=== PATIENT | male | born 1970 | race Caucasian/White ===

== ENCOUNTER 2020-06-17 00:49 | Inpatient (IN) | payer OTHER, SELFPAY ==
[2020-06-17] MEDS ORDERED: Nitroglycerin 2% Ointment 1 INCH/1 GM Packet ONE (01:12)
[2020-06-17 01:36] LABS: #Basophils 0.1 thou/uL (0.0-0.2); #Eosinphils 0.2 thou/uL (0.0-0.7); #Lymphocytes 2.1 thou/uL (1.20-3.40); #Neutrophils 10.7 thou/uL (1.40-6.50); %Basophils 0.8 % (0.0-1.0); %Eosinophils 1.5 % (0.0-10.0); %Monocytes 6.9 % (0.0-10.0); %Neutrophils 75.9 % (42.0-75.0); Hemoglobin 14.8 g/dL (14.0-18.0); Mean Corpuscular HGB CONC 31.3 g/dL (32.0-36.0); Mean Corpuscular Hemoglobin 31.3 pg (27.0-31.0); Mean Platelet Volume 7.5 fL (7.4-10.4); Platelet Count 293 thou/uL (130-400); RBC Distribution Width 13.6 % (11.5-14.5); Red Blood Cell (RBC) Count 4.74 mill/uL (4.70-6.10); White Blood Cell (WBC) Count 14.1 thou/uL (4.8-10.8)
[2020-06-17 01:56] LABS: ALT (SGPT) 61 U/L (8-55); AST (SGOT) 37 U/L (5-34); Albumin 3.5 g/dL (3.5-5.0); Alkaline Phosphatase 110 U/L (40-110); Anion Gap 15 mmol/L (10-20); BUN (Urea Nitrogen) 29 mg/dL (8.9-20.6); Calc. Creatinine Clearance 0 mL/min (70-130); Calcium 8.3 mg/dL (7.8-10.44); Carbon Dioxide 24 mmol/L (22-29); Chloride 107 mmol/L (98-107); Globulin 2.7 g/dL (2.4-3.5); Glucose 157 mg/dL (70-105); Potassium 4.6 mmol/L (3.5-5.1); Protein, Total 6.2 g/dL (6.0-8.3); Sodium 141 mmol/L (136-145)
[2020-06-17] MEDS ORDERED: Aspirin 325 MG TAB ONE (02:22)
[2020-06-17 02:30] LABS: CKMB 2.1 ng/mL (0-6.6)
[2020-06-17 02:55] LABS: SARS-CoV-2 NAA Rapid Test Not Detected (NotDetected)
[2020-06-17] MEDS ORDERED: Furosemide 40 MG/4 ML VIAL ONE (03:11)
[2020-06-17] MEDS ORDERED: Labetalol HCl 100 MG/20 ML VIAL SLOW IVP PRN (03:55)
[2020-06-17] MEDS ORDERED: hydrALAZINE 20 MG/ML VIAL SLOW IVP PRN (03:55)
[2020-06-17] MEDS ORDERED: Bisacodyl 5 MG TAB PO PRN (03:55)
--- NOTE | 2020-06-17 03:55 | PDOC.HHP ---
Hospitalist HPI - History of Present Illness History of Present Illness: ADMISSION DATE: 06/17/2020 TIME OF ASSESSMENT: 08 29 PRIMARY CARE PHYSICIAN: Junior Lester CHIEF COMPLAINT: Difficulty breathing and leg swelling x3 weeks HPI: Patient is a 49-year-old male past medical history significant for congestive heart failure, hypertension, and arthritis. He states he was diagnosed with congestive heart failure a year ago but has never had an echo completed or seen a cook helper dessert. Patient states that 3 weeks ago his legs began to swell intermittently and he had difficulty lying flat at night when sleeping and would also become short of breath with exertion. At times he would also experience a panic-like sensation due to feeling like he could not breathe. Three weeks ago he states he weighed 243 pounds and he is currently at 290 when he last weighed himself today. Patient also states that he has had some increased swelling in his stomach and has a harder time having a bowel movement. Patient denies chest pain, contact with sick persons, fever, urinary symptoms. He does say he takes a "fluid pill" sometimes but it does not seem to help him. ED COURSE: Vital Signs: Blood pressure 97/69, pulse 63, respiratory rate 24, temp 98.7, 95% on 2 L oxygen Today in the ER they completed a chest x-ray, EKG, lab work. He was given aspirin 325 mg, Lasix 80 mg IV and nitro 1 inch topical. The nitro was removed once patient started to become hypotensive. PAST MEDICAL HISTORY: CHF, hypertension, psoriasis arthritis PAST SURGICAL HISTORY: No surgical history SOCIAL HISTORY: Patient lives at home. He has no tobacco smoking history. He denies current alcohol use. He does not frequently use marijuana. FAMILY HISTORY: Hypertension ALLERGIES: CodeineGI discomfort CURRENT MEDICATIONS: "Fluid pill" Hospitalist ROS - Review of Systems Constitutional: reports: other (weight gain) Respiratory: reports: shortness of breath, SOB with excertion Cardiovascular: reports: orthopnea, paroxysmal noc. dyspnea, edema Gastrointestinal: reports: constipation All other systems reviewed; all pertinent +/- noted in HPI/Subj - Exam General Appearance: NAD, awake alert Eye: PERRL ENT: normocephalic atraumatic Neck: supple Heart: RRR, no murmur, no gallops, no rubs, diminshed peripheral pulses Respiratory: CTAB, no wheezes, no rales, no ronchi, normal chest expansion Gastrointestinal: non-tender, normal bowel sounds, no guarding, distended Extremities - other findings: 3+ edema BLE, chronic venous stasis changes Neurological: no focal deficits Musculoskeletal: no muscle wasting Psychiatric: normal affect, normal behavior, A&O x 3 Hospitalist Results - Labs Result Diagrams: 06/17/20 01:26 06/17/20 01:26 Lab results: WBC 14.1 thou/uL (4.8-10.8) H 06/17/20 01:26 Hgb 14.8 g/dL (14.0-18.0) 06/17/20 01:26 Hct 47.4 % (42.0-52.0) 06/17/20 01: MCV 100.0 fL (78.0-98.0) H 06/17/20 01:26 Plt Count 293 thou/uL (130-400) 06/17/20 01:26 Neutrophils % 75.9 % (42.0-75.0) H 06/17/20 01:26 Sodium 141 mmol/L (136-145) 06/17/20 01:26 Potassium 4.6 mmol/L (3.5-5.1) 06/17/20 01:26 Chloride 107 mmol/L (98-107) 06/17/20 01:26 Carbon Dioxide 24 mmol/L (22-29) 06/17/20 01:26 BUN 29 mg/dL (8.9-20.6) H 06/17/20 01:26 Creatinine 1.76 mg/dL (0.7-1.3) H 06/17/20 01:26 Glucose 157 mg/dL (70-105) H 06/17/20 01:26 Calcium 8.3 mg/dL (7.8-10.44) 06/17/20 01:26 Total Bilirubin 1.0 mg/dL (0.2-1.2) 06/17/20 01:26 AST 37 U/L (5-34) H 06/17/20 01:26 ALT 61 U/L (8-55) H 06/17/20 01:26 Alkaline Phosphatase 110 U/L (40-110) 06/17/20 01:26 CK-MB (CK-2) 2.1 ng/mL (0-6.6) 06/17/20 01:26 Troponin I 0.035 ng/mL (< 0.028) H 06/17/20 01:26 B-Natriuretic Peptide 1391.6 pg/mL (0-100) H 06/17/20 01:26 Serum Total Protein 6.2 g/dL (6.0-8.3) 06/17/20 01:26 Albumin 3.5 g/dL (3.5-5.0) 06/17/20 01:26 - EKG Interpretation EKG: Normal sinus rhythm with first-degree AV block, LVH 75 bpm - Radiology Interpretation Chest x-ray Status: image reviewed by me, report reviewed by me Hospitalist H&P A/P - Plan Plan: Acute CHF exacerbation BNP 1391.6 orthopnea, proximal nocturnal dyspnea, shortness of breath with exertion, 3+ edema to bilateral lower extremities Echo in a.m.no previous echo Cardiology, cardiac rehab, heart failure clinic referrals TSH and magnesium with BMP and CBC in a.m. Strict I&O Weigh patient dailybase weight 3 weeks ago was 243 and patient states he currently weighs 290 Elevated troponins Monitor on telemetry Denies any chest pain Continue to trend troponins Possibly slightly elevated due to demand from heart failure MAXINE Current GFR 42, previous from 2018 was 67 Current creatinine 1.76, previous was 1.17 in 2018 Continue to monitor, may show improvement after patient begins to diurese Hypertension Monitor every 4 hours Restart home medications once reconciledpatient unable to name any of his medications at this time VTE prophylaxis in place with Lovenox CODE STATUS: Full Surrogate decision maker is his mother
[2020-06-17 05:47] VITALS: BMI 39.5
[2020-06-17 06:22] LABS: Troponin I 0.051 ng/mL (< 0.028)
[2020-06-17] MEDS: Furosemide 40 MG/4 ML VIAL SLOW IVP SCH ×2 (07:14→14:23)
[2020-06-17] MEDS ORDERED: HumaLOG 300 UNITS/3 ML VIAL SC PRN (08:22)
[2020-06-17] MEDS ORDERED: Dextrose 50% Abboject 50 ML SYRINGE SLOW IVP PRN (08:22)
[2020-06-17] MEDS ORDERED: Dextrose 5% in Water 1,000 ML IV PRN (08:22)
--- NOTE | 2020-06-17 08:51 | RAD ---
EXAM: Chest one view: HISTORY: Dyspnea abdominal pain COMPARISON: 11/18/2017 FINDINGS: Heart size: Moderate cardiomegaly. Lungs: Clear of acute process. No evidence for confluent lobar pneumonia, significant pleural effusion, acute edema, or pneumothorax , or other significant acute process. IMPRESSION: Moderate cardiomegaly.
[2020-06-17] MEDS: Aspirin 325 mg Enteric Coated Tablet PO SCH (09:34)
[2020-06-17] MEDS: Enoxaparin Sodium 40 MG/0.4 ML SYRINGE SC SCH (09:34)
--- NOTE | 2020-06-17 14:13 | PDOC.HOSPP ---
- Subjective Encounter Date: 06/17/20 Encounter Time: 08:20 Subjective: no sob or chest pain has h/o progressive swelling of lower extrimities now creeping upto to lower half of abd no prior h/o heart failure or cad, has not had any cardiac w/u mother at bedside - Objective Vital Signs & Weight: Vital Signs (12 hours) Temp Pulse Pulse Pulse Resp BP BP 06/17/20 11:14 58 L 12 06/17/20 09:45 56 L 59 L 115/85 136/95 H 06/17/20 08:08 98 F 56 L 16 06/17/20 06:34 06/17/20 05:20 97.9 F 64 18 BP Pulse Ox 06/17/20 11:14 124/87 98 06/17/20 09:45 06/17/20 08:08 116/83 06/17/20 06:34 99 06/17/20 05:20 129/87 99 Weight Weight 275 lb 11.2 oz Result Diagrams: 06/17/20 01:26 06/17/20 01:26 Additional Labs: Accuchecks 06/17/20 11:13 POC Glucose 112 H Hospitalist ROS - Medication Medications: Active Medications Generic Name Dose Route Start Last Admin Trade Name Freq PRN Reason Stop Dose Admin Aspirin 325 mg 06/17/20 09:00 06/17/20 09:34 Aspirin 325 Mg Enteric Coated Tablet PO 325 mg DAILY BRIA Administration Enoxaparin Sodium 40 mg 06/17/20 09:00 06/17/20 09:34 Enoxaparin Sodium 40 Mg/0.4 Ml Syringe SC 40 mg 0900 BRIA Administration Furosemide 40 mg 06/17/20 06:00 06/17/20 07:14 Furosemide 40 Mg/4 Ml Vial SLOW IVP Not Given 0600,1400 BRIA Sodium Chloride 10 ml 06/17/20 09:00 06/17/20 09:34 Flush - Normal Saline 10 Ml Syringe IVF 10 ml Q12HR BRIA Administration - Exam General Appearance: awake alert Eye: PERRL, anicteric sclera ENT: no oropharyngeal lesions, moist mucosa Neck: supple, no JVD Heart: RRR, no murmur Respiratory: no wheezes, no ronchi, rales Gastrointestinal: soft, non-tender, normal bowel sounds Gastrointestinal - other findings: abd wall edema+ Extremities: no cyanosis, 2+ LE edema Neurological: cranial nerve grossly intact, no focal deficits Psychiatric: normal affect, A&O x 3 Hosp A/P (1) CHF exacerbation Code(s): I50.9 - HEART FAILURE, UNSPECIFIED Status: Suspected Qualifiers: Heart failure type: unspecified Qualified Code(s): I50.9 - Heart failure, unspecified (2) Cardiomyopathy Code(s): I42.9 - CARDIOMYOPATHY, UNSPECIFIED Status: Suspected Qualifiers: Cardiomyopathy type: unspecified Qualified Code(s): I42.9 - Cardiomyopathy, unspecified (3) Psoriasis Code(s): L40.9 - PSORIASIS, UNSPECIFIED Status: Chronic (4) HTN (hypertension) Code(s): I10 - ESSENTIAL (PRIMARY) HYPERTENSION Status: Chronic Qualifiers: Hypertension type: essential hypertension Qualified Code(s): I10 - Essential (primary) hypertension (5) MAXINE (acute kidney injury) Code(s): N17.9 - ACUTE KIDNEY FAILURE, UNSPECIFIED Status: Acute (6) DM type 2 (diabetes mellitus, type 2) Status: Acute Qualifiers: Diabetes mellitus detention insulin use: without adjunct faculty for medical terminology use (7) Obesity (BMI 30-39.9) Code(s): E66.9 - OBESITY, UNSPECIFIED Status: Chronic - Plan gentle diuresis, watch for renal function cardiology consultation, echo pending has enormous weight gain of around 47lbs in 3-4 weeks (from 243 to 290lbs) continue aspirin marcella hose to lower extremities he has h/o using cocaine 15yrs back for 5 yrs duration, thc off and on, no other drugs hemostable has no insurance/non compliance, might need stress test once he has diuresed well
[2020-06-17 17:26] LABS: Amphetamine Not Detected (NotDetected); Barbiturates Screen Not Detected (NotDetected); Benzodiazepine Screen Not Detected (NotDetected); Cocaine Metabolite Screen Not Detected (NotDetected); Medtox Control Line Valid? VALID (VALID); Medtox Reader # READER 4; Methadone Not Detected (NotDetected); Methamphetamine Not Detected (NotDetected); Opiate Screen Not Detected (NotDetected); Oxycodone Screen Not Detected (NotDetected); Phencyclidine (PCP) Not Detected (NotDetected); THC/Cannabinoid Screen Detected (NotDetected); Tricyclic Screen Not Detected (NotDetected)
[2020-06-17 19:36] LABS: Acetaminophen Less than 6.0 mcg/mL (10.0-30.0); Alcohol Less than 10 mg/dL (Less than 10); Salicylate Less than 8.0 mg/dL (15.0-30.0)
[2020-06-17 22:37] LABS: HIV (1/2) Antibody/Antigen Non-Reactive (NonReactive); HIV 1/2 INDEX 0.09 S/CO (<1.00)
[2020-06-18] MEDS ORDERED: traZODone HCl 50 MG TAB PO SCH (00:15)
[2020-06-18 05:01] LABS: Anion Gap 17 mmol/L (10-20); BUN (Urea Nitrogen) 31 mg/dL (8.9-20.6); Calc. Creatinine Clearance 101 mL/min (70-130); Calcium 8.2 mg/dL (7.8-10.44); Carbon Dioxide 21 mmol/L (22-29); Chloride 106 mmol/L (98-107); Glucose 103 mg/dL (70-105); Magnesium 2.1 mg/dL (1.6-2.6); Potassium 4.2 mmol/L (3.5-5.1); Sodium 140 mmol/L (136-145)
[2020-06-18 05:11] LABS: #Basophils 0.1 thou/uL (0.0-0.2); #Eosinphils 0.2 thou/uL (0.0-0.7); #Neutrophils 5.9 thou/uL (1.40-6.50); %Basophils 0.6 % (0.0-1.0); %Eosinophils 1.8 % (0.0-10.0); %Lymphocytes 29.4 % (21.0-51.0); %Monocytes 9.5 % (0.0-10.0); %Neutrophils 58.6 % (42.0-75.0); Hemoglobin 14.6 g/dL (14.0-18.0); Mean Corpuscular HGB CONC 32.4 g/dL (32.0-36.0); Mean Corpuscular Hemoglobin 32.2 pg (27.0-31.0); Mean Corpuscular Volume 99.3 fL (78.0-98.0); Mean Platelet Volume 7.6 fL (7.4-10.4); Platelet Count 248 thou/uL (130-400); Platelet Morphology Comment Appears Adequate; RBC Distribution Width 13.7 % (11.5-14.5); RBC Morphology Normal; Red Blood Cell (RBC) Count 4.54 mill/uL (4.70-6.10)
[2020-06-18 05:15] LABS: HBCM Index 0.09 S/CO (0-0.79); HBSAg Index 0.19 S/CO (0-0.99); Hep A IgM AB Non-Reactive (NonReactive); Hep B Surf Ag Non-Reactive S/CO (NonReactive); Hep C IgG Ab Non-Reactive (NonReactive); Hep C Index 0.07 S/CO (0-0.79); Hepatitis B Core IgM Abs Non-Reactive (NonReactive)
[2020-06-18] MEDS: Furosemide 40 MG/4 ML VIAL SLOW IVP SCH ×2 (05:52→15:16)
--- NOTE | 2020-06-18 07:21 | CON ---
DATE OF CONSULTATION: 06/17/2020 INDICATION FOR CONSULTATION: A 49-year-old patient with new onset congestive heart failure. HISTORY OF PRESENT ILLNESS: This very unfortunate 49-year-old gentleman who has a history apparently diagnosed approximately a year ago stating that he was having some congestive heart failure. 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 He has a history of hypertension and tobacco abuse as well as arthritis. Recently, he gained over 30 to 40 pounds of weight and said he became increasingly short of breath and had lower extremity edema. He has had problems in the past for at least a year where he had some lower extremity edema on the left side, and this would resolve over time, but at this time, it did not resolve. He takes diuretics, but apparently, they have not been working, and he presented to the emergency room. He denied any significant chest pain. He said he does have some fullness with some tightness when he gets volume overloaded, but otherwise says he had been doing relatively well. PAST MEDICAL HISTORY: Significant for congestive heart failure, hypertension, psoriasis. He has diabetes. He has problems with sleeping. He has depression. PAST SURGICAL HISTORY: He has had no previous surgeries. SOCIAL HISTORY: He lives with family. He has smoked a half a pack a day for up to 30 years. He has no significant alcohol use. He occasionally uses marijuana. FAMILY HISTORY: Positive for hypertension, but no significant congestive heart failure or early deaths. ALLERGIES: HE IS ALLERGIC TO CODEINE WHICH CAUSES GI UPSET. MEDICATIONS: He takes medicines for his blood pressure, for diabetes, and he takes metformin on a p.r.n. basis, he has medicines to help sleep, he has medicines for depression, and he also takes potassium and most likely he takes furosemide, he is uncertain of the dose. REVIEW OF SYSTEMS: A 12-point review of systems is unremarkable except what is noted in the history of present illness. He denies any GI or complaints or musculoskeletal complaints except for the edema and no neurological complaints. PHYSICAL EXAMINATION: GENERAL: Reveals a morbidly obese gentleman who is awake and alert. He is very pleasant. HEENT: Unremarkable. PULMONARY: His chest actually does not show any significant rales, rhonchi, or wheezing. It is clear overall. CARDIOVASCULAR: He has a regular rate and rhythm. There are no gross murmurs noted. ABDOMEN: Shows morbid obesity without any significant abnormality. EXTREMITIES: Show 2+ lower extremity edema all the way up to the groin. NEUROLOGIC: He appears to be intact. LABORATORY DATA: Shows a WBC of 14.1, hemoglobin 14.8, platelet count was 293,000. His BNP was 1391. Troponin I was 0.03, increased up to 0.05. Sodium was 141, potassium 4.6, BUN was 29, creatinine 1.76, and blood sugar was 157. He did have an echocardiogram today which showed an ejection fraction of 10% to 15% with significantly dilated right ventricle and also left atrium was dilated, and I believe he had left ventricular dilatation also. His EKG shows a sinus rhythm with a first-degree AV heart block and a left bundle-branch block. IMPRESSION: 1. Congestive heart failure with significant cardiomyopathy of uncertain etiology. He denied any significant illicit drug use in the past such as crack cocaine or any other cocaine type substances that may have caused this. It may be due to diabetes and long-standing hypertension. We will need to diurese the patient significantly, and then once he is diuresed, I would suggest he undergo a cardiac catheterization to rule out evidence of severe underlying coronary artery disease as the possible etiology of the cardiomyopathy. 2. Mild diabetes. He most likely should be placed on some type of medication and so may be better at this time. Metformin may not be the best choice with his congestive heart failure. 3. He has a history of hypertension. The blood pressure is under good control at this time. 4. History of depression. I do not know exactly what medicines he was taking, but this may need to be addressed, and we can start him back on his medications. We will continue to follow the patient with you throughout his hospital course. He will certainly need diuresis and then a cardiac catheterization when he is stable to undergo the procedure. 5. Left bundle-branch block. We are uncertain of the duration of this, which also most likely is associated with his dilatation and possible underlying coronary disease. Job ID: [id number]
[2020-06-18] MEDS: Aspirin 325 mg Enteric Coated Tablet PO SCH (08:55)
[2020-06-18] MEDS: Enoxaparin Sodium 40 MG/0.4 ML SYRINGE SC SCH (08:56)
[2020-06-18] MEDS ORDERED: hydrALAZINE 25 MG TAB PO SCH (15:00)
--- NOTE | 2020-06-18 15:44 | PDOC.HOSPP ---
- Subjective Encounter Date: 06/18/20 Encounter Time: 11:00 Subjective: Patient up in chair denies any complaints. - Objective Vital Signs & Weight: Vital Signs (12 hours) Temp Pulse Pulse Pulse Resp BP BP 06/18/20 15:11 98.5 F 71 18 06/18/20 10:56 98.5 F 74 17 06/18/20 10:30 77 73 167/120 H 148/102 H 06/18/20 08:40 97.4 F L 71 14 06/18/20 04:00 97.6 F 70 15 BP BP Pulse Ox 06/18/20 15:11 174/108 H 100 06/18/20 10:56 162/109 H 99 06/18/20 10:30 06/18/20 08:40 171/113 H 95 06/18/20 04:00 134/83 96 Weight Weight 275 lb 9.6 oz I&O: 06/17/20 06/18/20 06/19/20 06:59 06:59 06:59 Intake Total 730 Output Total 1400 Balance -670 Result Diagrams: 06/18/20 03:18 06/18/20 03:18 Additional Labs: Accuchecks 06/18/20 06/17/20 06/17/20 05:32 20:36 16:08 POC Glucose 116 H 177 H 133 H Hospitalist ROS - Review of Systems Cardiovascular: denies: chest pain, palpitations, orthopnea, paroxysmal noc. dyspnea, edema, light headedness, other Gastrointestinal: denies: nausea, vomiting, abdominal pain, diarrhea, constipation, melena, hematochezia, other Genitourinary: denies: dysuria, frequency, incontinence, hematuria, retention, other - Medication Medications: Active Medications Generic Name Dose Route Start Last Admin Trade Name Freq PRN Reason Stop Dose Admin Aspirin 325 mg 06/17/20 09:00 06/18/20 08:55 Aspirin 325 Mg Enteric Coated Tablet PO 325 mg DAILY BRIA Administration Enoxaparin Sodium 40 mg 06/17/20 09:00 06/18/20 08:56 Enoxaparin Sodium 40 Mg/0.4 Ml Syringe SC 40 mg 0900 BRIA Administration Furosemide 40 mg 06/17/20 06:00 06/18/20 15:16 Furosemide 40 Mg/4 Ml Vial SLOW IVP 40 mg 0600,1400 BRIA Administration Hydralazine HCl 50 mg 06/18/20 15:00 06/18/20 15:16 Hydralazine 25 Mg Tab PO 50 mg TID BRIA Administration Sodium Chloride 10 ml 06/17/20 09:00 06/18/20 08:56 Flush - Normal Saline 10 Ml Syringe IVF 10 ml Q12HR BRIA Administration - Exam Neck: negative: supple, symmetric, no JVD, no thyromegaly, no lymphadenopathy, no carotid bruit, JVD Heart: negative: RRR, no murmur, no gallops, no rubs, normal peripheral pulses, irregular, diminshed peripheral pulses, murmur present, II/IV, III/IV Respiratory: negative: CTAB, no wheezes, no rales, no ronchi, normal chest expansion, no tachypnea, normal percussion, rales, rhonchi, tachypneic, wheezes Gastrointestinal: negative: soft, non-tender, non-distended, normal bowel sounds, no palpable masses, no hepatomegaly, no splenomegaly, no bruit, no guarding, no rigidity, tender to palpation, distended, diminished bowl sounds, voluntary guarding Hosp A/P - Plan (1) CHF exacerbation Code(s): I50.9 - HEART FAILURE, UNSPECIFIED Status: Suspected Qualifiers: Heart failure type: unspecified Qualified Code(s): I50.9 - Heart failure, unspecified (2) Cardiomyopathy Code(s): I42.9 - CARDIOMYOPATHY, UNSPECIFIED Status: Suspected Qualifiers: Cardiomyopathy type: unspecified Qualified Code(s): I42.9 - Cardiomyopathy, unspecified (3) Psoriasis Code(s): L40.9 - PSORIASIS, UNSPECIFIED Status: Chronic (4) HTN (hypertension) Code(s): I10 - ESSENTIAL (PRIMARY) HYPERTENSION Status: Chronic Qualifiers: Hypertension type: essential hypertension Qualified Code(s): I10 - Essential (primary) hypertension (5) MAXINE (acute kidney injury) Code(s): N17.9 - ACUTE KIDNEY FAILURE, UNSPECIFIED Status: Acute (6) DM type 2 (diabetes mellitus, type 2) Status: Acute Qualifiers: Diabetes mellitus terminal superintendent insulin use: without [facility] use (7) Obesity (BMI 30-39.9) Code(s): E66.9 - OBESITY, UNSPECIFIED Status: Chronic - Plan gentle diuresis, watch for renal function cardiology consultation, echo pending has enormous weight gain of around 47lbs in 3-4 weeks (from 243 to 290lbs) continue aspirin marcella hose to lower extremities he has h/o using cocaine 15yrs back for 5 yrs duration, thc off and on, no other drugs hemostable has no insurance/non compliance, might need stress test once he has diuresed well 1/2 patient will undergo cardiac catheterization per manager science notes. will increase his blood pressure medication.
[2020-06-18] MEDS: hydrALAZINE 25 MG TAB PO SCH (20:44)
[2020-06-18] MEDS: traZODone HCl 50 MG TAB PO SCH (20:44)
[2020-06-19 04:09] LABS: #Basophils 0.1 thou/uL (0.0-0.2); #Eosinphils 0.2 thou/uL (0.0-0.7); #Lymphocytes 2.3 thou/uL (1.20-3.40); #Monocytes 0.7 thou/uL (0.11-0.59); #Neutrophils 5.8 thou/uL (1.40-6.50); %Basophils 1.1 % (0.0-1.0); %Eosinophils 1.7 % (0.0-10.0); %Lymphocytes 25.2 % (21.0-51.0); %Monocytes 8.1 % (0.0-10.0); Hemoglobin 14.4 g/dL (14.0-18.0); Mean Corpuscular Hemoglobin 31.5 pg (27.0-31.0); Mean Corpuscular Volume 98.2 fL (78.0-98.0); Mean Platelet Volume 8.8 fL (7.4-10.4); Platelet Count 283 thou/uL (130-400); RBC Distribution Width 13.7 % (11.5-14.5); Red Blood Cell (RBC) Count 4.58 mill/uL (4.70-6.10); White Blood Cell (WBC) Count 9.1 thou/uL (4.8-10.8)
[2020-06-19 04:33] LABS: Anion Gap 16 mmol/L (10-20); BUN (Urea Nitrogen) 28 mg/dL (8.9-20.6); Calc. Creatinine Clearance 108 mL/min (70-130); Calcium 8.4 mg/dL (7.8-10.44); Carbon Dioxide 24 mmol/L (22-29); Chloride 104 mmol/L (98-107); Glucose 123 mg/dL (70-105); Potassium 4.2 mmol/L (3.5-5.1); Sodium 140 mmol/L (136-145)
[2020-06-19] MEDS: Furosemide 40 MG/4 ML VIAL SLOW IVP SCH ×2 (05:50→14:20)
[2020-06-19] MEDS: hydrALAZINE 25 MG TAB PO SCH ×3 (08:47→21:59)
[2020-06-19] MEDS: Enoxaparin Sodium 40 MG/0.4 ML SYRINGE SC SCH (08:48)
[2020-06-19] MEDS: Aspirin 325 mg Enteric Coated Tablet PO SCH (08:48)
[2020-06-19] MEDS ORDERED: cloNIDine 0.1 MG TAB PO SCH (09:45)
--- NOTE | 2020-06-19 16:00 | PDOC.HOSPP ---
- Subjective Encounter Date: 06/19/20 Encounter Time: 10:00 Subjective: pt up in bed sleeping - Objective Vital Signs & Weight: Vital Signs (12 hours) Temp Pulse Pulse Resp BP BP BP 06/19/20 14:20 70 06/19/20 11:05 98 F 70 16 138/85 06/19/20 09:53 64 137/90 126/79 06/19/20 08:47 72 06/19/20 07:30 06/19/20 07:21 97.8 F 72 16 06/19/20 04:27 97.5 F L 64 18 BP Pulse Ox 06/19/20 14:20 06/19/20 11:05 98 06/19/20 09:53 06/19/20 08:47 06/19/20 07:30 98 06/19/20 07:21 164/100 H 98 06/19/20 04:27 158/97 H 95 Weight Weight 267 lb I&O: 06/18/20 06/19/20 06/20/20 06:59 06:59 06:59 Intake Total 730 1810 Output Total 1400 3925 Balance -670 -2115 Result Diagrams: 06/19/20 03:10 06/19/20 03:10 Additional Labs: Accuchecks 06/19/20 06/19/20 06/18/20 10:42 06:14 20:38 POC Glucose 121 H 117 H 110 H 06/18/20 17:00 POC Glucose 119 H Hospitalist ROS - Review of Systems Cardiovascular: denies: chest pain, palpitations, orthopnea, paroxysmal noc. dyspnea, edema, light headedness, other Gastrointestinal: denies: nausea, vomiting, abdominal pain, diarrhea, constip ation, melena, hematochezia, other Genitourinary: denies: dysuria, frequency, incontinence, hematuria, retention, other - Medication Medications: Active Medications Generic Name Dose Route Start Last Admin Trade Name Pachecoq PRN Reason Stop Dose Admin Aspirin 325 mg 06/17/20 09:00 06/19/20 08:48 Aspirin 325 Mg Enteric Coated Tablet PO 325 mg DAILY BRIA Administration Enoxaparin Sodium 40 mg 06/17/20 09:00 06/19/20 08:48 Enoxaparin Sodium 40 Mg/0.4 Ml Syringe SC 40 mg 09 BRIA Administration Furosemide 40 mg 06/17/20 06:00 06/19/20 14:20 Furosemide 40 Mg/4 Ml Vial SLOW IVP 40 mg 0600,1400 BRIA Administration Hydralazine HCl 75 mg 06/18/20 21:00 06/19/20 14:20 Hydralazine 25 Mg Tab PO 75 mg TID BRIA Administration Metoprolol Succinate 100 mg 06/19/20 09:00 06/19/20 08:48 Metoprolol Succinate Xl 100 Mg Tab PO 100 mg DAILY BRIA Administration Sodium Chloride 10 ml 06/17/20 09:00 06/19/20 08:56 Flush - Normal Saline 10 Ml Syringe IVF 10 ml Q12HR BRIA Administration Trazodone HCl 100 mg 06/18/20 21:00 06/18/20 20:44 Trazodone Hcl 50 Mg Tab PO 100 mg HS BRIA Administration - Exam Neck: negative: supple, symmetric, no JVD, no thyromegaly, no lymphadenopathy, no carotid bruit, JVD Heart: negative: RRR, no murmur, no gallops, no rubs, normal peripheral pulses, irregular, diminshed peripheral pulses, murmur present, II/IV, III/IV Respiratory: negative: CTAB, no wheezes, no rales, no ronchi, normal chest expansion, no tachypnea, normal percussion, rales, rhonchi, tachypneic, wheezes Gastrointestinal: negative: soft, non-tender, non-distended, normal bowel sounds, no palpable masses, no hepatomegaly, no splenomegaly, no bruit, no guarding, no rigidity, tender to palpation, distended, diminished bowl sounds, voluntary guarding Extremities: 1+ LE edema Extremities - other findings: some scabs to left lower ext with mild discharge Hosp A/P - Plan (1) CHF exacerbation Code(s): I50.9 - HEART FAILURE, UNSPECIFIED Status: Suspected Qualifiers: Heart failure type: unspecified Qualified Code(s): I50.9 - Heart failure, unspecified (2) Cardiomyopathy Code(s): I42.9 - CARDIOMYOPATHY, UNSPECIFIED Status: Suspected Qualifiers: Cardiomyopathy type: unspecified Qualified Code(s): I42.9 - Cardiomyopathy, unspecified (3) Psoriasis Code(s): L40.9 - PSORIASIS, UNSPECIFIED Status: Chronic (4) HTN (hypertension) Code(s): I10 - ESSENTIAL (PRIMARY) HYPERTENSION Status: Chronic Qualifiers: Hypertension type: essential hypertension Qualified Code(s): I10 - Essential (primary) hypertension (5) MAXINE (acute kidney injury) Code(s): N17.9 - ACUTE KIDNEY FAILURE, UNSPECIFIED Status: Acute (6) DM type 2 (diabetes mellitus, type 2) Status: Acute Qualifiers: Diabetes mellitus terminal press operator insulin use: without longterm use (7) Obesity (BMI 30-39.9) Code(s): E66.9 - OBESITY, UNSPECIFIED Status: Chronic - Plan gentle diuresis, watch for renal function cardiology consultation, echo pending has enormous weight gain of around 47lbs in 3-4 weeks (from 243 to 290lbs) continue aspirin marcella hose to lower extremities he has h/o using cocaine 15yrs back for 5 yrs duration, thc off and on, no other drugs hemostable has no insurance/non compliance, might need stress test once he has diuresed well 1/2 patient will undergo cardiac catheterization per defense attorney notes. will increase his blood pressure medication. 1/3 pt has some scabs to his left lower ext but has no elevated wbc or fever. will monitor for now. bp meds adjusted will monitor. possible cath in am. pt is diuresing well will continue lasix for now.
[2020-06-19] MEDS: traZODone HCl 50 MG TAB PO SCH (21:59)
[2020-06-20 04:40] LABS: #Basophils 0.1 thou/uL (0.0-0.2); #Eosinphils 0.2 thou/uL (0.0-0.7); Mean Corpuscular Volume 97.8 fL (78.0-98.0)
[2020-06-20 04:51] LABS: Anion Gap 14 mmol/L (10-20); BUN (Urea Nitrogen) 33 mg/dL (8.9-20.6); Calc. Creatinine Clearance 92 mL/min (70-130); Calcium 8.3 mg/dL (7.8-10.44); Carbon Dioxide 26 mmol/L (22-29); Chloride 105 mmol/L (98-107); Glucose 135 mg/dL (70-105); Potassium 3.9 mmol/L (3.5-5.1); Sodium 141 mmol/L (136-145)
[2020-06-20 05:03] LABS: #Lymphocytes 2.2 thou/uL (1.20-3.40); #Monocytes 0.8 thou/uL (0.11-0.59); #Neutrophils 4.6 thou/uL (1.40-6.50); %Basophils 1.7 % (0.0-1.0); %Eosinophils 2.3 % (0.0-10.0); %Monocytes 10.2 % (0.0-10.0); %Neutrophils 57.9 % (42.0-75.0); Hemoglobin 13.7 g/dL (14.0-18.0); Mean Corpuscular HGB CONC 30.1 g/dL (32.0-36.0); Mean Corpuscular Hemoglobin 29.4 pg (27.0-31.0); Mean Platelet Volume 7.6 fL (7.4-10.4); Platelet Count 282 thou/uL (130-400); RBC Distribution Width 13.5 % (11.5-14.5); Red Blood Cell (RBC) Count 4.66 mill/uL (4.70-6.10); White Blood Cell (WBC) Count 7.9 thou/uL (4.8-10.8)
[2020-06-20] MEDS: Furosemide 40 MG/4 ML VIAL SLOW IVP SCH (05:36)
[2020-06-20] MEDS: Enoxaparin Sodium 40 MG/0.4 ML SYRINGE SC SCH (09:44)
[2020-06-20] MEDS: hydrALAZINE 25 MG TAB PO SCH ×3 (09:44→21:09)
[2020-06-20] MEDS: Aspirin 325 mg Enteric Coated Tablet PO SCH (10:43)
--- NOTE | 2020-06-20 13:17 | PDOC.HOSPP ---
- Subjective Encounter Date: 06/20/20 Encounter Time: 11:30 Subjective: pt up in chair no complains - Objective Vital Signs & Weight: Vital Signs (12 hours) Temp Pulse Pulse Pulse Resp BP BP 06/20/20 11:09 98 F 60 16 06/20/20 10:16 64 67 169/97 H 139/93 H 06/20/20 09:44 62 06/20/20 07:48 06/20/20 07:42 98.1 F 62 16 06/20/20 04:40 98.3 F 66 18 BP BP Pulse Ox 06/20/20 11:09 132/80 99 06/20/20 10:16 06/20/20 09:44 06/20/20 07:48 98 06/20/20 07:42 147/81 H 98 06/20/20 04:40 153/98 H 99 Weight Weight 266 lb I&O: 06/19/20 06/20/20 06/21/20 06:59 06:59 06:59 Intake Total 1810 1100 Output Total 3925 2400 Balance -2115 -1300 Result Diagrams: 06/20/20 04:22 06/20/20 04:22 Additional Labs: Accuchecks 06/20/20 06/20/20 06/19/20 10:13 05:06 21:55 POC Glucose 151 H 126 H 147 H Hospitalist ROS - Review of Systems Respiratory: denies: cough, dry, shortness of breath, hemoptysis, SOB with excertion, pleuritic pain, sputum, wheezing, other Cardiovascular: denies: chest pain, palpitations, orthopnea, paroxysmal noc. dyspnea, edema, light headedness, other Gastrointestinal: denies: nausea, vomiting, abdominal pain, diarrhea, constipation, melena, hematochezia, other Genitourinary: denies: dysuria, frequency, incontinence, hematuria, retention, other - Medication Medications: Active Medications Generic Name Dose Route Start Last Admin Trade Name Freq PRN Reason Stop Dose Admin Enoxaparin Sodium 40 mg 06/17/20 09:00 06/20/20 09:44 Enoxaparin Sodium 40 Mg/0.4 Ml Syringe SC 40 mg 0900 BRIA Administration Furosemide 40 mg 06/17/20 06:00 06/20/20 05:36 Furosemide 40 Mg/4 Ml Vial SLOW IVP 40 mg 0600,1400 BRIA Administration Hydralazine HCl 75 mg 06/18/20 21:00 06/20/20 09:44 Hydralazine 25 Mg Tab PO 75 mg TID BRIA Administration Metoprolol Succinate 100 mg 06/19/20 09:00 06/20/20 09:44 Metoprolol Succinate Xl 100 Mg Tab PO 100 mg DAILY BRIA Administration Sodium Chloride 10 ml 06/17/20 09:00 06/20/20 09:44 Flush - Normal Saline 10 Ml Syringe IVF 10 ml Q12HR BRIA Administration Trazodone HCl 100 mg 06/18/20 21:00 06/19/20 21:59 Trazodone Hcl 50 Mg Tab PO 100 mg HS BRIA Administration - Exam ENT: negative: normocephalic atraumatic, no oropharyngeal lesions, moist mucosa, dry oral mucosa Neck: negative: supple, symmetric, no JVD, no thyromegaly, no lymphadenopathy, no carotid bruit, JVD Heart: negative: RRR, no murmur, no gallops, no rubs, normal peripheral pulses, irregular, diminshed peripheral pulses, murmur present, II/IV, III/IV Hosp A/P - Plan (1) CHF exacerbation Code(s): I50.9 - HEART FAILURE, UNSPECIFIED Status: Suspected Qualifiers: Heart failure type: unspecified Qualified Code(s): I50.9 - Heart failure, unspecified (2) Cardiomyopathy Code(s): I42.9 - CARDIOMYOPATHY, UNSPECIFIED Status: Suspected Qualifiers: Cardiomyopathy type: unspecified Qualified Code(s): I42.9 - Cardiomyopathy, unspecified (3) Psoriasis Code(s): L40.9 - PSORIASIS, UNSPECIFIED Status: Chronic (4) HTN (hypertension) Code(s): I10 - ESSENTIAL (PRIMARY) HYPERTENSION Status: Chronic Qualifiers: Hypertension type: essential hypertension Qualified Code(s): I10 - Essential (primary) hypertension (5) MAXINE (acute kidney injury) Code(s): N17.9 - ACUTE KIDNEY FAILURE, UNSPECIFIED Status: Acute (6) DM type 2 (diabetes mellitus, type 2) Status: Acute Qualifiers: Diabetes mellitus keno terminal operator insulin use: without keno terminal operator use (7) Obesity (BMI 30-39.9) Code(s): E66.9 - OBESITY, UNSPECIFIED Status: Chronic - Plan gentle diuresis, watch for renal function cardiology consultation, echo pending has enormous weight gain of around 47lbs in 3-4 weeks (from 243 to 290lbs) continue aspirin marcella hose to lower extremities he has h/o using cocaine 15yrs back for 5 yrs duration, thc off and on, no other drugs hemostable has no insurance/non compliance, might need stress test once he has diuresed well 06/18 patient will undergo cardiac catheterization per import/export agent notes. will increase his blood pressure medication. 06/19 pt has some scabs to his left lower ext but has no elevated wbc or fever. will monitor for now. bp meds adjusted will monitor. possible cath in am. pt is diuresing well will continue lasix for now. 06/20 will stop lasix since his creatinine has worsen a bit. pt going for cardiac cath in am. pt will need life vest on discharge.
[2020-06-20] MEDS ORDERED: Heparin 5,000 UNITS/ML VIAL SC SCH (15:00)
[2020-06-20] MEDS: Milrinone Lactate/D5W 20 MG in Premix Bag 1 BAG IV SCH (16:58)
--- NOTE | 2020-06-20 17:23 | CON ---
DATE OF CONSULTATION: 06/20/2020 HISTORY OF PRESENT ILLNESS: I am seeing Mr. Vega at our [facility] Telemetry Floor for electrophysiology consultation. His problems are, 1. Acute on chronic systolic congestive heart failure. a. A 2D echo from 06/17/2020 demonstrates LVEF of 10% to 15%, [id number] left atrial enlargement, mild TR. 2. Left bundle-branch block. 3. History of syncopal spells. 4. Renal insufficiency with creatinine of 1.5. 5. Type 2 diabetes. 6. Hypertension. 7. Elevated BMI. 8. History of smoking. ALLERGIES: CODEINE. MEDICATIONS: At home included, 1. Trazodone. 2. Metformin. 3. Hydralazine 50 mg 3 times a day. 4. Metoprolol succinate. 5. Lisinopril 40 mg daily. SUBJECTIVE: Mr. Vega is here with acute heart failure exacerbation. He states he has had issues with breathing and fluid overload spells for about a year ago, although he never ended up having an echocardiogram or seen a program scheduler. He was treated empirically with adequate heart failure regimen by Dr. Lester with ANANT inhibitors, beta blockers, and diuretics. More recently, he ended up gaining weight of about 40 pounds with progressive dyspnea, orthopnea, and peripheral swelling. It eventually brought him to the hospital. Also, he notes episodic syncopal spells, which happens while he is walking around, gets short of breath and then sometimes passes out. The exact duration is unclear, but had happened at least a couple of times this month. He has some rapid heartbeats at times. He has no fever, chills, or cough at this point. No burning on urination. No stroke-like symptoms. No neurological deficits. Rest of 12-point review of systems is otherwise unremarkable. PAST MEDICAL HISTORY: As above. Denies prior history of heart disease or heart attacks apart from above. He does have history of hypertension and psoriatic arthritis. 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 He denies current drug abuse or EtOH abuse. He has had a half a pack a day smoking for up to 30 years. FAMILY HISTORY: Significant for hypertension. No heart failure or early noted in the family history. OBJECTIVE: VITAL SIGNS: Blood pressure is 132/80, heart rate 60, respiratory rate 16 currently. On presentation, blood pressure was 129/87 and heart rate was 64. GENERAL: The physical exam reveals an alert and oriented man, in no apparent distress. NECK: Supple. Jugular veins are still slightly distended. Hepatojugular reflex is positive. No carotid bruits are heard. CHEST: Coarse. No crackles. Heart sounds are regular to rate and rhythm. No murmur or gallop. ABDOMEN: Benign. Bowel sounds are positive. EXTREMITIES: Lower extremities, 1+ bilateral edema. NEUROLOGIC: The patient is nonfocal. MUSCULOSKELETAL: Without joint swelling or deformity. SKIN: Without rash. DATABASE: The initial EKG from June 17, 2020, reveals sinus rhythm, left bundle-branch block, first-degree AV block, and QRS is 180 milliseconds. LABORATORY DATA: Shows white cell count 7.9, hemoglobin is 13.7, and platelet count is 282. Sodium 141, potassium 3.9, BUN is 33, creatinine 1.69. AST 37 on the . Troponin I's are 0.035, 0.05, and 0.04 on the 17 of June. BNP 1391 initially. The creatinine was 1.76, currently is at 1.69. The initial chest x-ray was consistent with moderate cardiomegaly. ASSESSMENT: Mr. Vega is a 49-year-old man with history of heart failure like symptoms over a year, treated with beta-blockers and jpjkwysobfd-haclzewomd-yjsomu inhibitors, hence his pre-existing history of diabetes and hypertension, but now has been hospitalized with acute fluid overload and heart failure exacerbation. Also, he has had his initial echocardiogram this admission, which does demonstrate severely reduced left ventricular ejection fraction in the 10% to 15% range. Additionally, he is noted to have a significant left bundle-branch block with widened QRS of 180 milliseconds. Concerning if his syncopal history is recurrent. Currently, he has no significant ventricular tachycardia on telemetry so far. His fluid overload is improving with diuresis and his renal function seems to be stabilizing. PLAN: His heart failure is likely pre-existing for at least a year and has been treated with adequate medical regimen. On the other hand, the echocardiogram has not been performed up until this admission. Nevertheless, based on his symptom history, likely the cardiomyopathy has been persistent. At this point, I agree with the plans for heart catheterization to rule out significant reversible coronary artery disease. Should that not be the case and he does not need any revascularization, it likely would be reasonable to consider for a Bi-V ICD implantation. The effect of heart failure symptoms over a year and the adequate medical regimen he was already taking and additionally the high risk for recurrent ventricular arrhythmias with his syncopal spells would make early implantation of ICD as reasonable option. We have discussed these with him. Further discussion will be held after the left heart catheterization is complete. Risks and benefits of the procedure were discussed including chance of infection, bleeding, pneumothorax, tamponade, lead dislodgement, device malfunctions, and recalls. He understands and is considering this device. I would like to follow up with this gentleman while in the hospital along with you. Thank you again for allowing me to participate in the care of this patient. Job ID: [id number]
[2020-06-20] MEDS: traZODone HCl 50 MG TAB PO SCH (21:08)
[2020-06-21] MEDS: Milrinone Lactate/D5W 20 MG in Premix Bag 1 BAG IV SCH (01:19)
[2020-06-21 04:02] LABS: #Basophils 0.1 thou/uL (0.0-0.2); #Eosinphils 0.1 thou/uL (0.0-0.7); #Lymphocytes 2.3 thou/uL (1.20-3.40); #Monocytes 0.9 thou/uL (0.11-0.59); %Basophils 1.1 % (0.0-1.0); %Eosinophils 1.7 % (0.0-10.0); %Monocytes 10.8 % (0.0-10.0); %Neutrophils 59.4 % (42.0-75.0); Hemoglobin 13.3 g/dL (14.0-18.0); Mean Corpuscular HGB CONC 31.6 g/dL (32.0-36.0); Mean Corpuscular Hemoglobin 30.6 pg (27.0-31.0); Mean Corpuscular Volume 97.1 fL (78.0-98.0); Mean Platelet Volume 7.5 fL (7.4-10.4); Platelet Count 275 thou/uL (130-400); RBC Distribution Width 13.6 % (11.5-14.5); Red Blood Cell (RBC) Count 4.34 mill/uL (4.70-6.10); White Blood Cell (WBC) Count 8.5 thou/uL (4.8-10.8)
[2020-06-21 04:17] LABS: Hemoglobin A1c 8.4 % (4.0-6.0)
[2020-06-21 04:21] LABS: Anion Gap 14 mmol/L (10-20); BUN (Urea Nitrogen) 33 mg/dL (8.9-20.6); Calc. Creatinine Clearance 105 mL/min (70-130); Calcium 8.4 mg/dL (7.8-10.44); Carbon Dioxide 26 mmol/L (22-29); Cardiac Risk 2.7 (Less than 4.5); Chloride 105 mmol/L (98-107); Cholesterol 91 mg/dl (< 200 Desired); Glucose 122 mg/dL (70-105); HDL Cholesterol 34 mg/dL (>60 Neg Risk); LDL Cholesterol, Calculated 48 mg/dL; Potassium 3.6 mmol/L (3.5-5.1); Sodium 141 mmol/L (136-145); Triglycerides 47 mg/dL (Less than 150)
--- NOTE | 2020-06-21 05:51 | CON ---
DATE OF CONSULTATION: 06/20/2020 REASON FOR CONSULTATION: Management of acute on chronic heart failure. HISTORY OF PRESENT ILLNESS: Mr. Adrian Vega, 49-year-old gentleman with previous diagnosis of heart failure, presents with acute exacerbation. His heart trouble started back in 2018. 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 He noticed that he has increased edema. He saw his primary care at that time. His primary care thought it was diabetes. However, diabetes treatments may not have worked. He switched his primary care to Dr. Lester at [facility]. She diagnosed him with heart failure. He was treated with Toprol-XL, lisinopril, and also Lasix. As of one year ago, he can walk as much as he want. However, about 6 months ago, his walking distance has decreased down to just about 50 yards. Within the last 2-3 week, he could barely walk 20 feet. For last two months, he noticed increasing edema, shortness of breath and weakness. At nighttime, he has to sleep nearly sitting up. He no longer can sleep in bed. He has to sleep in recliner. In last month, he had to wake up during the night to sit up to breathe which is paroxysmal nocturnal dyspnea. This would happen about at least 2-3 times a night. This has been ongoing nightly for at least a month now. This has been making him very exhausted. Within the last several weeks, he has also increased edema. Increasing amount of diuretic does not seem to work. Eventually, combination of inability to sleep, increasing edema, shortness of breath and inability to exert himself caused him to seek care. He also has syncope episodes. This started about 2-3 months ago. He said these episodes will start very suddenly. He will first feel short of breath. Afterwards, he will feel chest pressure. Sometime quickly after that he will lose consciousness. This has occurred about 6 times within the last three months. These syncope episodes can occur any time , it has occurred while he is sitting. He tried to fight off this severe shortness of breath by controlled breathing. However, severe shortness of breath, chest pressure, and then followed by syncope will overwhelm him. He said that he is feeling better with hospitalization. He noticed the fluid is coming off. He also noticed that the fluid is not coming off that fast. He does not understand heart failure. As I was examining him and talking to him, he was eating lunch of Hebrew food with extra soy sauce. PAST MEDICAL HISTORY: 1. History of congestive heart failure, but there is no echocardiogram documented. 2. History of hypertension. 3. History of type 2 diabetes. However, the patient denied he ever really had diabetes, so this will need to be checked. SOCIAL HISTORY: 1. He has a 28 year smoking history. He was still smoking at time of admission. 2. He stopped drinking alcohol at 2009. 3. He denies cocaine, however, he admits to marijuana use. 4. 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 He is also . FAMILY HISTORY: His father of melanoma at age 77. His mother is still alive and well at age 77. She has hypertension and irregular heart beat, most likely atrial fibrillation. He has two brothers, who do not have cardiac problems. REVIEW OF SYSTEMS: GENERAL: Please see HPI for progressive fatigue, however, he does not have a fever, chills, or productive cough. HEENT: There is no change in vision, hearing, or swallowing. PULMONARY: Please see HPI. CARDIAC: Please see HPI. GI: There is no nausea, vomiting, or diarrhea. : He can urinate well on his own. MUSCULOSKELETAL: There is no complaint of muscular pains and joint pains, however, he has chronic back pain. INTEGUMENT: There is no new skin breakdown. NEUROLOGIC: There are no new focal deficits or weaknesses. ALLERGIES: CODEINE CAUSES NAUSEA. CURRENT MEDICATION: 1. Aspirin 81 mg daily. 2. Hydralazine 75 mg three times a day. 3. Sliding scale lispro insulin. 4. Toprol-XL 100 mg daily. 5. Trazodone 100 mg at bedtime. PHYSICAL EXAMINATION: Telemetry was reviewed. He is in sinus rhythm but with wide QRS. He does have occasional PVC and did have one run of 3-beat wide-complex tachycardia. He does have one run of 3-beat wide-complex tachycardia within last 12 hours. VITAL SIGNS: His current vitals are temperature 94 degrees, pulse 60, blood pressure 132/80, he is saturating at 99% on room air. GENERAL: He is alert and conversational, sitting up fairly comfortably in a chair. HEENT: Show EOMI. Oropharynx is benign with moist mucosa. NECK: His JVP is very elevated at about 15 cm. PULMONARY: He has good air movement bilaterally. There is clear to auscultation bilaterally. CARDIAC: Regular rate and rhythm with occasional irregularity. There is 2/6 holosystolic murmur at the left upper sternal border that likely to correspond to tricuspid regurgitation. There is also 1/6 holosystolic murmur near the apex. This would correspond to mitral regurgitation. ABDOMEN: Mildly distended, soft, nontender. BACK: He has presacral edema. He also has a hip edema. EXTREMITIES: Lower extremity; he has tense pitting edema from the bilateral feet all the way to the sides of the legs up to his hips. LABORATORY VALUES: From today are; white cell count 7.9, hemoglobin 13.7, and platelets at 282. His chemistry shows sodium 141, potassium 3.9, chloride 105, bicarb is 26, BUN 33, creatinine 1.69. His admission EKG was reviewed, it showed heart rate 72 with left bundle branch block like pattern. His QRS much wider than 140. His echocardiogram from June 17, 2020 was also reviewed. 06/17/2020 ECHOCARDIOGRAPHY IMPRESSION: 1. His left ventricle inner diameter is dilated at 5.8 cm. 2. His left ventricular ejection fraction is at 15%. 3. He has pseudo-normalization E and A waves, thus he has at least moderate (Grade 2) diastolic dysfunction. 4. His right ventricle is moderately dilated. 5. His right ventricle has moderately reduced function. Thus, he has severe left ventricular dysfunction and at least moderate amount of right ventricular dysfunction. ASSESSMENT: A 49-year-old gentleman has acute on chronic heart failure with reduced ejection fraction. He is likely to reside in AHA stage C and [place] Heart Association class 3B heart failure with reduced ejection fraction with combined systolic and diastolic dysfunctions. He is currently volume overloaded. He also has low cardiac output. Thus immediately we need to augment his cardiac function and also provide greater volume relief. It is concerning he has had 6 episodes of syncope. This could be due to left ventricular tachycardia or ventricular fibrillation or could be severe coronary artery disease. Undiagnosed severe coronary artery disease can do this. Thus he will need both electrophysiology consult and also coronary angiogram. With EF at 15% and heart failure being treated for over a year and syncope and wide QRS pattern with left bundle branch block, then cardiac resynchronization therapy with biventricular pacing and defibrillator will benefit him. Please see the following for my recommendations. RECOMMENDATIONS: 1. Start milrinone at 0.125 mcg/kg/minute. Increase to 0.25 mcg/kg/minute, if systolic blood pressure maintains above 100 mmHg. Afterwards, we can increase to 0.375 mcg/kg/minute. The rationale behind the milrinone is to increase cardiac output so he can diurese. In the future, we will be titrating this off. 2. If possible, decrease the trazodone to 50 mg daily that will give him more blood pressure to work with. 3. Continue with Toprol-XL 100 mg daily. 4. Once his milrinone is on board, we can restart IV Lasix for diuresis. 5. Please consult Electrophysiology for cardiac resynchronization therapy. At the minimal, he will need a LifeVest before his discharge. 6. The patient may have severe coronary artery disease. Once he is more stable with better kidney function and less fluid, he should undergo coronary angiogram to look for severe coronary artery disease. 7. This is most important of all; please help the patient with obtaining health insurance. This could be Medicaid or Medicare with disability. 8. Please check HBA1c for diabetes and lipid panel A long discussion took place with the patient and his mother. Five-year mortality is 50% and one-year mortality is 30% after admission to the hospital were discussed. The long-term healthcare needs were also discussed. Low-sodium, no more than 2000 mg per day was also discussed. Importantly, obtaining health insurance was also discussed. The patient and his mom seemed to express good understanding. It has been a pleasure taking care of Mr. Vega. If any questions, please give me a call. This visit took 75 minutes. Job ID: [id number] MTDD
[2020-06-21] MEDS: hydrALAZINE 25 MG TAB PO SCH ×3 (08:22→20:59)
[2020-06-21] MEDS: Heparin 5,000 UNITS/ML VIAL SC SCH ×3 (08:22→20:59)
[2020-06-21] MEDS: Aspirin 81 mg Enteric Coated Tablet PO SCH (08:22)
--- NOTE | 2020-06-21 08:22 | PDOC.EP ---
- Subjective Date: 06/21/20 Time: 08:21 - Review of Systems Constitutional: denies: chills, fever, malaise, sweats, weakness, other Respiratory: reports: SOB with excertion. denies: cough, dry, hemoptysis, pleuritic pain, shortness of breath, sputum, wheezing, other Cardiology: denies: chest pain, edema, heart racing, light headedness, paroxysmal noc. dyspnea, orthopnea, palpitations, passing out, pleuritic pain, pressure, swelling, other Gastrointestinal: denies: abdominal pain, constipation, diarrhea, hematochezia, melena, nausea, vomitting, other Musculoskeletal: denies: unstable gait, falls, neck pain, shoulder pain, arm pain, hand pain, leg pain, foot pain, other Neurological: denies: headache, vision changes, other - Objective Allergies/Adverse Reactions: Allergies Allergy/AdvReac Type Severity Reaction Status Date / Time codeine Allergy Mild Nausea Verified 06/17/20 06:24 Current Medications Acetaminophen (Acetaminophen 500 Mg Tab) 1,000 mg PO Q6H PRN PRN Reason: Mild Pain (1-3) Aspirin (Aspirin 81 Mg Enteric Coated Tablet) 81 mg PO DAILY BRIA Bisacodyl (Bisacodyl 5 Mg Tab) 10 mg PO DAILYPRN PRN PRN Reason: Constipation Dextrose/Water (Dextrose 50% Abboject 50 Ml Syringe) 25 gm SLOW IVP PRN PRN PRN Reason: Hypoglycemia Furosemide (Furosemide 40 Mg/4 Ml Vial) 40 mg SLOW IVP 0600,1400 [facility] Last Admin: 06/20/20 05:36 Dose: 40 mg Documented by: Glucagon (Glucagon 1 Mg/Ml Vial) 1 mg IM PRN PRN PRN Reason: Hypoglycemia Heparin Sodium (Porcine) (Heparin 5,000 Units/Ml Vial) 5,000 units SC TID [facility] Hydralazine HCl (Hydralazine 20 Mg/Ml Vial) 10 mg SLOW IVP Q4H PRN PRN Reason: SBP > 180 and HR < 70 Hydralazine HCl (Hydralazine 25 Mg Tab) 75 mg PO TID [facility] Last Admin: 06/20/20 21:09 Dose: 75 mg Documented by: Dextrose/Water (D5w) 1,000 mls @ 0 mls/hr IV .Q0M PRN PRN Reason: Hypoglycemia Milrinone Lactate/Dextrose 20 (mg/ Device) 100 mls @ 13.574 mls/hr IV INF BRIA; Protocol Last Admin: 06/21/20 01:19 Dose: 100 mls Documented by: Insulin Human Lispro (Humalog 300 Units/3 Ml Vial) 0 units SC .MODERATE SLIDING SC PRN PRN Reason: Moderate Correctional Scale Labetalol HCl (Labetalol Hcl 100 Mg/20 Ml Vial) 20 mg SLOW IVP Q4H PRN PRN Reason: SBP > 180 and HR >/= 70 Metoprolol Succinate (Metoprolol Succinate Xl 100 Mg Tab) 100 mg PO DAILY [facility] Last Admin: 06/20/20 09:44 Dose: 100 mg Documented by: Sodium Chloride (Flush - Normal Saline 10 Ml Syringe) 10 ml IVF Q12HR [facility] Last Admin: 06/20/20 21:10 Dose: Not Given Documented by: Sodium Chloride (Flush - Normal Saline 10 Ml Syringe) 10 ml IVF PRN PRN PRN Reason: Saline Flush Trazodone HCl (Trazodone Hcl 50 Mg Tab) 100 mg PO HS [facility] Last Admin: 06/20/20 21:08 Dose: 100 mg Documented by: Vital Signs & Weight: Vital Signs Temp Pulse Resp BP BP Pulse Ox 06/21/20 04:00 97.8 F 75 18 126/60 93 L 06/20/20 21:09 70 142/76 H Weight 268 lb 11.2 oz I/O: I/O 06/20/20 06/21/20 06/22/20 06:59 06:59 06:59 Intake Total 1100 1186 Output Total 2400 2450 Balance -1300 -1264 - Physical Exam General: alert & oriented x3, appears well HEENT: PERRL. negative: jaundice Neck: no JVD/HJR Cardiology: regular rate and rhythm, no murmur Lungs: clear to auscultation, normal breath sounds, no wheezes, no rales Neurology: grossly intact Abdomen: unremarkable, soft, non-tender Extremities: warm, + edema B Musculoskeletal: no pain - Labs Result Diagrams: 06/21/20 03:05 06/21/20 03:04 Labs: no biomarkers today - EKG Interpretation EKG Method: Telemetry EKG shows: Sinus rhythm - Assessment/Plan Assessment/Plan: 1. Acute on chronic systolic congestive heart failure. a. A 2D echo from 06/17/2020 demonstrates LVEF of 10% to 15%, [id number] b. Symptoms are improving with diuresis and milrinone. left atrial enlargement, mild TR. 2. Left bundle-branch block. 3. History of syncopal spells. 4. Renal insufficiency with creatinine of 1.5. 5. Type 2 diabetes. 6. Hypertension. 7. Elevated BMI. 8. History of smoking. PLAN: His heart failure is likely pre-existing for at least a year and has been treated with adequate medical regimen. Awaiting results of left heart catheterization to rule out significant reversible coronary artery disease. If he does not need any revascularization, consider for a Bi-V ICD implantation. Stable overnight.
[2020-06-21] MEDS ORDERED: Furosemide 100 MG/10 ML VIAL SLOW IVP SCH (09:30)
[2020-06-21] MEDS ORDERED: Potassium Chloride 20 MEQ TAB PO SCH (09:30)
--- NOTE | 2020-06-21 10:05 | PRG ---
DATE OF SERVICE: 06/21/2020 SUBJECTIVE: Mr. Vega had a good day. Milrinone was started last night. He said he felt a little bit better with that. He had a little bit more energy level and breathing a little easier. However, he did not sleep well because he was interrupted during the nighttime with multiple blood pressure measurements. He was seen by Dr. Smith. It is believed that he is a good candidate for biventricular pacing due to long-standing heart failure and the QRS interval about 200 milliseconds. We are currently waiting for coronary angiogram. REVIEW OF SYSTEMS: GENERAL: There is no fever, chills, or productive cough. HEENT: There is no change in vision, hearing, or swallowing. PULMONARY: Please see HPI. CARDIAC: There is no palpitation, chest pain, or syncope. GASTROINTESTINAL: There is no nausea, vomiting, or diarrhea. GENITOURINARY: He is urinating on his own. MUSCULOSKELETAL: There is no muscle or joint pain, but he has chronic back pain. INTEGUMENT: He does have some skin breakdowns that is chronic. He has pressure along his legs. NEUROLOGIC: There are no focal deficits or weaknesses. CURRENT MEDICATIONS: Include, 1. Aspirin 81 mg daily. 2. Lasix is currently on hold. 3. Glipizide 2.5 mg daily. 4. Hydralazine 75 mg 3 times a day. 5. Toprol-XL 100 mg daily. 6. Milrinone has been titrated up to 0.375 mcg/kg/minute. 7. Trazodone at 100 mg at bedtime. OBJECTIVE: TELEMETRY: Reviewed. He is in sinus rhythm with a bundle-branch block pattern. There is occasional PVC. Besides that, there are no concerning arrhythmias. VITAL SIGNS: Heart rate between 66 to 74. He has systolic blood pressure between 126 to 155 and diastolic blood pressure between 60 and 82. His input and output were 1186 in and 2450 out. This is net negative 1.2 L. GENERAL: He is alert and conversational, sitting comfortably in bed. HEENT: Show EOMI. Oropharynx is benign with moist mucosa. NECK: The JVP is elevated at about 14 to 15 cm. PULMONARY: Good air movement on top side of the lungs; however, he has a new appearance of right basilar crackles, so it is becoming more pulmonary edema. CARDIAC: Regular rate and rhythm. New 2/6 holosystolic murmur at the left upper sternal border corresponding to tricuspid regurgitation. There is also 2/6 holosystolic murmur at the apex corresponding to mitral regurgitation. ABDOMEN: Soft, nontender. Positive bowel sounds. EXTREMITIES: He has a slight presacral edema. Lower extremities, he has tense pitting edema from feet to legs to thighs to hips. LABORATORY DATA: His chemistry value has improved a bit today. Sodium 141, potassium 3.6, chloride 105, bicarb at 26, BUN 33, and creatinine has decreased down to 1.49. His hemoglobin A1c is 8.4. His BNP from yesterday was 1174. Cholesterol profile showed that he has low HDL of 34, but his LDL is only 48. ASSESSMENT: A 49-year-old gentleman has acute on chronic heart failure with reduced ejection fraction. He resides at [place] [employer] stage C, [place] heart Association class 3B heart failure with reduced ejection fraction with combined systolic and diastolic dysfunctions. He remains volume overloaded. Milrinone has improved and cardiac output to improve his renal function. It also gave him a net negative urine output despite no diuretics. However, he needs much more aggressive diuresis. He is also a bit hypertensive. He has enough blood pressure to initiate Entresto;however, due to upcoming angiogram, we will start it later. We are waiting on coronary angiogram. If the coronary angiogram does not show revascularizable coronary artery disease, then proceeding to [facility] will help him. Please see the following for my recommendations. RECOMMENDATIONS: 1. Change the furosemide to 60 mg IV b.i.d., first dose now. 2. Add isosorbide dinitrate 10 mg bid; after coronary angiogram, we will start Entresto 3. Start K-Dur at 20 mEq daily. 4. Please follow magnesium daily. We do not want him to have an arrhythmia. 5. We will switch him from Toprol-XL to carvedilol. This would give him better blood pressure control as a slightly better efficacy for heart failure. We will stop Toprol-XL tomorrow morning and changing to carvedilol 12.5 mg p.o. q.12 hours. It has been a pleasure taking care of Mr. Vega. If you have any questions, please give me a call. The duration of this total visit was 40 minutes. Job ID: [id number] MTDD
[2020-06-21] MEDS ORDERED: Isosorbide Dinitrate 5 MG TAB PO SCH (10:15)
--- NOTE | 2020-06-21 16:45 | PDOC.HOSPP ---
- Subjective Encounter Date: 06/21/20 Encounter Time: 11:45 Subjective: Patient up in bed no complaints. - Objective Vital Signs & Weight: Vital Signs (12 hours) Temp Pulse Pulse Pulse Resp BP BP 06/21/20 16:30 98.0 F 76 18 06/21/20 12:23 97.9 F 61 18 06/21/20 11:35 66 64 126/72 108/57 L 06/21/20 08:18 98.2 F 66 18 BP Pulse Ox 06/21/20 16:30 132/80 98 06/21/20 12:23 121/70 98 06/21/20 11:35 06/21/20 08:18 155/82 H 99 Weight Weight 268 lb 11.2 oz I&O: 06/20/20 06/21/20 06/22/20 06:59 06:59 06:59 Intake Total 1100 1186 Output Total 2400 2450 2600 Balance -1300 -1264 -2600 Result Diagrams: 06/21/20 03:05 06/21/20 03:04 Additional Labs: Accuchecks 06/21/20 06/21/20 06/20/20 10:27 06:14 20:51 POC Glucose 150 H 117 H 119 H 06/20/20 17:01 POC Glucose 157 H Hospitalist ROS - Review of Systems Cardiovascular: denies: chest pain, palpitations, orthopnea, paroxysmal noc. dyspnea, edema, light headedness, other Gastrointestinal: denies: nausea, vomiting, abdominal pain, diarrhea, constipation, melena, hematochezia, other Genitourinary: denies: dysuria, frequency, incontinence, hematuria, retention, other - Medication Medications: Active Medications Generic Name Dose Route Start Last Admin Trade Name Freq PRN Reason Stop Dose Admin Aspirin 81 mg 06/21/20 09:00 06/21/20 08:22 Aspirin 81 Mg Enteric Coated Tablet PO 81 mg DAILY BRIA Administration Heparin Sodium (Porcine) 5,000 units 06/21/20 09:00 06/21/20 16:02 Heparin 5,000 Units/Ml Vial SC 5,000 units TID BRIA Administration Hydralazine HCl 75 mg 06/18/20 21:00 06/21/20 16:02 Hydralazine 25 Mg Tab PO 75 mg TID BRIA Administration Milrinone Lactate/Dextrose 20 100 mls @ 13.574 mls/hr 06/20/20 14:30 06/21/20 01:19 mg/ Device IV 100 mls INF BRIA Administration Protocol 0.375 MCG/KG/MIN Sodium Chloride 10 ml 06/17/20 09:00 06/21/20 08:23 Flush - Normal Saline 10 Ml Syringe IVF 10 ml Q12HR BRIA Administration Trazodone HCl 100 mg 06/18/20 21:00 06/20/20 21:08 Trazodone Hcl 50 Mg Tab PO 100 mg HS BRIA Administration - Exam Neck: negative: supple, symmetric, no JVD, no thyromegaly, no lymphadenopathy, no carotid bruit, JVD Heart: negative: RRR, no murmur, no gallops, no rubs, normal peripheral pulses, irregular, diminshed peripheral pulses, murmur present, II/IV, III/IV Respiratory: negative: CTAB, no wheezes, no rales, no ronchi, normal chest expansion, no tachypnea, normal percussion, rales, rhonchi, tachypneic, wheezes Gastrointestinal: negative: soft, non-tender, non-distended, normal bowel sounds, no palpable masses, no hepatomegaly, no splenomegaly, no bruit, no guarding, no rigidity, tender to palpation, distended, diminished bowl sounds, voluntary guarding Extremities: 2+ LE edema Hosp A/P - Plan (1) CHF exacerbation Code(s): I50.9 - HEART FAILURE, UNSPECIFIED Status: Suspected Qualifiers: Heart failure type: unspecified Qualified Code(s): I50.9 - Heart failure, unspecified (2) Cardiomyopathy Code(s): I42.9 - CARDIOMYOPATHY, UNSPECIFIED Status: Suspected Qualifiers: Cardiomyopathy type: unspecified Qualified Code(s): I42.9 - Cardiomyopathy, unspecified (3) Psoriasis Code(s): L40.9 - PSORIASIS, UNSPECIFIED Status: Chronic (4) HTN (hypertension) Code(s): I10 - ESSENTIAL (PRIMARY) HYPERTENSION Status: Chronic Qualifiers: Hypertension type: essential hypertension Qualified Code(s): I10 - Essential (primary) hypertension (5) MAXINE (acute kidney injury) Code(s): N17.9 - ACUTE KIDNEY FAILURE, UNSPECIFIED Status: Acute (6) DM type 2 (diabetes mellitus, type 2) Status: Acute Qualifiers: Diabetes mellitus jail insulin use: without rodent exterminator use (7) Obesity (BMI 30-39.9) Code(s): E66.9 - OBESITY, UNSPECIFIED Status: Chronic - Plan gentle diuresis, watch for renal function cardiology consultation, echo pending has enormous weight gain of around 47lbs in 3-4 weeks (from 243 to 290lbs) continue aspirin marcella hose to lower extremities he has h/o using cocaine 15yrs back for 5 yrs duration, thc off and on, no other drugs hemostable has no insurance/non compliance, might need stress test once he has diuresed well 06/18 patient will undergo cardiac catheterization per outpatient admitting clerk notes. will increase his blood pressure medication. 06/19 pt has some scabs to his left lower ext but has no elevated wbc or fever. will monitor for now. bp meds adjusted will monitor. possible cath in am. pt is diuresing well will continue lasix for now. 06/20 will stop lasix since his creatinine has worsen a bit. pt going for cardiac cath in am. pt will need life vest on discharge. 06/21 patient's creatinine continues to improve. Possible cath in a.m. Will get ICD. We will continue milrinone for now
[2020-06-21] MEDS ORDERED: Communication Order-Pharmacy FS SCH (18:00)
--- NOTE | 2020-06-21 18:33 | PDOC.CPN ---
- Subjective Date: 06/21/20 Time: 13:00 - Objective Allergies/Adverse Reactions: Allergies Allergy/AdvReac Type Severity Reaction Status Date / Time codeine Allergy Mild Nausea Verified 06/17/20 06:24 Visit Medications: Current Medications Acetaminophen (Acetaminophen 500 Mg Tab) 1,000 mg PO Q6H PRN PRN Reason: Mild Pain (1-3) Aspirin (Aspirin 81 Mg Enteric Coated Tablet) 81 mg PO DAILY [facility] Last Admin: 06/21/20 08:22 Dose: 81 mg Documented by: Bisacodyl (Bisacodyl 5 Mg Tab) 10 mg PO DAILYPRN PRN PRN Reason: Constipation Carvedilol (Carvedilol 25 Mg Tab) 12.5 mg PO Q12HR [facility] Dextrose/Water (Dextrose 50% Abboject 50 Ml Syringe) 25 gm SLOW IVP PRN PRN PRN Reason: Hypoglycemia Furosemide (Furosemide 100 Mg/10 Ml Vial) 60 mg SLOW IVP BID [facility] Glipizide (Glipizide Xl 2.5 Mg Tablet) 2.5 [facility] Glucagon (Glucagon 1 Mg/Ml Vial) 1 mg IM PRN PRN PRN Reason: Hypoglycemia Heparin Sodium (Porcine) (Heparin 5,000 Units/Ml Vial) 5,000 units SC TID [facility] Last Admin: 06/21/20 16:02 Dose: 5,000 units Documented by: Hydralazine HCl (Hydralazine 20 Mg/Ml Vial) 10 mg SLOW IVP Q4H PRN PRN Reason: SBP > 180 and HR < 70 Hydralazine HCl (Hydralazine 25 Mg Tab) 75 mg PO TID [facility] Last Admin: 06/21/20 16:02 Dose: 75 mg Documented by: Dextrose/Water (D5w) 1,000 mls @ 0 mls/hr IV .Q0M PRN PRN Reason: Hypoglycemia Milrinone Lactate/Dextrose 20 (mg/ Device) 100 mls @ 13.574 mls/hr IV INF [facility]; Protocol Last Admin: 06/21/20 01:19 Dose: 100 mls Documented by: Sodium Chloride (Normal Saline 0.9%) 1,000 mls @ 100 mls/hr IV .Q10H [facility] Insulin Human Lispro (Humalog 300 Units/3 Ml Vial) 0 units SC .MODERATE SLIDING SC PRN PRN Reason: Moderate Correctional Scale Isosorbide Dinitrate (Isosorbide Dinitrate 5 Mg Tab) 10 mg PO Q12HR [facility] Labetalol HCl (Labetalol Hcl 100 Mg/20 Ml Vial) 20 mg SLOW IVP Q4H PRN PRN Reason: SBP > 180 and HR >/= 70 Miscellaneous Information (Communication Order-Pharmacy ) 0 each FS ONE BRIA Potassium Chloride (Potassium Chloride 20 Meq Tab) 20 meq PO DAILY BRIA Sodium Chloride (Flush - Normal Saline 10 Ml Syringe) 10 ml IVF Q12HR [facility] Last Admin: 06/21/20 08:23 Dose: 10 ml Documented by: Sodium Chloride (Flush - Normal Saline 10 Ml Syringe) 10 ml IVF PRN PRN PRN Reason: Saline Flush Trazodone HCl (Trazodone Hcl 50 Mg Tab) 100 mg PO HS BRI[facility] Last Admin: 06/20/20 21:08 Dose: 100 mg Documented by: Vital Signs & Weight: Vital Signs Temp Pulse Pulse Pulse Resp BP BP 06/21/20 16:30 98.0 F 76 18 06/21/20 12:23 97.9 F 61 18 06/21/20 11:35 66 64 126/72 108/57 L 06/21/20 08:18 98.2 F 66 18 BP Pulse Ox 06/21/20 16:30 132/80 98 06/21/20 12:23 121/70 98 06/21/20 11:35 06/21/20 08:18 155/82 H 99 Weight 268 lb 11.2 oz - Labs Result Diagrams: 06/21/20 03:05 06/21/20 03:04 Troponin/CKMB CK-MB (CK-2) 2.1 ng/mL (0-6.6) 06/17/20 01:26 Troponin I 0.040 ng/mL (< 0.028) H 06/17/20 08:07 - Assessment/Plan Assessment/Plan: 1. Acute on chronic systolic CHF. Patient being diuresed by Dr. Fry. Will continue to follow PRN. Once more euvolemic, plan for angio.
[2020-06-21] MEDS: Furosemide 100 MG/10 ML VIAL SLOW IVP SCH (20:57)
[2020-06-21] MEDS: Sodium Chloride 0.9% 1,000 ML IV SCH (20:57)
[2020-06-21] MEDS: traZODone HCl 50 MG TAB PO SCH (20:59)
[2020-06-21] MEDS: Isosorbide Dinitrate 5 MG TAB PO SCH (21:07)
[2020-06-22] MEDS: Milrinone Lactate/D5W 20 MG in Premix Bag 1 BAG IV SCH ×2 (03:06→17:07)
[2020-06-22 04:52] LABS: #Basophils 0.1 thou/uL (0.0-0.2); #Eosinphils 0.1 thou/uL (0.0-0.7); #Lymphocytes 2.1 thou/uL (1.20-3.40); #Monocytes 1.1 thou/uL (0.11-0.59); #Neutrophils 5.7 thou/uL (1.40-6.50); %Basophils 1.2 % (0.0-1.0); %Eosinophils 1.4 % (0.0-10.0); %Lymphocytes 23.4 % (21.0-51.0); %Monocytes 11.8 % (0.0-10.0); %Neutrophils 62.3 % (42.0-75.0); Hemoglobin 13.4 g/dL (14.0-18.0); Mean Corpuscular HGB CONC 30.9 g/dL (32.0-36.0); Mean Corpuscular Volume 96.9 fL (78.0-98.0); Mean Platelet Volume 7.2 fL (7.4-10.4); Platelet Count 280 thou/uL (130-400); RBC Distribution Width 13.5 % (11.5-14.5); Red Blood Cell (RBC) Count 4.46 mill/uL (4.70-6.10); White Blood Cell (WBC) Count 9.1 thou/uL (4.8-10.8)
[2020-06-22 05:15] LABS: Anion Gap 13 mmol/L (10-20); BUN (Urea Nitrogen) 22 mg/dL (8.9-20.6); Calc. Creatinine Clearance 127 mL/min (70-130); Calcium 8.1 mg/dL (7.8-10.44); Carbon Dioxide 27 mmol/L (22-29); Chloride 105 mmol/L (98-107); Glucose 99 mg/dL (70-105); Magnesium 1.8 mg/dL (1.6-2.6); Potassium 3.3 mmol/L (3.5-5.1); Sodium 142 mmol/L (136-145)
[2020-06-22] MEDS: hydrALAZINE 25 MG TAB PO SCH (06:34)
[2020-06-22] MEDS: Sodium Chloride 0.9% 1,000 ML IV SCH ×4 (06:34→17:06)
[2020-06-22] MEDS: Carvedilol 25 MG TAB PO SCH ×2 (06:35→21:14)
[2020-06-22] MEDS: Isosorbide Dinitrate 5 MG TAB PO SCH ×2 (06:35→21:12)
[2020-06-22] MEDS: Aspirin 81 mg Enteric Coated Tablet PO SCH (06:35)
[2020-06-22] MEDS ORDERED: Fentanyl 100 MCG/2 ML VIAL ONE (07:20)
[2020-06-22] MEDS ORDERED: Heparin 10,000 UNITS/ 10 ML VIAL ONE (07:20)
[2020-06-22] MEDS ORDERED: Nitroglycerin 100MG/250ML BOT 250 ML ONE (07:20)
[2020-06-22] MEDS ORDERED: Midazolam HCl 2 mg/2 ml Vial ONE (07:20)
[2020-06-22] MEDS ORDERED: Verapamil 5 MG/2 ML VIAL ONE (07:24)
[2020-06-22] MEDS ORDERED: Gentamicin 80 MG/2 ML VIAL ONE (07:26)
[2020-06-22] MEDS ORDERED: CEFAZOLIN 1 GM VIAL ONE (07:26)
[2020-06-22] MEDS ORDERED: Sodium Chloride 0.9% 200 ML IV PRN (08:23)
[2020-06-22] MEDS ORDERED: Acetaminophen/Codeine 30-300mg Tablet PO PRN (08:23)
[2020-06-22] MEDS ORDERED: Nitroglycerin 0.4 MG TAB (25 Tab Bottle) SL PRN (08:23)
[2020-06-22] MEDS: Heparin 5,000 UNITS/ML VIAL SC SCH ×3 (08:34→21:12)
[2020-06-22] MEDS: Furosemide 100 MG/10 ML VIAL SLOW IVP SCH (08:34)
[2020-06-22] MEDS ORDERED: Potassium Chloride 20 MEQ TAB PO SCH ×2 (09:00→09:30)
[2020-06-22] MEDS ORDERED: POTASSIUM CHLORIDE IVPB SCH (09:30)
[2020-06-22] MEDS ORDERED: SODIUM CHLORIDE 0.45% IVPB SCH (09:30)
--- NOTE | 2020-06-22 10:15 | PDOC.EP ---
- Subjective Date: 06/22/20 Time: 10:13 Interval History: S/P LHC demonstrating LAD stenosis. - Review of Systems Constitutional: denies: chills, fever, malaise, sweats, weakness, other Respiratory: denies: cough, dry, hemoptysis, pleuritic pain, shortness of breath, SOB with excertion, sputum, wheezing, other Cardiology: denies: chest pain, edema, heart racing, light headedness, paroxysmal noc. dyspnea, orthopnea, palpitations, passing out, pleuritic pain, pressure, swelling, other Gastrointestinal: denies: abdominal pain, constipation, diarrhea, hematochezia, melena, nausea, vomitting, other Musculoskeletal: denies: unstable gait, falls, neck pain, shoulder pain, arm pain, hand pain, leg pain, foot pain, other Neurological: denies: headache, vision changes, other - Objective Allergies/Adverse Reactions: Allergies Allergy/AdvReac Type Severity Reaction Status Date / Time codeine Allergy Mild Nausea Verified 06/17/20 06:24 Current Medications Acetaminophen (Acetaminophen 500 Mg Tab) 1,000 mg PO Q6H PRN PRN Reason: Mild Pain (1-3) Acetaminophen/Codeine Phosphate (Acetaminophen/Codeine 30-300mg Tablet) 1 tab PO Q4H PRN PRN Reason: Mild Pain (1-3) Aspirin (Aspirin 81 Mg Enteric Coated Tablet) 81 mg PO DAILY [facility] Last Admin: 06/22/20 06:35 Dose: 81 mg Documented by: Atorvastatin Calcium (Atorvastatin Calcium 40 Mg Tab) 80 mg PO [facility] Bisacodyl (Bisacodyl 5 Mg Tab) 10 mg PO DAILYPRN PRN PRN Reason: Constipation Carvedilol (Carvedilol 25 Mg Tab) 12.5 mg PO Q12HR [facility] Last Admin: 06/22/20 06:35 Dose: 12.5 mg Documented by: Dextrose/Water (Dextrose 50% Abboject 50 Ml Syringe) 25 gm SLOW IVP PRN PRN PRN Reason: Hypoglycemia Glucagon (Glucagon 1 Mg/Ml Vial) 1 mg IM PRN PRN PRN Reason: Hypoglycemia Heparin Sodium (Porcine) (Heparin 5,000 Units/Ml Vial) 5,000 units SC TID [facility] Last Admin: 06/22/20 08:34 Dose: 5,000 units Documented by: Hydralazine HCl (Hydralazine 20 Mg/Ml Vial) 10 mg SLOW IVP Q4H PRN PRN Reason: SBP > 180 and HR < 70 Hydralazine HCl (Hydralazine 25 Mg Tab) 50 mg PO HS BRIA Dextrose/Water (D5w) 1,000 mls @ 0 mls/hr IV .Q0M PRN PRN Reason: Hypoglycemia Milrinone Lactate/Dextrose 20 (mg/ Device) 100 mls @ 13.574 mls/hr IV INF BRIA; Protocol Last Admin: 06/22/20 03:06 Dose: 100 mls Documented by: Sodium Chloride (Normal Saline 0.9%) 1,000 mls @ 100 mls/hr IV .Q10H [facility] Last Admin: 06/22/20 06:34 Dose: 1,000 mls Documented by: Sodium Chloride (Normal Saline 0.9%) 200 mls @ 0 mls/hr IV ONE PRN PRN Reason: SBP < 90 Stop: 06/22/20 21:00 Sodium Chloride (Normal Saline 0.9%) 1,000 mls @ 125 mls/hr IV .Q8H [facility] Potassium Chloride 20 meq/ (Sodium Chloride) 260 mls @ 52 mls/hr IVPB NOW [facility] Stop: 06/22/20 14:29 Last Admin: 06/22/20 10:10 Dose: 260 mls Documented by: Isosorbide Dinitrate (Isosorbide Dinitrate 5 Mg Tab) 10 mg PO Q12HR [facility] Last Admin: 06/22/20 06:35 Dose: 10 mg Documented by: Labetalol HCl (Labetalol Hcl 100 Mg/20 Ml Vial) 20 mg SLOW IVP Q4H PRN PRN Reason: SBP > 180 and HR >/= 70 Miscellaneous Information (Communication Order-Pharmacy ) 0 each FS ONE [facility] Stop: 06/22/20 12:00 Nitroglycerin (Nitroglycerin 0.4 Mg Tab (25 Tab Bottle)) 0.4 mg SL Q5MIN PRN PRN Reason: Chest Pain Potassium Chloride (Potassium Chloride 20 Meq Tab) 40 meq PO BID [facility] Potassium Chloride (Potassium Chloride 20 Meq Tab) 40 meq PO NOW [facility] Stop: 06/22/20 12:00 Last Admin: 06/22/20 10:09 Dose: 40 meq Documented by: Sodium Chloride (Flush - Normal Saline 10 Ml Syringe) 10 ml IVF Q12HR [facility] Last Admin: 06/22/20 06:36 Dose: 10 ml Documented by: Sodium Chloride (Flush - Normal Saline 10 Ml Syringe) 10 ml IVF PRN PRN PRN Reason: Saline Flush Trazodone HCl (Trazodone Hcl 50 Mg Tab) 100 mg PO HS [facility] Last Admin: 06/21/20 20:59 Dose: 100 mg Documented by: Vital Signs & Weight: Vital Signs Temp Pulse Resp BP BP Pulse Ox 06/22/20 08:28 98.0 F 76 16 131/69 95 06/22/20 06:34 75 06/22/20 04:02 98.3 F 75 22 H 123/58 L 95 Weight 252 lb 3.2 oz I/O: I/O 06/21/20 06/22/20 06/23/20 06:59 06:59 06:59 Intake Total 1186 2000 Output Total 2450 4700 Balance -1264 -0680 - Physical Exam General: alert & oriented x3, appears well, no apparent distress HEENT: normocephaly Neck: no JVD/HJR Cardiology: no murmur Lungs: normal breath sounds Neurology: grossly intact Abdomen: unremarkable, soft, non-tender Extremities: warm Skin: groin sites stable Musculoskeletal: no pain - Chadsvasc Risk factors Congestive heart failure: 1 Hypertension: 1 Vascular disease: 1 Risk Score: 3 - Labs Result Diagrams: 06/22/20 04:12 06/22/20 04:12 - EKG Interpretation EKG Method: Telemetry EKG shows: Sinus rhythm, other (NS-VT) - Assessment/Plan Assessment/Plan: 1. Acute on chronic systolic congestive heart failure. a. A 2D echo from 06/17/2020 demonstrates LVEF of 10% to 15%, [id number] b. Symptoms are improving with diuresis and milrinone. left atrial enlargement, mild TR. 2. Left bundle-branch block. 3. History of syncopal spells. 4. Renal insufficiency with creatinine of 1.5. 5. Type 2 diabetes. 6. Hypertension. 7. Elevated BMI. 8. History of smoking. PLAN: His heart failure is likely pre-existing for at least a year and has been treated with adequate medical regimen. S/P left heart catheterization demonstrating significant 80% LAD coronary artery disease. He does need any revascularization. Will consider for a Bi-V ICD implantation if LVEF <=35% 90 day post revascularisation. Will monitor for Ventricular arrhythmia while in hospital. Standard GDMT for CHF. Consider Life vest on discharge. .
--- NOTE | 2020-06-22 11:57 | CON ---
DATE OF CONSULTATION: HISTORY OF PRESENT ILLNESS: This is an unfortunate 49-year-old gentleman with multiple cardiovascular risk factors and a history of congestive heart failure, although the level of dysfunction has not been previously documented. The patient presented with a 40-pound weight gain over the past 2 weeks and has undergone diuresis of about 30 pounds. His cardiac echo showed an ejection fraction of 10% to 15%. He has been placed on Milrinone, isosorbide, Coreg, and hydralazine to assist with his cardiac situation. He was taking metoprolol and lisinopril at home and was supposed to be taking metformin, although he states that his sugars are always okay, so he has not been taking his metformin. He was also on hydralazine. PAST SURGICAL HISTORY: Includes some sort of craniotomy for a cyst. SOCIAL HISTORY: The patient smokes half pack of cigarettes a day and typically smokes more than that in the past. 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 REVIEW OF SYSTEMS: The patient admits to chronic swelling in his legs at least for the past 2 years. He relates abdominal and more severe leg swelling in the past 2 weeks. He has shortness of breath at rest prior to admission and had inability to lie in the bed due to his breathing difficulties. PHYSICAL EXAMINATION: VITAL SIGNS: He currently is 5 feet 10 inches, 252 pounds, was about 280 to 290 on admission. LUNGS: He has clear lungs anteriorly. HEART: He has distant heart sounds and I do not appreciate any murmurs. ABDOMEN: Obese, nontender. EXTREMITIES: He has nonpitting edema in both lower legs. I am unable to palpate pedal pulses, perhaps related to the swelling or possibly that they are not present. LABORATORY DATA: Cardiac catheterization done today showed a high-grade LAD lesion at a septal takeoff as well as 60% stenosis in a proximal ramus branch, 60% in a distal circumflex, and a 50% to 60% in the mid right coronary artery. ASSESSMENT AND PLAN: At this time, the patient has severe left ventricular dysfunction and although he does have triple-vessel disease, his worse lesion is confined to his LAD. I do not think that coronary artery bypass grafting at this time would be in his best interest due to his poor EF and perhaps stenting of his LAD would be the most reasonable option in the short term. Whether the patient's ejection fraction can improve with intensive medical therapy is conjecture at this point, but he will have to do a better job and be more compliant with taking care of his medical problems in the future. Coronary artery bypass grafting in the future may be a consideration depending on left ventricular systolic function improvement. Job ID: [id number]
--- NOTE | 2020-06-22 12:28 | PRG ---
DATE OF SERVICE: 06/22/2020 SUBJECTIVE: Mr. Vega had an excellent day. He felt stronger and breathes easier with milrinone at 0.375 mcg/kg/minute. He was able to walk with physical therapy/cardiac rehabilitation. He noticed that he has increased strength and endurance. He walked considerably further than what he can do at home. He also responded very well to resumption of diuretics. He said that he urinated quite a bit throughout the day and he felt very good with it. He underwent coronary angiogram earlier this morning. He returned without any complications. It was done through the right wrist. REVIEW OF SYSTEMS: GENERAL: There is no fever, chills, productive cough. Please see HPI. HEENT: There is no change in vision, hearing, or swallowing. PULMONARY: He is breathing easy. CARDIAC: There is no report of chest pain, palpitations, or syncope. GI: There is no nausea, vomiting, diarrhea. : He is able to urinate well. MUSCULOSKELETAL: He has a chronic low back pain. INTEGUMENT: There is no new skin breakdown. NEUROLOGIC: There are no focal deficits or weaknesses. CURRENT MEDICATIONS: 1. Aspirin 81 mg daily. 2. Carvedilol 12.5 mg q.12 hours. 3. Hydralazine 75 mg q.8 hours. 4. Isosorbide dinitrate 10 mg q.12 hours. 5. Milrinone currently at 0.375 mcg/kg/minute. 6. Potassium chloride 20 mEq daily. 7. Trazodone 100 mg daily. OBJECTIVE: VITAL SIGNS: From this morning are heart rate about 75, systolic blood pressure between 120-130 and diastolic pressure between 58 and 69. GENERAL: He is alert and conversational, lying comfortably in bed after returning from coronary angiogram. HEENT: EOMI with benign oropharynx with some moist mucosa. NECK: JVP is not well evaluated today because he is lying flat. He was 14 cm yesterday, I suspect it would be lower today. PULMONARY: There is good air movement bilaterally. Clear to auscultation bilaterally. CARDIAC: Regular rate and rhythm with normal S1/S2. There is 2/6 holosystolic murmur at the left upper sternal border corresponding tricuspid regurgitation. There is also 2/6 holosystolic murmur at the apex corresponding to mitral regurgitation. There are no gallops and no rubs. ABDOMEN: Soft, nontender. Positive bowel sounds. EXTREMITIES: He has device on the right wrist. It is clamping down at the right radial artery. There are no signs of bleeding. It looks well. Lower extremity has pitting edema from feet to above his knees. His pitting edema has decreased significantly. LABORATORY DATA: His laboratory values today are sodium 142, potassium 3.3, chloride 105, bicarb 27, BUN has decreased down to 22 and creatinine down to 1.24. His 24-hour Is and Os are 2000 in and 4700 out, so he had large net negative output. His coronary angiogram from this morning was reviewed. He has greater than 90% critical stenosis in the left anterior descending right near the bifurcation with D1. He has significant stenosis in left circumflex artery. He also has significant stenosis in the mid right coronary artery. Thus he has a triple-vessel disease. ASSESSMENT: 49-year-old gentleman currently resides [place] [employer] Association stage C, [place] Heart Association class 3B heart failure with reduced ejection fraction. He has combined systolic and diastolic dysfunction. With new coronary angiogram showing severe triple-vessel disease, this is now an ischemic cardiomyopathy. With him being diabetic and low ejection fraction, the best course of action will be coronary artery bypass. In the meantime, we will need to keep his kidneys intact and optimize his volume and cardiac output status. We will also need to intensify his other treatment regimen. RECOMMENDATIONS: Please see the following for my recommendations. 1. Stop IV Lasix after the morning dose. We will need to allow his kidneys to recover from the dye load. 2. Agree with consulting Cardiothoracic Surgery. Having a coronary artery bypass is the best option for him. This can rescue his heart and return his heart back to normal function, so this is the best course of action. 3. Decrease hydralazine to 50 mg p.o. q.8 hours because he is dropping his blood pressure already with carvedilol. 4. His potassium is low. Please give him 40 mEq of potassium by mouth twice a day with slow down tomorrow. 5. Please give IV of 20 mEq potassium and 0.5 normal saline 250 mL. Please do this over 5 hours. This will help to replete potassium and give him some gentle hydration post catheterization. 6. Please continue Milrinone at 0.375 mcg/kg/minute. With oncoming surgery, this may need to be changed to dobutamine given the drop in his blood pressure. Please also provide magnesium oxide 400 mg b.i.d. and one dose of magnesium sulfate 2 g IV. He does have history of syncope, so he probably had some ventricular tachycardia in the past, so keeping his potassium above 4 and magnesium above 2 will be important. It has been a pleasure taking care of Mr. Adrian Vega. If you have any questions, please give me a call. The total visitation time is about 45 minutes. This included performing history and physical, explaining his situation to him and his mother. Job ID: [id number] MTDD
[2020-06-22] MEDS ORDERED: Magnesium Oxide 400 MG TAB PO SCH (13:00)
[2020-06-22] MEDS ORDERED: Sodium Chloride 0.9% 1,000 ML IV SCH (17:30)
[2020-06-22] MEDS ORDERED: Communication Order-Pharmacy FS SCH (17:30)
[2020-06-22] MEDS: Acetylcysteine 10% 100 MG/ML 30 ml Vial PO SCH (17:37)
--- NOTE | 2020-06-22 17:50 | PDOC.HOSPP ---
- Subjective Encounter Date: 06/22/20 Encounter Time: 10:20 Subjective: Patient up in bed no complaints. - Objective Vital Signs & Weight: Vital Signs (12 hours) Temp Pulse Resp BP BP Pulse Ox 06/22/20 15:35 98.0 F 76 18 101/51 L 96 06/22/20 11:20 98.0 F 71 16 136/71 95 06/22/20 08:28 98.0 F 76 16 131/69 95 06/22/20 06:34 75 Weight Weight 252 lb 3.2 oz I&O: 06/21/20 06/22/20 06/23/20 06:59 06:59 06:59 Intake Total 1186 2000 Output Total 5396 9457 Balance -4264 -1333 Result Diagrams: 06/22/20 04:12 06/22/20 04:12 Additional Labs: Accuchecks 06/22/20 06/22/20 06/22/20 16:38 10:46 05:40 POC Glucose 102 H 141 H 80 06/21/20 20:22 POC Glucose 150 H Hospitalist ROS - Review of Systems Cardiovascular: denies: chest pain, palpitations, orthopnea, paroxysmal noc. dyspnea, edema, light headedness, other Gastrointestinal: denies: nausea, vomiting, abdominal pain, diarrhea, constipation, melena, hematochezia, other Genitourinary: denies: dysuria, frequency, incontinence, hematuria, retention, other - Medication Medications: Active Medications Generic Name Dose Route Start Last Admin Trade Name Freq PRN Reason Stop Dose Admin Acetylcysteine 600 mg 06/22/20 17:00 06/22/20 17:37 Acetylcysteine 10% 100 Mg/Ml 30 Ml Vial PO 06/24/20 19:00 600 mg 0500,1700 BRIA Administration Aspirin 81 mg 06/21/20 09:00 06/22/20 06:35 Aspirin 81 Mg Enteric Coated Tablet PO 81 mg DAILY BRIA Administration Carvedilol 12.5 mg 06/22/20 09:00 06/22/20 06:35 Carvedilol 25 Mg Tab PO 12.5 mg Q12HR BRIA Administration Heparin Sodium (Porcine) 5,000 units 06/21/20 09:00 06/22/20 16:06 Heparin 5,000 Units/Ml Vial SC 5,000 units TID BRIA Administration Milrinone Lactate/Dextrose 20 100 mls @ 13.574 mls/hr 06/20/20 14:30 06/22/20 17:07 mg/ Device IV 100 mls INF BRIA Administration Protocol 0.375 MCG/KG/MIN Isosorbide Dinitrate 10 mg 06/21/20 21:00 06/22/20 06:35 Isosorbide Dinitrate 5 Mg Tab PO 10 mg Q12HR BRIA Administration Sodium Chloride 10 ml 06/17/20 09:00 06/22/20 06:36 Flush - Normal Saline 10 Ml Syringe IVF 10 ml Q12HR BRIA Administration Trazodone HCl 100 mg 06/18/20 21:00 06/21/20 20:59 Trazodone Hcl 50 Mg Tab PO 100 mg HS BRIA Administration - Exam Heart: negative: RRR, no murmur, no gallops, no rubs, normal peripheral pulses, irregular, diminshed peripheral pulses, murmur present, II/IV, III/IV Respiratory: negative: CTAB, no wheezes, no rales, no ronchi, normal chest expansion, no tachypnea, normal percussion, rales, rhonchi, tachypneic, wheezes Gastrointestinal: negative: soft, non-tender, non-distended, normal bowel soun ds, no palpable masses, no hepatomegaly, no splenomegaly, no bruit, no guarding, no rigidity, tender to palpation, distended, diminished bowl sounds, voluntary guarding Hosp A/P - Plan (1) CHF exacerbation Code(s): I50.9 - HEART FAILURE, UNSPECIFIED Status: Suspected Qualifiers: Heart failure type: unspecified Qualified Code(s): I50.9 - Heart failure, unspecified (2) Cardiomyopathy Code(s): I42.9 - CARDIOMYOPATHY, UNSPECIFIED Status: Suspected Qualifiers: Cardiomyopathy type: unspecified Qualified Code(s): I42.9 - Cardiomyopathy, unspecified (3) Psoriasis Code(s): L40.9 - PSORIASIS, UNSPECIFIED Status: Chronic (4) HTN (hypertension) Code(s): I10 - ESSENTIAL (PRIMARY) HYPERTENSION Status: Chronic Qualifiers: Hypertension type: essential hypertension Qualified Code(s): I10 - Essential (primary) hypertension (5) MAXINE (acute kidney injury) Code(s): N17.9 - ACUTE KIDNEY FAILURE, UNSPECIFIED Status: Acute (6) DM type 2 (diabetes mellitus, type 2) Status: Acute Qualifiers: Diabetes mellitus exterminator termite insulin use: without exterminator termite use (7) Obesity (BMI 30-39.9) Code(s): E66.9 - OBESITY, UNSPECIFIED Status: Chronic - Plan gentle diuresis, watch for renal function cardiology consultation, echo pending has enormous weight gain of around 47lbs in 3-4 weeks (from 243 to 290lbs) continue aspirin marcella hose to lower extremities he has h/o using cocaine 15yrs back for 5 yrs duration, thc off and on, no other drugs hemostable has no insurance/non compliance, might need stress test once he has diuresed well 06/18 patient will undergo cardiac catheterization 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 will increase his blood pressure medication. 06/19 pt has some scabs to his left lower ext but has no elevated wbc or fever. will monitor for now. bp meds adjusted will monitor. possible cath in am. pt is diuresing well will continue lasix for now. 06/20 will stop lasix since his creatinine has worsen a bit. pt going for cardiac cath in am. pt will need life vest on discharge. 06/21 patient's creatinine continues to improve. Possible cath in a.m. Will get ICD. We will continue milrinone for now 06/22 patient status post cardiac cath will require bypass however CV surgery declined bypass and recommended medical management with stent placement. Patient continues to be on the milrinone drip and diuretics. We will continue to monitor labs in a.m.
[2020-06-22] MEDS ORDERED: hydrALAZINE 25 MG TAB PO SCH (21:00)
[2020-06-22] MEDS: Magnesium Oxide 400 MG TAB PO SCH (21:12)
[2020-06-22] MEDS: Atorvastatin Calcium 40 MG TAB PO SCH (21:13)
[2020-06-22] MEDS: traZODone HCl 50 MG TAB PO SCH (21:13)
[2020-06-22] MEDS: Potassium Chloride 20 MEQ TAB PO SCH (21:14)
[2020-06-23] MEDS: Milrinone Lactate/D5W 20 MG in Premix Bag 1 BAG IV SCH ×3 (03:04→16:27)
[2020-06-23 04:33] LABS: #Basophils 0.1 thou/uL (0.0-0.2); #Eosinphils 0.2 thou/uL (0.0-0.7); #Lymphocytes 2.1 thou/uL (1.20-3.40); #Monocytes 0.9 thou/uL (0.11-0.59); #Neutrophils 4.2 thou/uL (1.40-6.50); %Basophils 1.5 % (0.0-1.0); %Eosinophils 3.1 % (0.0-10.0); %Lymphocytes 27.5 % (21.0-51.0); %Monocytes 12.3 % (0.0-10.0); %Neutrophils 55.6 % (42.0-75.0); Hemoglobin 13.5 g/dL (14.0-18.0); Mean Corpuscular HGB CONC 31.8 g/dL (32.0-36.0); Mean Corpuscular Hemoglobin 30.6 pg (27.0-31.0); Mean Corpuscular Volume 96.4 fL (78.0-98.0); Mean Platelet Volume 7.3 fL (7.4-10.4); Platelet Count 260 thou/uL (130-400); RBC Distribution Width 13.5 % (11.5-14.5); White Blood Cell (WBC) Count 7.5 thou/uL (4.8-10.8)
[2020-06-23 04:53] LABS: ALT (SGPT) 42 U/L (8-55); AST (SGOT) 32 U/L (5-34); Albumin 3.2 g/dL (3.5-5.0); Alkaline Phosphatase 96 U/L (40-110); Anion Gap 13 mmol/L (10-20); BUN (Urea Nitrogen) 18 mg/dL (8.9-20.6); Bilirubin, Total 1.2 mg/dL (0.2-1.2); Calc. Creatinine Clearance 110 mL/min (70-130); Calcium 8.2 mg/dL (7.8-10.44); Carbon Dioxide 25 mmol/L (22-29); Chloride 106 mmol/L (98-107); Globulin 2.6 g/dL (2.4-3.5); Glucose 118 mg/dL (70-105); Potassium 4.3 mmol/L (3.5-5.1); Protein, Total 5.8 g/dL (6.0-8.3); Sodium 140 mmol/L (136-145)
[2020-06-23] MEDS: Acetylcysteine 10% 100 MG/ML 30 ml Vial PO SCH ×2 (05:20→17:48)
[2020-06-23] MEDS: Isosorbide Dinitrate 5 MG TAB PO SCH ×2 (05:21→20:24)
[2020-06-23] MEDS: Magnesium Oxide 400 MG TAB PO SCH ×2 (05:21→20:24)
[2020-06-23] MEDS: Aspirin 81 mg Enteric Coated Tablet PO SCH (05:22)
[2020-06-23] MEDS: Carvedilol 25 MG TAB PO SCH (05:22)
[2020-06-23] MEDS: Potassium Chloride 20 MEQ TAB PO SCH (05:22)
[2020-06-23] MEDS: Sodium Chloride 0.9% 1,000 ML IV SCH ×2 (05:25→15:26)
[2020-06-23] MEDS ORDERED: Heparin 10,000 UNITS/ 10 ML VIAL ONE (07:10)
[2020-06-23] MEDS ORDERED: Nitroglycerin 100MG/250ML BOT 250 ML ONE (07:10)
[2020-06-23] MEDS ORDERED: Verapamil 5 MG/2 ML VIAL ONE (07:10)
[2020-06-23] MEDS ORDERED: Clopidogrel Bisulfate 300 MG TAB ONE (07:50)
[2020-06-23] MEDS ORDERED: Sodium Chloride 0.9% 1,000 ML IV SCH (08:00)
[2020-06-23] MEDS: Heparin 5,000 UNITS/ML VIAL SC SCH ×3 (08:22→20:25)
[2020-06-23] MEDS ORDERED: hydrALAZINE 25 MG TAB PO SCH (09:30)
[2020-06-23] MEDS ORDERED: Carvedilol 6.25 MG TAB PO SCH (09:30)
--- NOTE | 2020-06-23 09:52 | PDOC.EP ---
- Subjective Date: 06/23/20 Time: 09:49 - Review of Systems Constitutional: denies: chills, fever, malaise, sweats, weakness, other Respiratory: denies: cough, dry, hemoptysis, pleuritic pain, shortness of breath, SOB with excertion, sputum, wheezing, other Cardiology: denies: chest pain, edema, heart racing, light headedness, parox ysmal noc. dyspnea, orthopnea, palpitations, passing out, pleuritic pain, pressure, swelling, other Gastrointestinal: denies: abdominal pain, constipation, diarrhea, hematochezia, melena, nausea, vomitting, other Musculoskeletal: denies: unstable gait, falls, neck pain, shoulder pain, arm pain, hand pain, leg pain, foot pain, other Neurological: denies: headache, vision changes, other - Objective Allergies/Adverse Reactions: Allergies Allergy/AdvReac Type Severity Reaction Status Date / Time codeine Allergy Mild Nausea Verified 06/17/20 06:24 Current Medications Acetaminophen (Acetaminophen 500 Mg Tab) 1,000 mg PO Q6H PRN PRN Reason: Mild Pain (1-3) Acetaminophen/Codeine Phosphate (Acetaminophen/Codeine 30-300mg Tablet) 1 tab PO Q4H PRN PRN Reason: Mild Pain (1-3) Acetylcysteine (Acetylcysteine 10% 100 Mg/Ml 30 Ml Vial) 600 mg PO 0500,1700 [facility] Stop: 06/24/20 19:00 Last Admin: 06/23/20 05:20 Dose: 600 mg Documented by: Aspirin (Aspirin 81 Mg Enteric Coated Tablet) 81 mg PO DAILY [facility] Last Admin: 06/23/20 05:22 Dose: 81 mg Documented by: Atorvastatin Calcium (Atorvastatin Calcium 40 Mg Tab) 80 mg PO [facility] Last Admin: 06/22/20 21:13 Dose: 80 mg Documented by: Bisacodyl (Bisacodyl 5 Mg Tab) 10 mg PO DAILYPRN PRN PRN Reason: Constipation Carvedilol (Carvedilol 6.25 Mg Tab) 18.75 mg PO Q12HR [facility] Carvedilol (Carvedilol 6.25 Mg Tab) 6.25 mg PO NOW [facility] Stop: 06/23/20 12:00 Last Admin: 06/23/20 09:37 Dose: 6.25 mg Documented by: Clopidogrel Bisulfate (Clopidogrel Bisulfate 75 Mg Tab) 75 mg PO DAILY [facility] Dextrose/Water (Dextrose 50% Abboject 50 Ml Syringe) 25 gm SLOW IVP PRN PRN PRN Reason: Hypoglycemia Glucagon (Glucagon 1 Mg/Ml Vial) 1 mg IM PRN PRN PRN Reason: Hypoglycemia Heparin Sodium (Porcine) (Heparin 5,000 Units/Ml Vial) 5,000 units SC TID [facility] Last Admin: 06/23/20 08:22 Dose: Not Given Documented by: Hydralazine HCl (Hydralazine 20 Mg/Ml Vial) 10 mg SLOW IVP Q4H PRN PRN Reason: SBP > 180 and HR < 70 Hydralazine HCl (Hydralazine 25 Mg Tab) 25 mg PO Q8HR [facility] Hydralazine HCl (Hydralazine 25 Mg Tab) 25 mg PO NOW [facility] Stop: 06/23/20 12:00 Last Admin: 06/23/20 09:37 Dose: 25 mg Documented by: Dextrose/Water (D5w) 1,000 mls @ 0 mls/hr IV .Q0M PRN PRN Reason: Hypoglycemia Milrinone Lactate/Dextrose 20 (mg/ Device) 100 mls @ 13.574 mls/hr IV INF [facility]; Protocol Last Admin: 06/23/20 03:04 Dose: 100 mls Documented by: Sodium Chloride (Normal Saline 0.9%) 1,000 mls @ 100 mls/hr IV .Q10H [facility] Last Admin: 06/23/20 05:25 Dose: 1,000 mls Documented by: Sodium Chloride (Normal Saline 0.9%) 1,000 mls @ 100 mls/hr IV .Q10H [facility] Stop: 06/23/20 14:01 Last Admin: 06/23/20 08:22 Dose: Not Given Documented by: Isosorbide Dinitrate (Isosorbide Dinitrate 5 Mg Tab) 10 mg PO Q12HR [facility] Last Admin: 06/23/20 05:21 Dose: 10 mg Documented by: Labetalol HCl (Labetalol Hcl 100 Mg/20 Ml Vial) 20 mg SLOW IVP Q4H PRN PRN Reason: SBP > 180 and HR >/= 70 Magnesium Oxide (Magnesium Oxide 400 Mg Tab) 400 mg PO BID [facility] Last Admin: 06/23/20 05:21 Dose: 400 mg Documented by: Nitroglycerin (Nitroglycerin 0.4 Mg Tab (25 Tab Bottle)) 0.4 mg SL Q5MIN PRN PRN Reason: Chest Pain Sodium Chloride (Flush - Normal Saline 10 Ml Syringe) 10 ml IVF Q12HR [facility] Last Admin: 06/23/20 05:24 Dose: 10 ml Documented by: Sodium Chloride (Flush - Normal Saline 10 Ml Syringe) 10 ml IVF PRN PRN PRN Reason: Saline Flush Trazodone HCl (Trazodone Hcl 50 Mg Tab) 100 mg PO HS [facility] Last Admin: 06/22/20 21:13 Dose: 100 mg Documented by: Vital Signs & Weight: Vital Signs Temp Pulse Resp BP Pulse Ox 06/23/20 08:06 98.2 F 92 16 151/94 H 97 06/23/20 03:43 98.4 F 88 14 155/75 H 98 06/23/20 00:00 98.3 F 78 122/58 L Weight 253 lb 12.8 oz I/O: I/O 06/22/20 06/23/20 06/24/20 06:59 06:59 06:59 Intake Total 19990 Output Total 4700 1660 Balance -2700 70 - Physical Exam General: alert & oriented x3, appears well HEENT: PERRL. negative: jaundice Neck: no JVD/HJR Cardiology: regular rate and rhythm, no murmur. negative: gallop Lungs: clear to auscultation, no wheezes, no rales Neurology: grossly intact Abdomen: unremarkable, soft, non-tender Extremities: warm Skin: groin sites stable Musculoskeletal: no pain - Labs Result Diagrams: 06/23/20 03:50 06/23/20 03:50 - EKG Interpretation EKG Method: Telemetry EKG shows: Sinus rhythm - Assessment/Plan Assessment/Plan: 1. Acute on chronic systolic congestive heart failure. a. A 2D echo from 06/17/2020 demonstrates LVEF of 10% to 15%, [id number] b. Symptoms are improving with diuresis and milrinone. left atrial enlargement, mild TR. 2. Left bundle-branch block. 3. History of syncopal spells. 4. Renal insufficiency with creatinine of 1.5. 5. Type 2 diabetes. 6. Hypertension. 7. Elevated BMI. 8. History of smoking. PLAN: His heart failure is likely pre-existing for at least a year and has been treated with adequate medical regimen. S/P left heart catheterization demonstrating significant 80% LAD coronary artery disease. Stented 06/23/19. stable post procedure. Will consider for a Bi-V ICD implantation if LVEF <=35% 90 day post revascularisation. Will monitor for Ventricular arrhythmia while in hospital. Standard GDMT for CHF. Consider Life vest on discharge. .
--- NOTE | 2020-06-23 10:05 | PRG ---
DATE OF SERVICE: 06/23/2020 SUBJECTIVE: Mr. Adrian Vega had a good day. He did not have any symptoms post catheterization yesterday. He tolerated 2 L of IV fluids to clear his kidneys as much as possible of the dye load. Acetylcysteine 600 mg twice a day was also started to protect his kidneys. He did not have any chest pain, palpitations, syncope, or heart failure symptoms. He urinated quite a bit throughout the day, however, amount of urine collected was not shown. He underwent catheterization with PCI today. Dr. Grewal said a drug-eluting stent was placed in the left anterior descending artery. Both the first diagonal and also septal branch remained open. Afterwards, he feels good. He has some right arm discomfort at the site. There are no other complications. REVIEW OF SYSTEMS: GENERAL: There is no fever, chills, or productive cough. HEENT: There is no change in vision, hearing, or swallowing. PULMONARY: He is breathing easy. CARDIAC: Please see HPI. GI: There is no nausea, vomiting, or diarrhea. : He is able to urinate on his own. MUSCULOSKELETAL: There is no new muscular or joint pains, however, he does have chronic lower back pain. INTEGUMENT: There is no new skin breakdown. NEUROLOGIC: There are no focal deficits or weaknesses. CURRENT MEDICATIONS: 1. Acetylcysteine 600 mg p.o. b.i.d. for 2 more doses. 2. Aspirin 81 mg daily. 3. Atorvastatin 80 mg at bedtime. 4. Carvedilol 12.5 mg q.12 hours. 5. Hydralazine, for some reason only 50 mg at nighttime. 6. Isosorbide dinitrate 10 mg q.12 hours. 7. Magnesium oxide 400 mg b.i.d. 8. Milrinone currently at 0.375 mcg/kg/minute. 9. K-Dur 40 mEq daily. 10. Normal saline currently running at 100 mL/hour. 11. Trazodone 100 mg p.o. at bedtime. PHYSICAL EXAMINATION: Telemetry was reviewed. He is in sinus rhythm with a wide QRS. It is in a bundle branch block pattern. There are no concerning arrhythmias. VITAL SIGNS: Systolic pressure ranged between 122 to 151 and diastolic pressure ranged between 58 to 94. GENERAL: He is alert and conversational, able to lie nearly flat. He is comfortable and relaxed and is in no acute distress. HEENT: EOMI. Oropharynx is benign. NECK: His JVP is elevated around 13 cm. PULMONARY: There is good air movement. Clear to auscultation bilaterally. There are no signs of pulmonary edema. CARDIAC: Regular rate and rhythm with normal S1, S2. There is a soft 1/6 holosystolic murmur near the apex. There is also soft 1/6 holosystolic murmur at the left upper sternal border. He has murmurs of tricuspid regurgitation and mitral regurgitation. ABDOMEN: Soft, nontender. Positive bowel sounds. EXTREMITIES: His right radial site has a stopper device on it. It looks intact. There are no signs of bleeding or hematoma. His lower extremity has pitting edema from his feet to right at his knees. LABORATORY DATA: Today's laboratory values are white cell count 7.5, hemoglobin 13.5, platelets 260. His chemistry shows sodium 140, potassium 4.3, chloride 106, bicarb 25, BUN 18, creatinine 1.35, and glucose 118. His creatinine has crept up to 1.35 while BUN has dropped. He says he did encounter some renal dysfunction due to the dye load. It was reported that his dye load is only 50 mL today, so this is minimal. We will continue with IV fluid hydration to clear that as much as possible. ASSESSMENT: 49-year-old gentleman has heart failure with reduced ejection fraction with combined systolic and diastolic dysfunctions. He has a combination of ischemic and nonischemic cardiomyopathy. His LAD critical lesion has now been stented. The way that his myocardium has deteriorated with only single lesion at 90% suggests that he may not have a good chance of long-term full recovery. He is still currently volume overloaded, however, we will hold off on diuretics for today and restart tomorrow. We will transition him from hydralazine and isosorbide dinitrate to Entresto in the near future. We will also need to titrate off milrinone in the near future. Right now, we will aim to protect his kidney function as much as possible. It would probably take 4 days to wean him off milrinone. Please see following for my recommendations. RECOMMENDATIONS: 1. Change hydralazine to 25 mg p.o. q.8 hours, first dose now. Increase carvedilol to 18.75 p.o. q.12 hours. 2. Give one small dose of carvedilol 6.25 mg p.o. one dose now. Discontinue K- Dur for now, we will restart smaller dose tomorrow. 3. Ensure clopidogrel 75 mg p.o. daily is started tomorrow. He already received 300 mg loading dose already. However, Plavix needs to be started tomorrow. 4. Please continue milrinone at 0.375 mcg/kg/minute. 5. Please continue to supplement potassium to make sure his potassium is above 4 and magnesium is above 2. 6. He will need a LifeVest. It is required that he be observed for 40 days to 3 months. If his ejection fraction is still low at that point, then a [employer] device can be justified. 7. Continue to help the patient to apply for insurance. It has been a pleasure taking care of Mr. Adrian Vega. If you have any questions, please give me a call. The total visitation time today is 40 minutes. Job ID: [id number] MTDD
[2020-06-23] MEDS: hydrALAZINE 25 MG TAB PO SCH ×2 (14:18→20:25)
[2020-06-23] MEDS: Atorvastatin Calcium 40 MG TAB PO SCH (20:24)
[2020-06-23] MEDS: Carvedilol 6.25 MG TAB PO SCH (20:24)
[2020-06-23] MEDS: traZODone HCl 50 MG TAB PO SCH (20:24)
[2020-06-23] MEDS: Acetaminophen 500 MG TAB PO PRN (21:33)
[2020-06-24] MEDS: Milrinone Lactate/D5W 20 MG in Premix Bag 1 BAG IV SCH (00:31)
[2020-06-24] MEDS: Sodium Chloride 0.9% 1,000 ML IV SCH (03:02)
[2020-06-24] MEDS: Acetylcysteine 10% 100 MG/ML 30 ml Vial PO SCH ×2 (04:24→15:50)
[2020-06-24] MEDS: hydrALAZINE 25 MG TAB PO SCH ×3 (04:26→20:49)
[2020-06-24 05:19] LABS: #Basophils 0.1 thou/uL (0.0-0.2); #Eosinphils 0.3 thou/uL (0.0-0.7); #Lymphocytes 1.7 thou/uL (1.20-3.40); #Monocytes 0.9 thou/uL (0.11-0.59); #Neutrophils 3.6 thou/uL (1.40-6.50); %Basophils 1.7 % (0.0-1.0); %Eosinophils 3.8 % (0.0-10.0); %Lymphocytes 26.2 % (21.0-51.0); %Monocytes 13.8 % (0.0-10.0); %Neutrophils 54.5 % (42.0-75.0); Hemoglobin 13.3 g/dL (14.0-18.0); Mean Corpuscular Hemoglobin 30.8 pg (27.0-31.0); Mean Corpuscular Volume 96.4 fL (78.0-98.0); Mean Platelet Volume 7.4 fL (7.4-10.4); Platelet Count 243 thou/uL (130-400); RBC Distribution Width 13.4 % (11.5-14.5); Red Blood Cell (RBC) Count 4.32 mill/uL (4.70-6.10); White Blood Cell (WBC) Count 6.6 thou/uL (4.8-10.8)
[2020-06-24 05:47] LABS: ALT (SGPT) 38 U/L (8-55); AST (SGOT) 30 U/L (5-34); Albumin 3.1 g/dL (3.5-5.0); Alkaline Phosphatase 98 U/L (40-110); Anion Gap 12 mmol/L (10-20); BUN (Urea Nitrogen) 19 mg/dL (8.9-20.6); Bilirubin, Total 0.9 mg/dL (0.2-1.2); Calc. Creatinine Clearance 101 mL/min (70-130); Calcium 8.2 mg/dL (7.8-10.44); Carbon Dioxide 24 mmol/L (22-29); Chloride 108 mmol/L (98-107); Globulin 2.6 g/dL (2.4-3.5); Glucose 136 mg/dL (70-105); Magnesium 2.2 mg/dL (1.6-2.6); Potassium 4.5 mmol/L (3.5-5.1); Protein, Total 5.7 g/dL (6.0-8.3); Sodium 139 mmol/L (136-145)
[2020-06-24] MEDS: Carvedilol 6.25 MG TAB PO SCH (08:17)
[2020-06-24] MEDS: Magnesium Oxide 400 MG TAB PO SCH ×2 (08:17→20:46)
[2020-06-24] MEDS: Isosorbide Dinitrate 5 MG TAB PO SCH ×2 (08:17→20:47)
[2020-06-24] MEDS: Aspirin 81 mg Enteric Coated Tablet PO SCH (08:17)
[2020-06-24] MEDS: Heparin 5,000 UNITS/ML VIAL SC SCH ×3 (08:18→20:48)
[2020-06-24] MEDS: Clopidogrel Bisulfate 75 MG TAB PO SCH (08:18)
[2020-06-24] MEDS ORDERED: Furosemide 100 MG/10 ML VIAL SLOW IVP SCH ×2 (10:00→16:00)
--- NOTE | 2020-06-24 10:40 | PRG ---
DATE OF SERVICE: 06/24/2020 SUBJECTIVE: Mr. Vega had a good day. He said he has good energy level. He felt good. He says that is the best he has felt in a long time. He received continued IV fluids for the entire day and night. That caused quite a bit of edema. He can feel his hands and finger swelling up to. Other than that, there has no major issues. REVIEW OF SYSTEMS: GENERAL: There is no fever, chills, or productive cough. HEENT: There is no change in vision, hearing, or swallowing. PULMONARY: There are no severe shortness of breath. CARDIAC: There are no chest pain, palpitations, or syncope. GI: There is no nausea, vomiting, diarrhea. : He is urinating well on his own. MUSCULOSKELETAL: There is no new muscle, joint pains, however, he has chronic back pain. INTEGUMENT: There is no skin breakdown. NEUROLOGIC: There are no focal deficits or weaknesses. CURRENT MEDICATIONS: 1. Aspirin 81 mg daily. 2. Atorvastatin 80 mg at bedtime. 3. Carvedilol currently 18.75 mg q.12 hours. 4. Plavix 75 mg daily. 5. Hydralazine 25 mg q.8 hours. 6. Isosorbide dinitrate 10 mg q.12 hours. 7. Magnesium oxide 400 mg b.i.d. 8. Trazodone 100 mg p.o. at bedtime. His telemetry was reviewed, it shows sinus rhythm with left bundle-branch block pattern. There is occasional PVC. There are no concerning arrhythmia. PHYSICAL EXAMINATION: VITAL SIGNS: Heart rate 75, blood pressure 130/69. GENERAL: He is alert, conversational, sitting comfortably in a chair. HEENT: Show EOMI. Oropharynx is benign with moist mucosa. NECK: His JVP is approximately 13 cm or higher. PULMONARY: Good air movement bilateral, clear to auscultation bilaterally. CARDIAC: Regular rate and rhythm with normal S1/S2, there is 2/6 holosystolic murmur at the left sternal border. There is also 1/6 holosystolic murmur near the apex. ABDOMEN: Mildly distended, but soft, nontender. Positive bowel sounds. EXTREMITIES: He has a tense pitting edema from his feet to his thighs. He also has some pitting edema about his hands and arms. LABORATORY VALUES: Chemistry values are sodium 139, potassium 4.5, chloride 108, bicarb 24, BUN 19, creatinine 1.46. ASSESSMENT: 49-year-old gentleman has mixed ischemic and non-ischemic cardiomyopathy. He resides [place] Heart Association Stage C and [place] Heart Association class IIIb, heart failure with reduced ejection fraction. He has combined systolic and diastolic dysfunctions. Right now, he is very volume overloaded, so we will need to diurese him. We will also need to continue the milrinone to support diuresis. Afterwards, we will attempt to titrate off milrinone and switch to Entresto. The stent was placed in left anterior descending artery. Revascularization of the left anterior descending artery will help. However, the heart is not likely to revert back to normal. Thus, he will need long-term heart failure treatment and will need insurance for future advanced heart failure treatment options. RECOMMENDATIONS: 1. Continue milrinone 0.375 mcg/kg/minute. 2. Increase carvedilol to 25 mg p.o. q.12 hours. 3. Please provide Lasix 60 mg IV b.i.d. today only, to aggressively remove volume. 4. We will likely to titrate down Milrinone tomorrow and then will make the switch from Milrinone to Entresto. It has been a pleasure taking care of Mr. Vega. If any questions, please give me a call. The visitation time is 40 minutes. Job ID: [id number] MTDD
--- NOTE | 2020-06-24 16:32 | PDOC.EP ---
- Subjective Date: 06/24/20 Time: 16:28 Interval History: Feeling better. - Review of Systems Constitutional: denies: chills, fever, malaise, sweats, weakness, other Respiratory: denies: cough, dry, hemoptysis, pleuritic pain, shortness of breath, SOB with excertion, sputum, wheezing, other Cardiology: denies: chest pain, edema, heart racing, light headedness, orthopnea, paroxysmal noc. dyspnea, palpitations, passing out, pleuritic pain, pressure, swelling, other Gastrointestinal: denies: abdominal pain, constipation, diarrhea, hematochezia, melena, nausea, vomitting, other Musculoskeletal: denies: unstable gait, falls, neck pain, shoulder pain, arm pain, hand pain, leg pain, foot pain, other Neurological: denies: headache, vision changes, other - Objective Allergies/Adverse Reactions: Allergies Allergy/AdvReac Type Severity Reaction Status Date / Time codeine Allergy Mild Nausea Verified 06/17/20 06:24 Current Medications Acetaminophen (Acetaminophen 500 Mg Tab) 1,000 mg PO Q6H PRN PRN Reason: Mild Pain (1-3) Last Admin: 06/23/20 21:33 Dose: 1,000 mg Documented by: Acetylcysteine (Acetylcysteine 10% 100 Mg/Ml 30 Ml Vial) 600 mg PO 0500,1700 [facility] Stop: 06/24/20 19:00 Last Admin: 06/24/20 15:50 Dose: 600 mg Documented by: Aspirin (Aspirin 81 Mg Enteric Coated Tablet) 81 mg PO DAILY [facility] Last Admin: 06/24/20 08:17 Dose: 81 mg Documented by: Atorvastatin Calcium (Atorvastatin Calcium 40 Mg Tab) 80 mg PO [facility] Last Admin: 06/23/20 20:24 Dose: 80 mg Documented by: Bisacodyl (Bisacodyl 5 Mg Tab) 10 mg PO DAILYPRN PRN PRN Reason: Constipation Carvedilol (Carvedilol 25 Mg Tab) 25 mg PO Q12HR [facility] Clopidogrel Bisulfate (Clopidogrel Bisulfate 75 Mg Tab) 75 mg PO DAILY [facility] Last Admin: 06/24/20 08:18 Dose: 75 mg Documented by: Dextrose/Water (Dextrose 50% Abboject 50 Ml Syringe) 25 gm SLOW IVP PRN PRN PRN Reason: Hypoglycemia Furosemide (Furosemide 100 Mg/10 Ml Vial) 60 mg SLOW IVP 1600 [facility] Stop: 06/24/20 18:00 Last Admin: 06/24/20 15:50 Dose: 60 mg Documented by: Glucagon (Glucagon 1 Mg/Ml Vial) 1 mg IM PRN PRN PRN Reason: Hypoglycemia Heparin Sodium (Porcine) (Heparin 5,000 Units/Ml Vial) 5,000 units SC TID [facility] Last Admin: 06/24/20 14:46 Dose: 5,000 units Documented by: Hydralazine HCl (Hydralazine 20 Mg/Ml Vial) 10 mg SLOW IVP Q4H PRN PRN Reason: SBP > 180 and HR < 70 Hydralazine HCl (Hydralazine 25 Mg Tab) 25 mg PO Q8HR [facility] Last Admin: 06/24/20 14:46 Dose: 25 mg Documented by: Dextrose/Water (D5w) 1,000 mls @ 0 mls/hr IV .Q0M PRN PRN Reason: Hypoglycemia Milrinone Lactate/Dextrose 20 (mg/ Device) 100 mls @ 13.574 mls/hr IV INF [facility]; Protocol Last Admin: 06/24/20 00:31 Dose: 100 mls Documented by: Isosorbide Dinitrate (Isosorbide Dinitrate 5 Mg Tab) 10 mg PO Q12HR [facility] Last Admin: 06/24/20 08:17 Dose: 10 mg Documented by: Labetalol HCl (Labetalol Hcl 100 Mg/20 Ml Vial) 20 mg SLOW IVP Q4H PRN PRN Reason: SBP > 180 and HR >/= 70 Magnesium Oxide (Magnesium Oxide 400 Mg Tab) 400 mg PO BID [facility] Last Admin: 06/24/20 08:17 Dose: 400 mg Documented by: Nitroglycerin (Nitroglycerin 0.4 Mg Tab (25 Tab Bottle)) 0.4 mg SL Q5MIN PRN PRN Reason: Chest Pain Sodium Chloride (Flush - Normal Saline 10 Ml Syringe) 10 ml IVF Q12HR [facility] Last Admin: 06/24/20 08:18 Dose: 10 ml Documented by: Sodium Chloride (Flush - Normal Saline 10 Ml Syringe) 10 ml IVF PRN PRN PRN Reason: Saline Flush Trazodone HCl (Trazodone Hcl 50 Mg Tab) 100 mg PO HS [facility] Last Admin: 06/23/20 20:24 Dose: 100 mg Documented by: Vital Signs & Weight: Vital Signs Temp Pulse Pulse Pulse Resp BP BP 06/24/20 15:06 98.6 F 79 18 06/24/20 14:46 79 164/86 H 06/24/20 11:00 97.6 F 78 18 06/24/20 10:52 87 80 162/89 H 06/24/20 07:25 97.9 F 91 20 BP BP BP Pulse Ox 06/24/20 15:06 164/86 H 97 06/24/20 14:46 06/24/20 11:00 125/61 98 06/24/20 10:52 125/61 06/24/20 07:25 138/69 98 Weight 252 lb 9.6 oz I/O: I/O 06/23/20 06/24/20 06/25/20 06:59 06:59 06:59 Intake Total 1730 3220 Output Total 1660 1375 Balance 70 1845 - Physical Exam General: alert & oriented x3, appears well HEENT: normocephaly Neck: no JVD/HJR Cardiology: no murmur, regular rate. negative: audible murmur Lungs: normal breath sounds, no wheezes, no rales Neurology: grossly intact Abdomen: unremarkable, soft, non-tender Extremities: warm Musculoskeletal: no pain - Labs Result Diagrams: 06/24/20 04:21 06/24/20 04:21 - EKG Interpretation EKG Method: Telemetry EKG shows: Sinus rhythm, other (LBBB) - Assessment/Plan Assessment/Plan: 1. Acute on chronic systolic congestive heart failure. a. A 2D echo from 06/17/2020 demonstrates LVEF of 10% to 15%, [id number] b. Symptoms are improving with diuresis and milrinone. left atrial enlargement, mild TR. 2. Left bundle-branch block. 3. History of syncopal spells. 4. Renal insufficiency with creatinine of 1.5. 5. Type 2 diabetes. 6. Hypertension. 7. Elevated BMI. 8. History of smoking. PLAN: His heart failure is likely pre-existing for at least a year and has been treated with adequate medical regimen. S/P left heart catheterization demonstrating significant 80% LAD coronary artery disease. Stented 06/23/19. stable post procedure. Will consider for a Bi-V ICD implantation if LVEF <=35% 90 day post revascularization. Will monitor for Ventricular arrhythmia while in hospital. Standard GDMT for CHF. . . 06/24/19. Stable course. No new arrhtythmia. Consider Life vest on discharge. cheng sign off. Plan to see him back after 3 months follow up ECHO in office.
--- NOTE | 2020-06-24 17:29 | PDOC.HOSPP ---
- Subjective Encounter Date: 06/24/20 Encounter Time: 10:00 Subjective: Patient up in chair no complaints. - Objective Vital Signs & Weight: Vital Signs (12 hours) Temp Pulse Pulse Pulse Resp BP BP 06/24/20 15:06 98.6 F 79 18 06/24/20 14:46 79 164/86 H 06/24/20 11:00 97.6 F 78 18 06/24/20 10:52 87 80 162/89 H 06/24/20 07:25 97.9 F 91 20 BP BP BP Pulse Ox 06/24/20 15:06 164/86 H 97 06/24/20 14:46 06/24/20 11:00 125/61 98 06/24/20 10:52 125/61 06/24/20 07:25 138/69 98 Weight Weight 252 lb 9.6 oz I&O: 06/23/20 06/24/20 06/25/20 06:59 06:59 06:59 Intake Total 1730 3220 Output Total 1660 1375 Balance 70 1845 Result Diagrams: 06/24/20 04:21 06/24/20 04:21 Additional Labs: Accuchecks 06/24/20 06/24/20 06/23/20 10:54 06:27 20:52 POC Glucose 145 H 113 H 146 H Hospitalist ROS - Review of Systems Respiratory: denies: cough, dry, shortness of breath, hemoptysis, SOB with excertion, pleuritic pain, sputum, wheezing, other Cardiovascular: denies: chest pain, palpitations, orthopnea, paroxysmal noc. dyspnea, edema, light headedness, other Gastrointestinal: denies: nausea, vomiting, abdominal pain, diarrhea, constipation, melena, hematochezia, other - Medication Medications: Active Medications Generic Name Dose Route Start Last Admin Trade Name Freq PRN Reason Stop Dose Admin Acetaminophen 1,000 mg 06/17/20 03:55 06/23/20 21:33 Acetaminophen 500 Mg Tab PO 1,000 mg Q6H PRN Administration Mild Pain (1-3) Acetylcysteine 600 mg 06/22/20 17:00 06/24/20 15:50 Acetylcysteine 10% 100 Mg/Ml 30 Ml Vial PO 06/24/20 19:00 600 mg 0500,1700 BRIA Administration Aspirin 81 mg 06/21/20 09:00 06/24/20 08:17 Aspirin 81 Mg Enteric Coated Tablet PO 81 mg DAILY BRIA Administration Atorvastatin Calcium 80 mg 06/22/20 21:00 06/23/20 20:24 Atorvastatin Calcium 40 Mg Tab PO 80 mg HS BRIA Administration Clopidogrel Bisulfate 75 mg 06/24/20 09:00 06/24/20 08:18 Clopidogrel Bisulfate 75 Mg Tab PO 75 mg DAILY BRIA Administration Furosemide 60 mg 06/24/20 16:00 06/24/20 15:50 Furosemide 100 Mg/10 Ml Vial SLOW IVP 06/24/20 18:00 60 mg 1600 BRIA Administration Heparin Sodium (Porcine) 5,000 units 06/21/20 09:00 06/24/20 14:46 Heparin 5,000 Units/Ml Vial SC 5,000 units TID BRIA Administration Hydralazine HCl 25 mg 06/23/20 14:00 06/24/20 14:46 Hydralazine 25 Mg Tab PO 25 mg Q8HR BRIA Administration Milrinone Lactate/Dextrose 20 100 mls @ 13.574 mls/hr 06/20/20 14:30 06/24/20 00:31 mg/ Device IV 100 mls INF BRIA Administration Protocol 0.375 MCG/KG/MIN Isosorbide Dinitrate 10 mg 06/21/20 21:00 06/24/20 08:17 Isosorbide Dinitrate 5 Mg Tab PO 10 mg Q12HR BRIA Administration Magnesium Oxide 400 mg 06/22/20 21:00 06/24/20 08:17 Magnesium Oxide 400 Mg Tab PO 400 mg BID BRIA Administration Sodium Chloride 10 ml 06/17/20 09:00 06/24/20 08:18 Flush - Normal Saline 10 Ml Syringe IVF 10 ml Q12HR BRIA Administration Trazodone HCl 100 mg 06/18/20 21:00 06/23/20 20:24 Trazodone Hcl 50 Mg Tab PO 100 mg HS BRIA Administration - Exam Neck: negative: supple, symmetric, no JVD, no thyromegaly, no lymphadenopathy, no carotid bruit, JVD Heart: negative: RRR, no murmur, no gallops, no rubs, normal peripheral pulses, irregular, diminshed peripheral pulses, murmur present, II/IV, III/IV Respiratory: negative: CTAB, no wheezes, no rales, no ronchi, normal chest expansion, no tachypnea, normal percussion, rales, rhonchi, tachypneic, wheezes Gastrointestinal: negative: soft, non-tender, non-distended, normal bowel sounds, no palpable masses, no hepatomegaly, no splenomegaly, no bruit, no guarding, no rigidity, tender to palpation, distended, diminished bowl sounds, voluntary guarding Hosp A/P - Plan (1) CHF exacerbation Code(s): I50.9 - HEART FAILURE, UNSPECIFIED Status: Suspected Qualifiers: Heart failure type: unspecified Qualified Code(s): I50.9 - Heart failure, unspecified (2) Cardiomyopathy Code(s): I42.9 - CARDIOMYOPATHY, UNSPECIFIED Status: Suspected Qualifiers: Cardiomyopathy type: unspecified Qualified Code(s): I42.9 - Cardiomyopathy, unspecified (3) Psoriasis Code(s): L40.9 - PSORIASIS, UNSPECIFIED Status: Chronic (4) HTN (hypertension) Code(s): I10 - ESSENTIAL (PRIMARY) HYPERTENSION Status: Chronic Qualifiers: Hypertension type: essential hypertension Qualified Code(s): I10 - Essential (primary) hypertension (5) MAXINE (acute kidney injury) Code(s): N17.9 - ACUTE KIDNEY FAILURE, UNSPECIFIED Status: Acute (6) DM type 2 (diabetes mellitus, type 2) Status: Acute Qualifiers: Diabetes mellitus senior living insulin use: without lobsterman use (7) Obesity (BMI 30-39.9) Code(s): E66.9 - OBESITY, UNSPECIFIED Status: Chronic - Plan gentle diuresis, watch for renal function cardiology consultation, echo pending has enormous weight gain of around 47lbs in 3-4 weeks (from 243 to 290lbs) continue aspirin marcella hose to lower extremities he has h/o using cocaine 15yrs back for 5 yrs duration, thc off and on, no other drugs hemostable has no insurance/non compliance, might need stress test once he has diuresed well 1 patient will undergo cardiac catheterization per drafter plumbing notes. will increase his blood pressure medication. 06/19 pt has some scabs to his left lower ext but has no elevated wbc or fever. will monitor for now. bp meds adjusted will monitor. possible cath in am. pt is diuresing well will continue lasix for now. 06/20 will stop lasix since his creatinine has worsen a bit. pt going for cardiac cath in am. pt will need life vest on discharge. 06/21 patient's creatinine continues to improve. Possible cath in a.m. Will get ICD. We will continue milrinone for now 06/22 patient status post cardiac cath will require bypass however CV surgery declined bypass and recommended medical management with stent placement. Patient continues to be on the milrinone drip and diuretics. We will continue to monitor labs in a.m. 06/23 that is post LAD stent. Patient will be discharged on LifeVest. We will continue milrinone. Status post IV fluids for his kidneys. We will continue to monitor. 06/24 diuretics held yesterday. Patient continues to be on milrinone. Creatinine worsened today.
[2020-06-24] MEDS: Carvedilol 25 MG TAB PO SCH (20:47)
[2020-06-24] MEDS: Atorvastatin Calcium 40 MG TAB PO SCH (20:47)
[2020-06-24] MEDS: traZODone HCl 50 MG TAB PO SCH (20:47)
[2020-06-25] MEDS: Milrinone Lactate/D5W 20 MG in Premix Bag 1 BAG IV SCH ×3 (00:11→20:53)
[2020-06-25 04:40] LABS: #Basophils 0.1 thou/uL (0.0-0.2); #Eosinphils 0.3 thou/uL (0.0-0.7); #Lymphocytes 1.9 thou/uL (1.20-3.40); #Monocytes 0.8 thou/uL (0.11-0.59); #Neutrophils 5.3 thou/uL (1.40-6.50); %Basophils 0.9 % (0.0-1.0); %Eosinophils 3.2 % (0.0-10.0); %Lymphocytes 22.3 % (21.0-51.0); %Monocytes 9.7 % (0.0-10.0); Hemoglobin 13.9 g/dL (14.0-18.0); Mean Corpuscular HGB CONC 32.2 g/dL (32.0-36.0); Mean Corpuscular Hemoglobin 30.9 pg (27.0-31.0); Mean Platelet Volume 7.2 fL (7.4-10.4); Platelet Count 268 thou/uL (130-400); RBC Distribution Width 13.4 % (11.5-14.5); Red Blood Cell (RBC) Count 4.48 mill/uL (4.70-6.10); White Blood Cell (WBC) Count 8.3 thou/uL (4.8-10.8)
[2020-06-25 04:59] LABS: Anion Gap 14 mmol/L (10-20); BUN (Urea Nitrogen) 16 mg/dL (8.9-20.6); Calc. Creatinine Clearance 112 mL/min (70-130); Calcium 8.7 mg/dL (7.8-10.44); Carbon Dioxide 25 mmol/L (22-29); Chloride 103 mmol/L (98-107); Glucose 114 mg/dL (70-105); Sodium 138 mmol/L (136-145)
[2020-06-25] MEDS: hydrALAZINE 25 MG TAB PO SCH (05:18)
[2020-06-25] MEDS: Acetaminophen 500 MG TAB PO PRN ×2 (05:28→10:31)
[2020-06-25] MEDS: Magnesium Oxide 400 MG TAB PO SCH ×2 (08:07→20:54)
[2020-06-25] MEDS: Aspirin 81 mg Enteric Coated Tablet PO SCH (08:07)
[2020-06-25] MEDS: Clopidogrel Bisulfate 75 MG TAB PO SCH (08:07)
[2020-06-25] MEDS: Isosorbide Dinitrate 5 MG TAB PO SCH (08:07)
[2020-06-25] MEDS: Carvedilol 25 MG TAB PO SCH ×2 (08:07→20:55)
[2020-06-25] MEDS: Heparin 5,000 UNITS/ML VIAL SC SCH ×3 (08:07→20:55)
[2020-06-25] MEDS ORDERED: Bumetanide 1 MG TAB PO SCH (10:30)
--- NOTE | 2020-06-25 10:55 | PRG ---
DATE OF SERVICE: 06/25/2020 SUBJECTIVE: Mr. Adrian Vega had a good day. He felt good. He was able to walk three times quite a bit of distance. He is much better than what he did at home. He had significant amount of diuresis yesterday. He said he was going to the bathroom almost over 10 minutes. He felt a lot of fluid coming off him yesterday and today. REVIEW OF SYSTEMS: GENERAL: There is no fever, chills, or productive cough. HEENT: There is no change in vision, hearing, or swallowing. PULMONARY: He is breathing easier. CARDIAC: There is no chest pain, palpitations, or syncope. GI: There is no nausea, vomiting, or diarrhea. MUSCULOSKELETAL: He has chronic lower back pain. INTEGUMENT: There is no new skin breakdown. NEUROLOGIC: There are no focal deficits or weaknesses. CURRENT MEDICATIONS: 1. Aspirin 81 mg daily. 2. Atorvastatin 80 mg at bedtime. 3. Carvedilol 25 mg q.12 hours. 4. Hydralazine 25 mg q.8 hours. 5. Isosorbide dinitrate 10 mg q.12 hours. 6. Magnesium oxide 400 mg b.i.d. 7. Milrinone currently at 0.375 mcg/kg/minute. 8. Trazodone 100 mg daily. His telemetry was reviewed. He is in sinus rhythm. There are no concerning arrhythmia. However, he does have wide QRS complex and left bundle-branch block pattern. He was hypertensive, but when I was in the room, his heart rate was 75, blood pressure 137/70, so he was not so hypertensive once in room. His In's and Out's are 2200 in and 3150 out. The 3150 out is underestimate. Not all urine output was obtained per correction. His weight is recorded at 243 pounds today. This is the lowest weight since admission. PHYSICAL EXAMINATION: GENERAL: Alert, conversational, relaxed, not short of breath. HEENT: EOMI with a benign oropharynx. NECK: His JVP is about 10 cm with positive hepatojugular reflux, this is much lower JVP than yesterday. PULMONARY: Good air movement bilaterally. Clear to auscultation bilaterally. HEART: Sounds are distant. Normal S1, S2. There is a 1/6 holosystolic murmur near the apex. There are no gallops, no rubs. ABDOMEN: Soft, nontender. Positive bowel sounds. EXTREMITIES: Lower extremity still has pitting edema from feet to just below the knees. However, the pitting edema around his thighs and hips has now gone. This is a significant decrease from yesterday. LABORATORY DATA: This morning chemistry consists of sodium 138, potassium 4, chloride 103, bicarb is 54, BUN is 16, creatinine 1.32. So he does have improving BUN and creatinine with diuresis. By lowering his CVP, actually we increased his renal function. ASSESSMENT: 49-year-old gentleman resides in [place] Heart Association stage C, [place] Heart Association class III heart failure with reduced ejection fraction. He has both systolic and diastolic dysfunctions heart failure. This is a combination of ischemia and nonischemic cardiomyopathy. He did receive revascularization of LAD. However, long-term castellon, I do not expect his heart to return to normal. He is still volume overloaded, but less so. So we can decrease the diuresis. At this point, he is safe enough to start Entresto. It is ideal to start SGLT2 inhibitor. Unfortunately, he cannot afford that as an outpatient. For now, I will be working on decreasing the diuretic, start Entresto and starting weaning off process of milrinone. Please see the following for my recommendations. RECOMMENDATIONS: 1. Discontinue IV Lasix. 2. Replace IV Lasix with Bumex 1 mg p.o. b.i.d., first dose now. 3. Start Entresto 24/26 mg combination b.i.d., first dose now. 4. Discontinue hydralazine. 5. Discontinue isosorbide dinitrate. 6. Decrease milrinone to 0.25 mcg/kg/minute. 7. Place fluid restriction at 1 L per day. It has been a pleasure taking care of Mr. Vega. If any questions, please give me a call. The total visitation time is 40 minutes today. Job ID: [id number] MTDD
[2020-06-25] MEDS: Bumetanide 1 MG TAB PO SCH (15:29)
[2020-06-25] MEDS ORDERED: Cyclobenzaprine 10 MG TAB PO PRN (17:52)
--- NOTE | 2020-06-25 17:52 | PDOC.HOSPP ---
- Subjective Encounter Date: 06/25/20 Encounter Time: 12:30 Subjective: Patient up in bed no complaint - Objective Vital Signs & Weight: Vital Signs (12 hours) Temp Pulse Pulse Pulse Resp BP BP 06/25/20 15:33 98.3 F 71 16 06/25/20 12:52 71 71 145/98 H 125/63 06/25/20 11:30 98.3 F 76 18 06/25/20 07:08 98.1 F 85 18 BP BP Pulse Ox 06/25/20 15:33 133/62 100 06/25/20 12:52 06/25/20 11:30 145/98 H 97 06/25/20 07:08 170/72 H 97 Weight Weight 243 lb 4.8 oz I&O: 06/24/20 06/25/20 06/26/20 06:59 06:59 06:59 Intake Total 3220 2200 Output Total 1375 3150 Balance 1845 -950 Result Diagrams: 06/25/20 04:14 06/25/20 04:14 Additional Labs: Accuchecks 06/25/20 06/25/20 06/25/20 16:59 11:15 04:59 POC Glucose 114 H 111 H 119 H 06/24/20 20:27 POC Glucose 159 H Hospitalist ROS - Review of Systems Cardiovascular: denies: chest pain, palpitations, orthopnea, paroxysmal noc. dyspnea, edema, light headedness, other Gastrointestinal: denies: nausea, vomiting, abdominal pain, diarrhea, constipation, melena, hematochezia, other Genitourinary: denies: dysuria, frequency, incontinence, hematuria, retention, other - Medication Medications: Active Medications Generic Name Dose Route Start Last Admin Trade Name Freq PRN Reason Stop Dose Admin Acetaminophen 1,000 mg 06/17/20 03:55 06/25/20 10:31 Acetaminophen 500 Mg Tab PO 1,000 mg Q6H PRN Administration Mild Pain (1-3) Aspirin 81 mg 06/21/20 09:00 06/25/20 08:07 Aspirin 81 Mg Enteric Coated Tablet PO 81 mg DAILY BRIA Administration Atorvastatin Calcium 80 mg 06/22/20 21:00 06/24/20 20:47 Atorvastatin Calcium 40 Mg Tab PO 80 mg HS BRIA Administration Bumetanide 1 mg 06/25/20 16:30 06/25/20 15:29 Bumetanide 1 Mg Tab PO 1 mg BID-AC BRIA Administration Carvedilol 25 mg 06/24/20 21:00 06/25/20 08:07 Carvedilol 25 Mg Tab PO 25 mg Q12HR BRIA Administration Clopidogrel Bisulfate 75 mg 06/24/20 09:00 06/25/20 08:07 Clopidogrel Bisulfate 75 Mg Tab PO 75 mg DAILY BRIA Administration Heparin Sodium (Porcine) 5,000 units 06/21/20 09:00 06/25/20 15:28 Heparin 5,000 Units/Ml Vial SC 5,000 units TID BRIA Administration Milrinone Lactate/Dextrose 20 100 mls @ 9.049 mls/hr 06/20/20 14:30 06/25/20 08:12 mg/ Device IV 100 mls INF BRIA Administration Protocol 0.25 MCG/KG/MIN Magnesium Oxide 400 mg 06/22/20 21:00 06/25/20 08:07 Magnesium Oxide 400 Mg Tab PO 400 mg BID BRIA Administration Sodium Chloride 10 ml 06/17/20 09:00 06/25/20 08:20 Flush - Normal Saline 10 Ml Syringe IVF Not Given Q12HR BRIA Trazodone HCl 100 mg 06/18/20 21:00 06/24/20 20:47 Trazodone Hcl 50 Mg Tab PO 100 mg HS BRIA Administration - Exam Neck: negative: supple, symmetric, no JVD, no thyromegaly, no lymphadenopathy, no carotid bruit, JVD Heart: negative: RRR, no murmur, no gallops, no rubs, normal peripheral pulses, irregular, diminshed peripheral pulses, murmur present, II/IV, III/IV Respiratory: negative: CTAB, no wheezes, no rales, no ronchi, normal chest expansion, no tachypnea, normal percussion, rales, rhonchi, tachypneic, wheezes Gastrointestinal: negative: soft, non-tender, non-distended, normal bowel sounds, no palpable masses, no hepatomegaly, no splenomegaly, no bruit, no guarding, no rigidity, tender to palpation, distended, diminished bowl sounds, voluntary guarding Hosp A/P - Plan (1) CHF exacerbation Code(s): I50.9 - HEART FAILURE, UNSPECIFIED Status: Suspected Qualifiers: Heart failure type: unspecified Qualified Code(s): I50.9 - Heart failure, unspecified (2) Cardiomyopathy Code(s): I42.9 - CARDIOMYOPATHY, UNSPECIFIED Status: Suspected Qualifiers: Cardiomyopathy type: unspecified Qualified Code(s): I42.9 - Cardiomyopathy, unspecified (3) Psoriasis Code(s): L40.9 - PSORIASIS, UNSPECIFIED Status: Chronic (4) HTN (hypertension) Code(s): I10 - ESSENTIAL (PRIMARY) HYPERTENSION Status: Chronic Qualifiers: Hypertension type: essential hypertension Qualified Code(s): I10 - Essential (primary) hypertension (5) MAXINE (acute kidney injury) Code(s): N17.9 - ACUTE KIDNEY FAILURE, UNSPECIFIED Status: Acute (6) DM type 2 (diabetes mellitus, type 2) Status: Acute Qualifiers: Diabetes mellitus intermediate frame tender insulin use: without residential use (7) Obesity (BMI 30-39.9) Code(s): E66.9 - OBESITY, UNSPECIFIED Status: Chronic - Plan gentle diuresis, watch for renal function cardiology consultation, echo pending has enormous weight gain of around 47lbs in 3-4 weeks (from 243 to 290lbs) continue aspirin marcella hose to lower extremities he has h/o using cocaine 15yrs back for 5 yrs duration, thc off and on, no other drugs hemostable has no insurance/non compliance, might need stress test once he has diuresed well 1 patient will undergo cardiac catheterization per bung dropper notes. will increase his blood pressure medication. 06/19 pt has some scabs to his left lower ext but has no elevated wbc or fever. will monitor for now. bp meds adjusted will monitor. possible cath in am. pt is diuresing well will continue lasix for now. 06/20 will stop lasix since his creatinine has worsen a bit. pt going for cardiac cath in am. pt will need life vest on discharge. 06/21 patient's creatinine continues to improve. Possible cath in a.m. Will get ICD. We will continue milrinone for now 06/22 patient status post cardiac cath will require bypass however CV surgery declined bypass and recommended medical management with stent placement. Pat ient continues to be on the milrinone drip and diuretics. We will continue to monitor labs in a.m. 06/23 that is post LAD stent. Patient will be discharged on LifeVest. We will continue milrinone. Status post IV fluids for his kidneys. We will continue to monitor. 06/24 diuretics held yesterday. Patient continues to be on milrinone. Creatinine worsened today. 06/25 patient started on Bumex today. Renal function improved slowly. Patient was started on Entresto by heart failure.
[2020-06-25] MEDS: Atorvastatin Calcium 40 MG TAB PO SCH (20:54)
[2020-06-25] MEDS: traZODone HCl 50 MG TAB PO SCH (20:55)
[2020-06-26 04:42] LABS: #Basophils 0.1 thou/uL (0.0-0.2); #Eosinphils 0.2 thou/uL (0.0-0.7); #Lymphocytes 2.2 thou/uL (1.20-3.40); #Monocytes 0.7 thou/uL (0.11-0.59); #Neutrophils 3.4 thou/uL (1.40-6.50); %Basophils 1.7 % (0.0-1.0); %Eosinophils 3.4 % (0.0-10.0); %Lymphocytes 33.3 % (21.0-51.0); %Monocytes 10.4 % (0.0-10.0); %Neutrophils 51.2 % (42.0-75.0); Hemoglobin 14.7 g/dL (14.0-18.0); Mean Corpuscular HGB CONC 32.4 g/dL (32.0-36.0); Mean Corpuscular Volume 95.5 fL (78.0-98.0); Mean Platelet Volume 7.3 fL (7.4-10.4); Platelet Count 268 thou/uL (130-400); RBC Distribution Width 13.5 % (11.5-14.5); Red Blood Cell (RBC) Count 4.74 mill/uL (4.70-6.10); White Blood Cell (WBC) Count 6.7 thou/uL (4.8-10.8)
[2020-06-26 05:01] LABS: Anion Gap 15 mmol/L (10-20); BUN (Urea Nitrogen) 16 mg/dL (8.9-20.6); Calc. Creatinine Clearance 110 mL/min (70-130); Calcium 8.6 mg/dL (7.8-10.44); Carbon Dioxide 24 mmol/L (22-29); Chloride 104 mmol/L (98-107); Glucose 102 mg/dL (70-105); Magnesium 2.1 mg/dL (1.6-2.6); Potassium 4.1 mmol/L (3.5-5.1); Sodium 139 mmol/L (136-145)
[2020-06-26] MEDS: Heparin 5,000 UNITS/ML VIAL SC SCH ×3 (08:30→20:26)
[2020-06-26] MEDS: Clopidogrel Bisulfate 75 MG TAB PO SCH (08:30)
[2020-06-26] MEDS: Magnesium Oxide 400 MG TAB PO SCH ×2 (08:30→20:26)
[2020-06-26] MEDS: Aspirin 81 mg Enteric Coated Tablet PO SCH (08:30)
[2020-06-26] MEDS: Bumetanide 1 MG TAB PO SCH ×2 (08:31→15:27)
[2020-06-26] MEDS: Carvedilol 25 MG TAB PO SCH ×2 (08:31→20:25)
[2020-06-26] MEDS ORDERED: Milrinone Lactate/D5W 20 MG in Premix Bag 1 BAG IV SCH (10:15)
[2020-06-26] MEDS ORDERED: Levothyroxine Sodium 25 MCG TAB PO SCH (10:30)
[2020-06-26] MEDS ORDERED: Spironolactone 25 MG TAB PO SCH (10:45)
--- NOTE | 2020-06-26 10:54 | PRG ---
DATE OF SERVICE: 06/26/2020 SERVICE: Advanced Heart Failure Cardiology Service. SUBJECTIVE: Mr. Vega had an excellent day. Even with down titration of milrinone, he was still able to maintain his function. He was able to walk to the atrium 4 times. He did this without feeling weak or short of breath. He said that he has not felt this good for a long time. He is looking forward to being able to go home. He understands that he needs to take his medicine and also do aerobic activity. REVIEW OF SYSTEMS: GENERAL: There is no fever, chills, productive cough. HEENT: There is no change in vision, hearing, or swallowing. PULMONARY: He is breathing easy. CARDIAC: There is no chest pain, palpitations, or syncope. GI: There is no nausea, vomiting, diarrhea. : He was able to urinate well on his own. MUSCULOSKELETAL: There is no new muscle or joint pains. He has chronic low back pain. INTEGUMENT: There is no new skin breakdown. NEUROLOGIC: There are no focal deficits or weaknesses. CURRENT MEDICATIONS: 1. Aspirin 81 mg daily. 2. Bumex 1 mg b.i.d. 3. Carvedilol 25 mg q.12 hours. 4. Plavix 75 mg daily. 5. Magnesium oxide 400 mg b.i.d. 6. Entresto 24/ combination 1 tablet twice a day. 7. Trazodone 100 mg each night. His telemetry is reviewed, it shows sinus rhythm. There is no concerning arrhythmia. PHYSICAL EXAMINATION: VITAL SIGNS: His vitals are variable. Hydralazine and isosorbide dinitrate were switched over to Entresto 24/ last night. His systolic blood pressure ranged between 108 and 134. His diastolic blood pressure ranged between 62 and 82. His 24-hour In's and Out's are 2500 in and 3850 out, so his net negative 1300 mL. GENERAL: Alert, conversational, sitting comfortable on chair. HEENT: Show EOMI. Oropharynx is benign with moist mucosa. NECK: His JVP is about 10 cm. LUNGS: Clear to auscultation bilaterally. HEART: Regular rate and rhythm with normal S1, S2. There is faint 1/6 holosystolic murmur near the apex. There are no gallops, no rubs. His right radial artery has a really strong pulse, so there is no sign of complication. ABDOMEN: Soft, nontender. Positive bowel sounds. EXTREMITIES: Lower extremities, there is pitting edema from the feet to just right below his knee. However, the amount indention is much less now, it is probably about 0.5 cm pitting edema, so it is about 2+, but there was no more thigh edema. LABORATORY VALUES: Sodium 139, potassium 4.1, chloride 104, bicarb 24, BUN 16, creatinine 1.27. BNP is 409. This is excellent decrease from 1300 of a week ago. ASSESSMENT: 49-year-old gentleman resides in [place] Heart Association stage C and [place] Heart Association class III heart failure with reduced ejection fraction. He has both systolic and diastolic dysfunctions. It is combination of nonischemic cardiomyopathy and coronary artery disease. Currently, he is making excellent improvement. There is a good chance that he will be able to titrate out milrinone today and he will go home on combination of carvedilol 25 mg twice a day, Entresto 24/26 twice a day. Entresto will need to be titrated up to 49/51, I will add spironolactone 25 mg today. He will need to be maintained on Bumex 1 mg twice a day. He will also need to have magnesium supplemented. He will also need to have a LifeVest on him. He will need to have a TURN MACHINE OPERATOR-D device. Even though he is revascularized at LAD, due to the global nature of dysfunction, it cannot be attributed to one vessel alone. Thus, he will not likely to have a full recovery. Implantation of TURN MACHINE OPERATOR-D device will be helpful in light that he has a left bundle branch block pattern at the ECG with QRS about 180 milliseconds. For now, we will aim to titrate off milrinone, transition to oral medication with a good chance of being discharged tomorrow. RECOMMENDATIONS: Please see following my recommendations: 1. Decrease milrinone to 0.125 mcg/kg/minute. 2. Stop milrinone at 9 p.m., today. 3. Please add spironolactone 25 mg p.o. daily, first dose today. 4. Ensure that patient has LifeVest. 5. Ensure patient has the [email or web address] Patient Assistance application in hand before discharge tomorrow. It has been a pleasure taking care of Mr. Vega. If any questions, please give me a call. The total visitation time today is 40 minutes. Job ID: [id number] MTDD
--- NOTE | 2020-06-26 15:59 | PDOC.HOSPP ---
- Subjective Encounter Date: 06/26/20 Encounter Time: 10:20 Subjective: pt up in bed no complains - Objective Vital Signs & Weight: Vital Signs (12 hours) Temp Pulse Pulse Pulse Resp BP BP 06/26/20 12:58 73 73 140/84 130/82 06/26/20 11:45 97.7 F 72 18 06/26/20 07:20 97.7 F 73 18 06/26/20 03:59 97.8 F 74 18 BP BP Pulse Ox Pulse Ox 06/26/20 12:58 96 06/26/20 11:45 140/84 95 06/26/20 07:20 134/85 96 06/26/20 03:59 124/62 96 Weight Weight 237 lb 9.6 oz I&O: 06/25/20 06/26/20 06/27/20 06:59 06:59 06:59 Intake Total 2200 2502 100 Output Total 3150 3850 Balance -950 -1348 100 Result Diagrams: 06/26/20 04:03 06/26/20 04:03 Additional Labs: Accuchecks 06/26/20 06/26/20 06/25/20 10:43 05:55 20:05 POC Glucose 106 H 103 H 154 H 06/25/20 16:59 POC Glucose 114 H Hospitalist ROS - Review of Systems Respiratory: denies: cough, dry, shortness of breath, hemoptysis, SOB with excertion, pleuritic pain, sputum, wheezing, other Cardiovascular: denies: chest pain, palpitations, orthopnea, paroxysmal noc. dyspnea, edema, light headedness, other Gastrointestinal: denies: nausea, vomiting, abdominal pain, diarrhea, constipation, melena, hematochezia, other - Medication Medications: Active Medications Generic Name Dose Route Start Last Admin Trade Name Freq PRN Reason Stop Dose Admin Acetaminophen 1,000 mg 06/17/20 03:55 06/25/20 10:31 Acetaminophen 500 Mg Tab PO 1,000 mg Q6H PRN Administration Mild Pain (1-3) Aspirin 81 mg 06/21/20 09:00 06/26/20 08:30 Aspirin 81 Mg Enteric Coated Tablet PO 81 mg DAILY BRIA Administration Atorvastatin Calcium 80 mg 06/22/20 21:00 06/25/20 20:54 Atorvastatin Calcium 40 Mg Tab PO 80 mg HS BRIA Administration Bumetanide 1 mg 06/25/20 16:30 06/26/20 15:27 Bumetanide 1 Mg Tab PO 1 mg BID-AC BRIA Administration Carvedilol 25 mg 06/24/20 21:00 06/26/20 08:31 Carvedilol 25 Mg Tab PO 25 mg Q12HR BRIA Administration Clopidogrel Bisulfate 75 mg 06/24/20 09:00 06/26/20 08:30 Clopidogrel Bisulfate 75 Mg Tab PO 75 mg DAILY BRIA Administration Heparin Sodium (Porcine) 5,000 units 06/21/20 09:00 06/26/20 14:36 Heparin 5,000 Units/Ml Vial SC 5,000 units TID BRIA Administration Milrinone Lactate/Dextrose 20 100 mls @ 4.525 mls/hr 06/26/20 10:15 06/26/20 10:40 mg/ Device IV 06/26/20 21:00 100 mls INF BRIA Administration Protocol 0.125 MCG/KG/MIN Magnesium Oxide 400 mg 06/22/20 21:00 06/26/20 08:30 Magnesium Oxide 400 Mg Tab PO 400 mg BID BRIA Administration Sacubitril/Valsartan 1 tab 06/25/20 21:00 06/26/20 09:52 Sacubitril 24mg/Valsartan 26mg Tab PO 1 tab BID BRIA Administration Sodium Chloride 10 ml 06/17/20 09:00 06/26/20 08:31 Flush - Normal Saline 10 Ml Syringe IVF 10 ml Q12HR BRIA Administration Trazodone HCl 100 mg 06/18/20 21:00 06/25/20 20:55 Trazodone Hcl 50 Mg Tab PO 100 mg HS BRIA Administration - Exam Neck: negative: supple, symmetric, no JVD, no thyromegaly, no lymphadenopathy, no carotid bruit, JVD Heart: negative: RRR, no murmur, no gallops, no rubs, normal peripheral pulses, irregular, diminshed peripheral pulses, murmur present, II/IV, III/IV Respiratory: negative: CTAB, no wheezes, no rales, no ronchi, normal chest expansion, no tachypnea, normal percussion, rales, rhonchi, tachypneic, wheezes Gastrointestinal: negative: soft, non-tender, non-distended, normal bowel sounds, no palpable masses, no hepatomegaly, no splenomegaly, no bruit, no guarding, no rigidity, tender to palpation, distended, diminished bowl sounds, voluntary guarding Hosp A/P - Plan (1) CHF exacerbation Code(s): I50.9 - HEART FAILURE, UNSPECIFIED Status: Suspected Qualifiers: Heart failure type: unspecified Qualified Code(s): I50.9 - Heart failure, unspecified (2) Cardiomyopathy Code(s): I42.9 - CARDIOMYOPATHY, UNSPECIFIED Status: Suspected Qualifiers: Cardiomyopathy type: unspecified Qualified Code(s): I42.9 - Cardiomyopathy, unspecified (3) Psoriasis Code(s): L40.9 - PSORIASIS, UNSPECIFIED Status: Chronic (4) HTN (hypertension) Code(s): I10 - ESSENTIAL (PRIMARY) HYPERTENSION Status: Chronic Qualifiers: Hypertension type: essential hypertension Qualified Code(s): I10 - Essential (primary) hypertension (5) MAXINE (acute kidney injury) Code(s): N17.9 - ACUTE KIDNEY FAILURE, UNSPECIFIED Status: Acute (6) DM type 2 (diabetes mellitus, type 2) Status: Acute Qualifiers: Diabetes mellitus senior care insulin use: without senior care use (7) Obesity (BMI 30-39.9) Code(s): E66.9 - OBESITY, UNSPECIFIED Status: Chronic - Plan gentle diuresis, watch for renal function cardiology consultation, echo pending has enormous weight gain of around 47lbs in 3-4 weeks (from 243 to 290lbs) continue aspirin marcella hose to lower extremities he has h/o using cocaine 15yrs back for 5 yrs duration, thc off and on, no other drugs hemostable has no insurance/non compliance, might need stress test once he has diuresed well 1 patient will undergo cardiac catheterization 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 will increase his blood pressure medication. 06/19 pt has some scabs to his left lower ext but has no elevated wbc or fever. will monitor for now. bp meds adjusted will monitor. possible cath in am. pt is diuresing well will continue lasix for now. 06/20 will stop lasix since his creatinine has worsen a bit. pt going for cardiac cath in am. pt will need life vest on discharge. 06/21 patient's creatinine continues to improve. Possible cath in a.m. Will get ICD. We will continue milrinone for now 06/22 patient status post cardiac cath will require bypass however CV surgery declined bypass and recommended medical management with stent placement. Patient continues to be on the milrinone drip and diuretics. We will continue to monitor labs in a.m. 06/23 that is post LAD stent. Patient will be discharged on LifeVest. We will continue milrinone. Status post IV fluids for his kidneys. We will continue to monitor. 06/24 diuretics held yesterday. Patient continues to be on milrinone. Creatinine worsened today. 06/25 patient started on Bumex today. Renal function improved slowly. Patient was started on Entresto by heart failure. 06/26 pt's renal function improved. Started on Entresto. possible discharge in am.
[2020-06-26] MEDS: Atorvastatin Calcium 40 MG TAB PO SCH (20:25)
[2020-06-26] MEDS: traZODone HCl 50 MG TAB PO SCH (20:26)
[2020-06-27 04:46] LABS: #Basophils 0.2 thou/uL (0.0-0.2); #Eosinphils 0.3 thou/uL (0.0-0.7); #Lymphocytes 3.2 thou/uL (1.20-3.40); #Monocytes 0.9 thou/uL (0.11-0.59); #Neutrophils 4.8 thou/uL (1.40-6.50); %Basophils 2.1 % (0.0-1.0); %Eosinophils 2.8 % (0.0-10.0); %Lymphocytes 34.5 % (21.0-51.0); %Monocytes 9.4 % (0.0-10.0); %Neutrophils 51.3 % (42.0-75.0); Hemoglobin 16.2 g/dL (14.0-18.0); Mean Corpuscular HGB CONC 32.2 g/dL (32.0-36.0); Mean Corpuscular Volume 96.2 fL (78.0-98.0); Mean Platelet Volume 7.8 fL (7.4-10.4); Platelet Count 278 thou/uL (130-400); RBC Distribution Width 13.6 % (11.5-14.5); Red Blood Cell (RBC) Count 5.22 mill/uL (4.70-6.10); White Blood Cell (WBC) Count 9.3 thou/uL (4.8-10.8)
[2020-06-27 05:12] LABS: Anion Gap 15 mmol/L (10-20); BUN (Urea Nitrogen) 21 mg/dL (8.9-20.6); Calc. Creatinine Clearance 97 mL/min (70-130); Calcium 8.9 mg/dL (7.8-10.44); Carbon Dioxide 26 mmol/L (22-29); Chloride 103 mmol/L (98-107); Glucose 100 mg/dL (70-105); Magnesium 2.2 mg/dL (1.6-2.6); Potassium 4.3 mmol/L (3.5-5.1); Sodium 140 mmol/L (136-145)
[2020-06-27] MEDS ORDERED: Levothyroxine Sodium 25 MCG TAB PO SCH (06:00)
[2020-06-27] MEDS ORDERED: Spironolactone 25 MG TAB PO SCH (08:00)
[2020-06-27] MEDS: Aspirin 81 mg Enteric Coated Tablet PO SCH (08:10)
[2020-06-27] MEDS: Carvedilol 25 MG TAB PO SCH (08:11)
[2020-06-27] MEDS: Clopidogrel Bisulfate 75 MG TAB PO SCH (08:11)
[2020-06-27] MEDS: Magnesium Oxide 400 MG TAB PO SCH (08:11)
[2020-06-27] MEDS: Bumetanide 1 MG TAB PO SCH ×2 (08:11→15:12)
[2020-06-27] MEDS: Heparin 5,000 UNITS/ML VIAL SC SCH ×2 (08:11→15:12)
--- NOTE | 2020-06-27 11:02 | PRG ---
DATE OF SERVICE: 06/27/2020 SERVICE: Advanced Heart Failure Cardiology Consulting Service. SUBJECTIVE: Mr. Vega had an excellent day yesterday. He was able to walk around again multiple times to the atrium. He was able to wean off the Milrinone completely. He did not notice much difference. He still feels good. He says he feels dramatically improved in comparison to admission. REVIEW OF SYSTEMS: GENERAL: There is no fever, chills, or productive cough. HEENT: There is no change in vision, hearing, or swallowing. PULMONARY: He is not short of breath. Breathing easily. CARDIAC: There is no chest pain, palpitations, or syncope. GASTROINTESTINAL: There is no nausea or vomiting. However, he says there is some more loose stool, but not diarrhea. GENITOURINARY: He is urinating quite well. He says he is urinating quite a lot. MUSCULOSKELETAL: He has chronic back pain, but there is no new muscle or joint pains. INTEGUMENT: There is no skin breakdown. NEUROLOGIC: There are no new focal deficits or weaknesses. CURRENT MEDICATIONS: Include, 1. Aspirin 81 mg daily. 2. Atorvastatin 80 mg daily. 3. Bumex 1 mg b.i.d. 4. Carvedilol 25 mg q.12 hours. 5. Plavix 75 mg daily. 6. Magnesium oxide 400 mg b.i.d. 7. Entresto 24/ one tablet b.i.d. 8. Spironolactone 25 mg daily. OBJECTIVE: TELEMETRY: Reviewed. It was sinus rhythm with occasional PVC. There are no concerning arrhythmias. VITAL SIGNS: Showed that his systolic blood pressure ranged between 136 to 156, diastolic blood pressure between 89 and 97, so he is a bit too hypertensive. His Entresto needs to be titrated up. GENERAL: He is alert and conversational, sitting comfortably in chair, wanting to go home. HEENT: Show EOMI. Oropharynx is benign with moist mucosa. NECK: JVP is about 10 cm. LUNGS: Clear to auscultation bilaterally. There is good air movement bilaterally. CARDIAC: Regular rate and rhythm with normal S1 and S2. There is 1/6 holosystolic murmur at the apex. ABDOMEN: Soft, nontender. Positive bowel sounds. EXTREMITIES: There is a good right radial pulse. Lower extremities, there is still about 0.5 cm pitting edema from feet to about two-third way toward his knees. It is less than yesterday. This is on a way to decrease. LABORATORY DATA: His chemistry shows sodium 140, potassium 4.3, chloride 103, bicarb 26, BUN 21, and creatinine of 1.43. This is expected because the Entresto was started and Milrinone was titrated off, so with low cardiac output, rise in BUN and creatinine will be expected. However, this is still much better than what it was. ASSESSMENT: This is a 49-year-old gentleman who resides in [place] Heart Association stage C, [place] Heart Association class III heart failure with reduced ejection fraction. This heart failure has combined systolic and diastolic dysfunction. He also has significant coronary artery disease. His left anterior descending artery was stented. However, the amount of coronary artery disease does not explain his severe cardiomyopathy. Thus, he also has a nonischemic component of cardiomyopathy. He has responded quite well to treatment. He is now having sufficient cardiac output and working towards euvolemic. He can be discharged. However, I do not expect his heart to recover to normal. He has a left bundle-branch block with a wide QRS of 180 milliseconds. Therefore, he can benefit from a CHANNEL EXECUTIVE-D device. However, this cannot be done until sufficient times given for potential recovery from coronary artery stent. For now, he can be discharged and followed as an outpatient. Please see the following for my recommendations. RECOMMENDATIONS: 1. Continue carvedilol 25 mg p.o. q.12 hours. 2. Increase Entresto to 49/51 combination p.o. q.12 hours. I gave the patient prescription and 30-day free card. This patient needs to turn in the [employer] Patient Assistance. If he turns it in, there is a good chance that he can get this medication for free. 3. Spironolactone 25 mg daily. 4. Continue Bumex 1 mg by mouth twice a day for at least one week and after one week, this probably needs to be decreased down to just once daily. 5. Continue with aspirin daily. 6. Continue with Plavix for 6 months to a year. 7. Continue with atorvastatin 80 mg p.o. at bedtime. He does have significant coronary artery disease. 8. Continue with magnesium 400 mg b.i.d. This helps to keep the arrhythmia away. 9. He is to follow with Dr. Lilian Villalta for cardiac followup. 10. He will need a followup echocardiogram. 11. If all possible, please have the LifeVest people to talk to him. He should go home with a LifeVest because he did have syncope at home and then he did have some wide-complex tachycardia early on admission. He does not have those now. 12. He needs to see Dr. Smith for followup also in the future for potential CHANNEL EXECUTIVE-D device implant. It has been a pleasure taking care of Mr. Vega. If you have any questions, please give me a call. The total time for visit is 45 minutes. Job ID: [id number]
[2020-06-27 15:41] VITALS: BP 111/76; TEMP 97.8
--- NOTE | 2020-06-27 16:15 | PDOC.DS.DS ---
Provider - Provider Date of Admission: 06/17/20 03:14 Date of Discharge: 06/27/20 Admitting Provider: Donavon Wallace Consultations: Cardiology Primary Care Physician: GORDO LEAL MD Course - Hospital Course Hospital Course: Patient is a very pleasant 49-year-old male initially presented to the hospital with shortness of breath. Echocardiogram indicated low EF. Patient at this time underwent cardiac catheterization and was noted to have a combination of nonischemic cardiomyopathy and CAD. Patient underwent a stent to the LAD he wi ll have a LifeVest on discharge. Patient was put on milrinone and was diuresed well. He was educated to not eat any salty foods. Patient did have acute kidney injury however that resolved patient will be started on Entresto. - Labs Lab Results: 06/27/20 04:01 06/27/20 04:01 Abnormal Lab Results - Last 48 hrs 06/26/20 04:03: MPV 7.3 L, Monocytes % 10.4 H, Basophils % 1.7 H, Monocytes # 0.7 H 06/27/20 04:01: BUN 21 H, Creatinine 1.43 H 06/27/20 04:01: Basophils % 2.1 H, Monocytes # 0.9 H - Physical Exam Vitals: Vital Signs (12 hours) Temp Pulse Resp BP Pulse Ox 06/27/20 15:31 97.8 F 70 18 111/76 97 06/27/20 11:35 97.7 F 65 18 110/79 97 06/27/20 08:00 98.6 F 70 22 H 136/89 98 Weight Weight 239 lb 3.2 oz Physical Exam: The patient was seen and examined on the day of discharge. Problem - Discharge Plan Assessment: 1) CHF exacerbation Code(s): I50.9 - HEART FAILURE, UNSPECIFIED Status: Suspected Qualifiers: Heart failure type: unspecified Qualified Code(s): I50.9 - Heart failure, unspecified (2) Cardiomyopathy Code(s): I42.9 - CARDIOMYOPATHY, UNSPECIFIED Status: Suspected Qualifiers: Cardiomyopathy type: unspecified Qualified Code(s): I42.9 - Cardiomyopathy, unspecified (3) Psoriasis Code(s): L40.9 - PSORIASIS, UNSPECIFIED Status: Chronic (4) HTN (hypertension) Code(s): I10 - ESSENTIAL (PRIMARY) HYPERTENSION Status: Chronic Qualifiers: Hypertension type: essential hypertension Qualified Code(s): I10 - Essential (primary) hypertension (5) MAXINE (acute kidney injury) Code(s): N17.9 - ACUTE KIDNEY FAILURE, UNSPECIFIED Status: Acute (6) DM type 2 (diabetes mellitus, type 2) Status: Acute Qualifiers: Diabetes mellitus half-way insulin use: without half-way use (7) Obesity (BMI 30-39.9) Code(s): E66.9 - OBESITY, UNSPECIFIED Status: Chronic Plan - Discharge Medications Prescriptions: Spironolactone [Aldactone] 25 mg PO QAM-WM #30 tab Bumetanide [Bumex] 1 mg PO BID-AC #60 tab Carvedilol [Coreg] 25 mg PO Q12HR #60 tab Aspirin [Ecotrin Low Strength] 81 mg PO DAILY #30 tab Sacubitril/Valsartan 49/51 [Entresto 49 mg-51 mg Tablet] 1 tab PO BID #60 tab Atorvastatin Calcium [Lipitor] 80 mg PO HS #30 tab Magnesium Oxide 400 mg PO BID #60 tab Clopidogrel Bisulfate [Plavix] 75 mg PO DAILY #30 tab Home Medications: Medication Instructions Recorded Confirmed Type metFORMIN HCl [Metformin ER 1,000 mg PO BID 06/17/20 06/17/20 History Gastric] traZODone HCl [Trazodone HCl] 100 mg PO HS 06/17/20 06/17/20 History Aspirin [Ecotrin Low Strength] 81 mg PO DAILY #30 tab 06/27/20 Rx Atorvastatin Calcium [Lipitor] 80 mg PO HS #30 tab 06/27/20 Rx Bumetanide [Bumex] 1 mg PO BID-AC #60 tab 06/27/20 Rx Carvedilol [Coreg] 25 mg PO Q12HR #60 tab 06/27/20 Rx Clopidogrel Bisulfate [Plavix] 75 mg PO DAILY #30 tab 06/27/20 Rx Magnesium Oxide 400 mg PO BID #60 tab 06/27/20 Rx Sacubitril/Valsartan 49/51 1 tab PO BID #60 tab 06/27/20 Rx [Entresto 49 mg-51 mg Tablet] Spironolactone [Aldactone] 25 mg PO QAM-WM #30 tab 06/27/20 Rx Allergies: codeine Allergy (Mild, Verified 06/17/20 06:24) Nausea - Discharge Instructions Activity:: Activity as Tolerated Nourishment:: Fluid Restriction Diet, Heart Healthy Diet - Follow up Plan Referrals: Card[facility] Rehab - [facility] [Outside] - 07/06/20 1:15 pm (PLEASE CALL AND CONFIRM APPOINTMENT. ) GORDO LEAL MD [Primary Care Provider] - 7 Days (PLEASE CALL AND SCHEDULE AN APPOINTMENT. ) Terra Villalta MD [Active] - 14 Days (Please follow up with your mental health program director in 2 weeks. Call the office to schedule an appointment.) Asif Smith MD [[employer]] - (Please follow up in 3-4 weeks. Call the office to schedule an appointment.) Disposition: HOME Quality - Care Measures CORE MEASURES:: N/A
--- NOTE | 2020-06-27 17:05 | PDOC.EP ---
- Subjective Date: 06/27/20 Time: 10:00 - Review of Systems ROS unobtainable: due to endotracheal tube, due to mental status Constitutional: denies: chills, fever, malaise, sweats, weakness, other Respiratory: denies: cough, dry, hemoptysis, pleuritic pain, shortness of breath, SOB with excertion, sputum, wheezing, other Cardiology: denies: chest pain, edema, heart racing, light headedness, paroxysmal noc. dyspnea, orthopnea, palpitations, passing out, pleuritic pain, pressure, swelling, other Gastrointestinal: denies: abdominal pain, constipation, diarrhea, hematochezia, melena, nausea, vomitting, other Musculoskeletal: denies: unstable gait, falls, neck pain, shoulder pain, arm pain, hand pain, leg pain, foot pain, other Neurological: denies: headache, vision changes, other - Objective Allergies/Adverse Reactions: Allergies Allergy/AdvReac Type Severity Reaction Status Date / Time codeine Allergy Mild Nausea Verified 06/17/20 06:24 Vital Signs & Weight: Vital Signs Temp Pulse Resp BP Pulse Ox 06/27/20 15:31 97.8 F 70 18 111/76 97 06/27/20 11:35 97.7 F 65 18 110/79 97 06/27/20 08:00 98.6 F 70 22 H 136/89 98 Weight 239 lb 3.2 oz I/O: I/O 06/26/20 06/27/20 06/28/20 06:59 06:59 06:59 Intake Total 2502 2540 Output Total 3850 1700 Balance -1348 840 - Physical Exam General: alert & oriented x3 HEENT: normocephaly Neck: no JVD/HJR Cardiology: no murmur Lungs: normal breath sounds Neurology: grossly intact Abdomen: soft - Labs Result Diagrams: 06/27/20 04:01 06/27/20 04:01 - EKG Interpretation EKG Method: Telemetry EKG shows: Sinus rhythm - Assessment/Plan Assessment/Plan: 1. Acute on chronic systolic congestive heart failure. a. A 2D echo from 06/17/2020 demonstrates LVEF of 10% to 15%, [id number] b. Symptoms are improving with diuresis and milrinone. left atrial enlargement, mild TR. 2. Left bundle-branch block. 3. History of syncopal spells. 4. Renal insufficiency with creatinine of 1.5. 5. Type 2 diabetes. 6. Hypertension. 7. Elevated BMI. 8. History of smoking. PLAN: His heart failure is likely pre-existing for at least a year and has been treated with adequate medical regimen. S/P left heart catheterization demonstrating significant 80% LAD coronary artery disease. Stented 06/23/19. stable post procedure. Will consider for a Bi-V ICD implantation if LVEF <=35% 90 day post revascularization. Will monitor for Ventricular arrhythmia while in hospital. Standard GDMT for CHF. . . 06/27/19. Stable course over weekend. Life vest arranged on on discharge today. Plan to see him back after 3 months follow up ECHO in office.
[2020-06-27] MEDS ORDERED: Sacubitril 49 MG/Valsartan 51 MG TABLET PO SCH (21:00)
== END 2020-06-27 16:56 | disposition home or self-care (01) | DRG 247 ==
LOC: ERS 00:49 → 2NO 03:14
PROVIDERS: ADMIT Internal Medicine; ATTEND Internal Medicine
PROC: 4A023N7 Measurement of Cardiac Sampling and Pressure, Left Heart, Percutaneous Approach (ICD-10-PCS; 2020-06-22)
PROC: B2111ZZ Fluoroscopy of Multiple Coronary Arteries using Low Osmolar Contrast (ICD-10-PCS; 2020-06-22)
PROC: 027034Z Dilation of Coronary Artery, One Artery with Drug-eluting Intraluminal Device, Percutaneous Approach (ICD-10-PCS; principal; 2020-06-23)
DX: I11.0 Hypertensive heart disease with heart failure (principal); N17.9 Acute kidney failure, unspecified; I50.23 Acute on chronic systolic (congestive) heart failure; Z20.822 Contact with and (suspected) exposure to COVID-19; I25.10 Atherosclerotic heart disease of native coronary artery without angina pectoris; I42.8 Other cardiomyopathies; F12.10 Cannabis abuse, uncomplicated; F17.210 Nicotine dependence, cigarettes, uncomplicated; F32.9 Major depressive disorder, single episode, unspecified; E11.9 Type 2 diabetes mellitus without complications; I44.7 Left bundle-branch block, unspecified; I07.1 Rheumatic tricuspid insufficiency; L40.50 Arthropathic psoriasis, unspecified; I25.5 Ischemic cardiomyopathy; E66.9 Obesity, unspecified; Z68.34 Body mass index [BMI] 34.0-34.9, adult; Z82.49 Family history of ischemic heart disease and other diseases of the circulatory system; Z88.5 Allergy status to narcotic agent; Z79.899 Other long term (current) drug therapy; Z79.84 Long term (current) use of oral hypoglycemic drugs; Z80.8 Family history of malignant neoplasm of other organs or systems; Z79.82 Long term (current) use of aspirin
CPT/HCPCS: 36415; 36416; 71045; 80048; 80053; 80061; 80074; 80306; 80307; 82553; 83036; 83735; 83880; 84443; 84484; 85025; 85347; 87389; 92928; 93005; 93010; 93306; 93454; 93458; 93798; 94760; 96374; C9600; J0690; J1580; J1644; J1650; J1940; J2250; J2260; J3010; J3480; J7608; U0002

== ENCOUNTER 2020-12-27 11:19 | Outpatient (CLI) | payer OTHER | END 2020-12-27 11:20 | disposition home or self-care (01) | LOC: BICRAD 11:19 | PROVIDERS: ATTEND Internal Medicine | DX: Z02.71 Encounter for disability determination (principal); M19.042 Primary osteoarthritis, left hand; M18.12 Unilateral primary osteoarthritis of first carpometacarpal joint, left hand ==

== ENCOUNTER 2021-04-04 10:19 | Outpatient (CLI) | payer MEDICAID, OTHER | END 2021-04-04 10:20 | disposition home or self-care (01) | LOC: ULT 10:19 | PROVIDERS: ATTEND Psychiatry & Neurology Neurology | DX: I73.9 Peripheral vascular disease, unspecified (principal); I10 Essential (primary) hypertension; I21.9 Acute myocardial infarction, unspecified; Z87.891 Personal history of nicotine dependence; Z98.890 Other specified postprocedural states | CPT/HCPCS: 93922 ==

== ENCOUNTER 2022-10-25 15:01 | Outpatient (CLI) | payer OTHER | END 2022-10-25 15:02 | disposition home or self-care (01) | LOC: BICRAD 15:01 | PROVIDERS: ATTEND Family Medicine | DX: M54.50 Low back pain, unspecified (principal); M47.816 Spondylosis without myelopathy or radiculopathy, lumbar region; M46.04 Spinal enthesopathy, thoracic region; M25.78 Osteophyte, vertebrae; R29.890 Loss of height | CPT/HCPCS: 72100 ==

== ENCOUNTER 2024-04-07 18:29 | Inpatient (IN) | payer BC ==
[2024-04-07] MEDS ORDERED: HYDROmorphone 0.5 MG/0.5 ML SYRINGE ONE (19:10)
[2024-04-07 19:29] LABS: Troponin I 0.019 ng/mL (< 0.028)
[2024-04-07] MEDS ORDERED: Acetaminophen 650 MG Suppository PR PRN (19:31)
[2024-04-07] MEDS ORDERED: Dextrose 50% Abboject 50 ML SYRINGE SLOW IVP PRN (19:31)
[2024-04-07] MEDS ORDERED: Dextrose 5% in Water 1,000 ML IV PRN (19:31)
[2024-04-07] MEDS ORDERED: Glucagon 1 MG/ML KIT IM PRN (19:31)
[2024-04-07] MEDS ORDERED: Ondansetron PF 4 MG/2 ML Vial IVP PRN (19:36)
[2024-04-07 22:17] VITALS: BMI 33.7
[2024-04-07] MEDS: Sodium Chloride 0.9% 1,000 ML IV SCH (23:32)
[2024-04-07] MEDS: Atorvastatin Calcium 40 MG TAB PO SCH (23:32)
[2024-04-08 01:28] LABS: Troponin I 0.012 ng/mL (< 0.028)
[2024-04-08 04:17] LABS: #Basophils 0.04 10x3/uL (0.0-0.2); %Basophils 0.5 % (0.0-1.0); %Eosinophils 2.6 % (0.0-10.0); %Lymphocytes 38.8 % (21.0-51.0); %Monocytes 9.9 % (0.0-10.0); %Neutrophils 47.6 % (42.0-75.0); Hematocrit 41.3 % (42.0-52.0); Hemoglobin 13.2 g/dL (14.0-18.0); Mean Corpuscular Hemoglobin 31.6 pg (27.0-31.0); Mean Corpuscular Volume 98.8 fL (78.0-98.0); Mean Platelet Volume 9.3 fL (7.4-10.4); Platelet Count 224 10x3/uL (130-400); RBC Distribution Width 13.2 % (11.5-14.5); Red Blood Cell (RBC) Count 4.18 mill/uL (4.70-6.10)
[2024-04-08 04:44] LABS: ALT (SGPT) 16 U/L (8-55); AST (SGOT) 13 U/L (5-34); Alkaline Phosphatase 46 U/L (40-110); Anion Gap 13 mmol/L (10-20); BUN (Urea Nitrogen) 24 mg/dL (8.4-25.7); Bilirubin, Total 0.6 mg/dL (0.2-1.2); Calc. Creatinine Clearance 86 mL/min (70-130); Calcium 7.9 mg/dL (7.8-10.44); Carbon Dioxide 23 mmol/L (22-29); Cardiac Risk 3.6 (Less than 4.5); Chloride 110 mmol/L (98-107); Cholesterol 71 mg/dl (< 200 Desired); Estimated GFR 54; Globulin 2.5 g/dL (2.4-3.5); Glucose 72 mg/dL (70-105); HDL Cholesterol 20 mg/dL (>60 Neg Risk); LDL Cholesterol, Calculated 26 mg/dL; Magnesium 2.1 mg/dL (1.6-2.6); Phosphorus 3.3 mg/dL (2.3-4.7); Potassium 3.9 mmol/L (3.5-5.1); Protein, Total 5.5 g/dL (6.0-8.3); Sodium 142 mmol/L (136-145); Triglycerides 125 mg/dL (Less than 150)
[2024-04-08] MEDS: Enoxaparin 40 MG (0.4 mL) SYRINGE SC SCH (08:39)
[2024-04-08] MEDS: Aspirin Chewable 81 MG TAB PO SCH (08:39)
[2024-04-08] MEDS: FLU (Fluarix Triv) TS24-25(6MOS UP)/PF 45 MCG/0.5 ML Syringe IM ONE (14:40)
[2024-04-08] MEDS: Pantoprazole DR 40 MG TAB PO SCH (18:50)
[2024-04-08] MEDS: Morphine 2 MG/ML VIAL SLOW IVP PRN (18:50)
[2024-04-08] MEDS: Acetaminophen 325 MG TAB PO PRN (21:08)
[2024-04-09] MEDS: Morphine 4 MG/ML VIAL SLOW IVP PRN (04:55)
[2024-04-09 05:04] LABS: #Basophils 0.04 10x3/uL (0.0-0.2); %Basophils 0.6 % (0.0-1.0); %Lymphocytes 41.4 % (21.0-51.0); %Monocytes 8.5 % (0.0-10.0); Hematocrit 42.1 % (42.0-52.0); Hemoglobin 13.7 g/dL (14.0-18.0); Mean Corpuscular HGB CONC 32.5 g/dL (32.0-36.0); Mean Corpuscular Hemoglobin 31.4 pg (27.0-31.0); Mean Corpuscular Volume 96.3 fL (78.0-98.0); Mean Platelet Volume 9.1 fL (7.4-10.4); Platelet Count 219 10x3/uL (130-400); RBC Distribution Width 12.7 % (11.5-14.5); Red Blood Cell (RBC) Count 4.37 mill/uL (4.70-6.10)
[2024-04-09 05:30] LABS: ALT (SGPT) 16 U/L (8-55); AST (SGOT) 15 U/L (5-34); Albumin 3.2 g/dL (3.5-5.0); Alkaline Phosphatase 54 U/L (40-110); Bilirubin, Direct 0.3 mg/dL (0.1-0.3); Bilirubin, Total 0.8 mg/dL (0.2-1.2); Protein, Total 5.4 g/dL (6.0-8.3)
[2024-04-09 05:40] LABS: Anion Gap 12 mmol/L (10-20); BUN (Urea Nitrogen) 18 mg/dL (8.4-25.7); Calc. Creatinine Clearance 105 mL/min (70-130); Calcium 8.5 mg/dL (7.8-10.44); Carbon Dioxide 23 mmol/L (22-29); Chloride 108 mmol/L (98-107); Estimated GFR 69; Glucose 82 mg/dL (70-105); Potassium 4.3 mmol/L (3.5-5.1); Sodium 139 mmol/L (136-145)
[2024-04-09] MEDS: Pantoprazole DR 40 MG TAB PO SCH (09:59)
[2024-04-09] MEDS: Lorazepam 2 MG/ML VIAL ONE (21:40)
[2024-04-09] MEDS: Nitroglycerin 0.4 MG TAB (25 Tab Bottle) SL PRN (21:40)
[2024-04-09] MEDS: Morphine 2 MG/ML VIAL SLOW IVP SCH (21:41)
[2024-04-09] MEDS ORDERED: Labetalol HCl 100 MG/20 ML VIAL SLOW IVP SCH (22:00)
[2024-04-09 22:05] LABS: Magnesium 2.1 mg/dL (1.6-2.6)
[2024-04-09 22:09] LABS: Troponin I 0.022 ng/mL (< 0.028)
[2024-04-09] MEDS: Nitroglycerin 0.4 MG TAB (25 Tab Bottle) ONE (22:16)
[2024-04-09] MEDS: Labetalol HCl 100 MG/20 ML VIAL ONE (22:18)
[2024-04-09] MEDS: Nitroglycerin 2% Ointment 1 INCH/1 GM Packet TOP SCH (22:22)
[2024-04-10 00:01] LABS: Amphetamine Not Detected (NotDetected); Barbiturates Screen Not Detected (NotDetected); Benzodiazepine Screen Not Detected (NotDetected); Cocaine Metabolite Screen Not Detected (NotDetected); Methadone Not Detected (NotDetected); Methamphetamine Not Detected (NotDetected); Opiate Screen Detected (NotDetected); Oxycodone Screen Not Detected (NotDetected); Phencyclidine (PCP) Not Detected (NotDetected); THC/Cannabinoid Screen Not Detected (NotDetected); Tricyclic Screen Not Detected (NotDetected)
[2024-04-10] MEDS: Furosemide 40 MG (4 mL) VIAL SLOW IVP SCH (00:15)
[2024-04-10 05:11] LABS: #Basophils 0.04 10x3/uL (0.0-0.2); %Basophils 0.5 % (0.0-1.0); %Eosinophils 3.5 % (0.0-10.0); %Lymphocytes 34.6 % (21.0-51.0); %Neutrophils 50.9 % (42.0-75.0); Hematocrit 45.5 % (42.0-52.0); Hemoglobin 15.1 g/dL (14.0-18.0); Mean Corpuscular HGB CONC 33.2 g/dL (32.0-36.0); Mean Corpuscular Volume 93.4 fL (78.0-98.0); Mean Platelet Volume 9.3 fL (7.4-10.4); Platelet Count 215 10x3/uL (130-400); RBC Distribution Width 12.9 % (11.5-14.5); Red Blood Cell (RBC) Count 4.87 mill/uL (4.70-6.10)
[2024-04-10 05:25] LABS: Anion Gap 16 mmol/L (10-20); BUN (Urea Nitrogen) 21 mg/dL (8.4-25.7); Calc. Creatinine Clearance 93 mL/min (70-130); Carbon Dioxide 22 mmol/L (22-29); Chloride 106 mmol/L (98-107); Estimated GFR 60; Glucose 173 mg/dL (70-105); Potassium 4.1 mmol/L (3.5-5.1); Sodium 140 mmol/L (136-145)
[2024-04-10 05:27] LABS: ALT (SGPT) 18 U/L (8-55); AST (SGOT) 17 U/L (5-34); Albumin 3.6 g/dL (3.5-5.0); Alkaline Phosphatase 65 U/L (40-110); Bilirubin, Direct 0.2 mg/dL (0.1-0.3); Bilirubin, Total 0.5 mg/dL (0.2-1.2); Protein, Total 6.6 g/dL (6.0-8.3)
[2024-04-10 10:40] LABS: Troponin I Less than 0.010 ng/mL (< 0.028)
[2024-04-10] MEDS ORDERED: Heparin 1,000 UNITS/ML VIAL ONE (13:07)
[2024-04-10] MEDS: Insulin Lispro 100 UNIT/ML 10 ML VIAL SC PRN (15:38)
[2024-04-11 05:03] LABS: #Basophils 0.05 10x3/uL (0.0-0.2); %Basophils 0.6 % (0.0-1.0); %Eosinophils 3.8 % (0.0-10.0); %Lymphocytes 29.4 % (21.0-51.0); %Monocytes 10.5 % (0.0-10.0); %Neutrophils 55.3 % (42.0-75.0); Hematocrit 47.2 % (42.0-52.0); Hemoglobin 15.7 g/dL (14.0-18.0); Mean Corpuscular HGB CONC 33.3 g/dL (32.0-36.0); Mean Corpuscular Volume 93.3 fL (78.0-98.0); Mean Platelet Volume 9.5 fL (7.4-10.4); Platelet Count 210 10x3/uL (130-400); RBC Distribution Width 12.9 % (11.5-14.5); Red Blood Cell (RBC) Count 5.06 mill/uL (4.70-6.10)
[2024-04-11 05:21] LABS: ALT (SGPT) 34 U/L (8-55); AST (SGOT) 32 U/L (5-34); Albumin 3.7 g/dL (3.5-5.0); Alkaline Phosphatase 60 U/L (40-110); Anion Gap 14 mmol/L (10-20); BUN (Urea Nitrogen) 21 mg/dL (8.4-25.7); Bilirubin, Direct 0.4 mg/dL (0.1-0.3); Bilirubin, Total 0.9 mg/dL (0.2-1.2); Calc. Creatinine Clearance 91 mL/min (70-130); Calcium 9.4 mg/dL (7.8-10.44); Carbon Dioxide 26 mmol/L (22-29); Chloride 104 mmol/L (98-107); Estimated GFR 59; Glucose 121 mg/dL (70-105); Potassium 4.3 mmol/L (3.5-5.1); Protein, Total 6.7 g/dL (6.0-8.3); Sodium 140 mmol/L (136-145)
[2024-04-11] MEDS: traMADol HCl 50 MG TAB PO PRN (11:43)
[2024-04-11 11:44] VITALS: BP 123/89; TEMP 97.2
[2024-04-12] MEDS ORDERED: Aspirin 81 mg Enteric Coated Tablet PO SCH (09:00)
== END 2024-04-11 17:15 | DRG 312 ==
LOC: SUATTDRO 18:29 → ERS 18:29 → EEVIPCON 18:29 → 2NO 19:28
PROVIDERS: ADMIT Family Medicine; ATTEND Hospitalist
DX: R55 Syncope and collapse (principal); N17.9 Acute kidney failure, unspecified; I13.0 Hypertensive heart and chronic kidney disease with heart failure and stage 1 through stage 4 chronic kidney disease, or unspecified chronic kidney disease; I50.22 Chronic systolic (congestive) heart failure; I77.4 Celiac artery compression syndrome; R45.851 Suicidal ideations; R10.13 Epigastric pain; I44.7 Left bundle-branch block, unspecified; R07.89 Other chest pain; F32.A Depression, unspecified; F41.9 Anxiety disorder, unspecified; L40.50 Arthropathic psoriasis, unspecified; F12.10 Cannabis abuse, uncomplicated; N18.9 Chronic kidney disease, unspecified; F17.210 Nicotine dependence, cigarettes, uncomplicated; E11.22 Type 2 diabetes mellitus with diabetic chronic kidney disease; I25.10 Atherosclerotic heart disease of native coronary artery without angina pectoris; E86.0 Dehydration; E78.5 Hyperlipidemia, unspecified; Z88.5 Allergy status to narcotic agent; I25.2 Old myocardial infarction; Z95.5 Presence of coronary angioplasty implant and graft; Z79.82 Long term (current) use of aspirin; Z79.84 Long term (current) use of oral hypoglycemic drugs; Z79.899 Other long term (current) drug therapy; Z79.02 Long term (current) use of antithrombotics/antiplatelets
CPT/HCPCS: 36415; 36416; 76705; 78472; 80048; 80053; 80061; 80076; 80306; 83605; 83690; 83735; 83880; 84100; 84443; 84484; 85025; 90656; 93005; 93010; 93306; 96374; A9560; J1170; J1644; J1650; J1815; J1940; J2060; J2272; J7030

== ENCOUNTER 2025-02-27 14:24 | Inpatient (IN) | payer MEDICAID, OTHER ==
[~2025-02-27 14:24] MED LIST: Iopamidol-370 76% 500 ML MDV (1 ML CHARGE) ONE
[2025-02-27 15:50] LABS: Bacteria/HPF None Seen HPF (None Seen); Glucose, Urine (Dipstick) Greater than 1000 mg/dL (Negative); Leukocyte Negative Leu/uL (Negative); Protein, Urine (Dipstick) Negative (Neg-Trace); RBC/HPF None Seen HPF (0-3); Specific Gravity, Urine 1.013 (1.002-1.036); WBC/HPF 0-3 HPF (0-3)
[2025-02-27 16:13] LABS: #Basophils 0.05 10x3/uL (0.0-0.2); #Eosinophils Less than 0.03 10x3/uL (0.0-0.7); #Monocytes 0.77 10x3/uL (0.11-0.59); #Neutrophils 6.62 10x3/uL (1.40-6.50); %Basophils 0.6 % (0.0-1.0); %Eosinophils 0.2 % (0.0-10.0); %Lymphocytes 12.2 % (21.0-51.0); %Monocytes 9.0 % (0.0-10.0); %Neutrophils 77.0 % (42.0-75.0); Hematocrit 39.1 % (42.0-52.0); Hemoglobin 12.0 g/dL (14.0-18.0); Mean Corpuscular Hemoglobin 31.9 pg (27.0-31.0); Mean Corpuscular Volume 104.0 fL (78.0-98.0); Platelet Count 171 10x3/uL (130-400); Red Blood Cell (RBC) Count 3.76 mill/uL (4.70-6.10); White Blood Cell (WBC) Count 8.60 10x3/uL (4.8-10.8)
[2025-02-27 16:29] LABS: ALT (SGPT) 37 U/L (Less than 45); AST (SGOT) 32 U/L (11-34); Albumin 3.3 g/dL (3.1-4.5); Alkaline Phosphatase 49 U/L (40-110); Anion Gap 15 mmol/L (10-20); BUN (Urea Nitrogen) 28 mg/dL (8.4-25.7); Bilirubin, Total 0.4 mg/dL (0.3-1.2); Calc. Creatinine Clearance 0 mL/min (70-130); Calcium 7.7 mg/dL (7.8-10.44); Carbon Dioxide 18 mmol/L (22-29); Chloride 110 mmol/L (98-107); Globulin 2.6 g/dL (2.4-3.5); Glucose 150 mg/dL (70-105); Potassium 4.9 mmol/L (3.5-5.1); Sodium 138 mmol/L (136-145)
[2025-02-27] MEDS ORDERED: Glucagon 1 MG/ML KIT IM PRN (19:16)
[2025-02-27] MEDS ORDERED: Dextrose 50% Abboject 50 ML SYRINGE SLOW IVP PRN (19:16)
[2025-02-28 00:31] VITALS: BMI 39.1
[2025-02-28] MEDS: Acetaminophen 325 MG TAB PO PRN (03:10)
[2025-02-28 04:19] LABS: #Basophils 0.03 10x3/uL (0.0-0.2); #Eosinophils Less than 0.03 10x3/uL (0.0-0.7); #Monocytes 0.93 10x3/uL (0.11-0.59); #Neutrophils 3.49 10x3/uL (1.40-6.50); %Basophils 0.5 % (0.0-1.0); %Eosinophils 0.2 % (0.0-10.0); %Lymphocytes 30.8 % (21.0-51.0); %Monocytes 14.3 % (0.0-10.0); %Neutrophils 53.4 % (42.0-75.0); Hematocrit 36.8 % (42.0-52.0); Hemoglobin 11.6 g/dL (14.0-18.0); Mean Corpuscular Hemoglobin 32.3 pg (27.0-31.0); Mean Corpuscular Volume 102.5 fL (78.0-98.0); Platelet Count 167 10x3/uL (130-400); Red Blood Cell (RBC) Count 3.59 mill/uL (4.70-6.10); White Blood Cell (WBC) Count 6.52 10x3/uL (4.8-10.8)
[2025-02-28 04:35] LABS: ALT (SGPT) 35 U/L (Less than 45); AST (SGOT) 29 U/L (11-34); Albumin 3.3 g/dL (3.1-4.5); Alkaline Phosphatase 44 U/L (40-110); Anion Gap 15 mmol/L (10-20); BUN (Urea Nitrogen) 23 mg/dL (8.4-25.7); Bilirubin, Total 0.3 mg/dL (0.3-1.2); Calc. Creatinine Clearance 92 mL/min (70-130); Calcium 8.0 mg/dL (7.8-10.44); Carbon Dioxide 20 mmol/L (22-29); Chloride 107 mmol/L (98-107); Globulin 2.3 g/dL (2.4-3.5); Glucose 167 mg/dL (70-105); Potassium 4.4 mmol/L (3.5-5.1); Sodium 138 mmol/L (136-145)
[2025-02-28] MEDS ORDERED: glipiZIDE 5 MG TAB PO SCH (07:30)
[2025-02-28] MEDS ORDERED: Spironolactone 25 MG TAB PO SCH (08:00)
[2025-02-28] MEDS ORDERED: Sacubitril 49 MG/Valsartan 51 MG TABLET PO SCH (09:00)
[2025-02-28] MEDS ORDERED: Carvedilol 25 MG TAB PO SCH (09:00)
[2025-02-28] MEDS: Magnesium Oxide 400 MG TAB PO SCH (10:13)
[2025-02-28] MEDS: Aspirin 81 mg Enteric Coated Tablet PO SCH (10:13)
[2025-02-28] MEDS: Gabapentin 300 MG CAP PO SCH (10:13)
[2025-02-28] MEDS: Isosorbide Mononitrate 30 MG ER.TAB.S PO SCH (10:14)
[2025-02-28] MEDS: Clindamycin 150 MG CAP PO SCH (10:14)
[2025-03-01] MEDS: Melatonin 3 MG TAB PO PRN (01:31)
[2025-03-01 04:46] LABS: #Basophils 0.03 10x3/uL (0.0-0.2); #Eosinophils 0.07 10x3/uL (0.0-0.7); #Monocytes 1.13 10x3/uL (0.11-0.59); #Neutrophils 5.91 10x3/uL (1.40-6.50); %Basophils 0.4 % (0.0-1.0); %Eosinophils 0.8 % (0.0-10.0); %Lymphocytes 15.3 % (21.0-51.0); %Monocytes 13.3 % (0.0-10.0); %Neutrophils 69.6 % (42.0-75.0); Hematocrit 41.6 % (42.0-52.0); Hemoglobin 13.4 g/dL (14.0-18.0); Mean Corpuscular Hemoglobin 32.2 pg (27.0-31.0); Mean Corpuscular Volume 100.0 fL (78.0-98.0); Platelet Count 186 10x3/uL (130-400); Red Blood Cell (RBC) Count 4.16 mill/uL (4.70-6.10); White Blood Cell (WBC) Count 8.49 10x3/uL (4.8-10.8)
[2025-03-01 05:02] LABS: ALT (SGPT) 45 U/L (Less than 45); AST (SGOT) 41 U/L (11-34); Albumin 3.9 g/dL (3.1-4.5); Alkaline Phosphatase 51 U/L (40-110); Anion Gap 17 mmol/L (10-20); BUN (Urea Nitrogen) 21 mg/dL (8.4-25.7); Bilirubin, Total 0.4 mg/dL (0.3-1.2); Calc. Creatinine Clearance 93 mL/min (70-130); Calcium 9.0 mg/dL (7.8-10.44); Carbon Dioxide 21 mmol/L (22-29); Chloride 103 mmol/L (98-107); Globulin 2.8 g/dL (2.4-3.5); Glucose 159 mg/dL (70-105); Potassium 4.8 mmol/L (3.5-5.1); Sodium 136 mmol/L (136-145)
[2025-03-01] MEDS ORDERED: Ondansetron HCl/PF 8 MG in Sodium Chloride 0.9% 50 ML IVPB PRN (10:14)
[2025-03-01] MEDS: Colchicine 0.6 MG TAB PO SCH (12:00)
[2025-03-01] MEDS ORDERED: Ondansetron PF 4 MG/2 ML Vial IVP PRN (12:07)
[2025-03-01] MEDS: Albuterol 200 PUFF (6.7GM INHALER) INH SCH (19:54)
[2025-03-01] MEDS ORDERED: Colchicine 0.6 MG TAB PO SCH (21:00)
[2025-03-02 04:53] LABS: #Basophils 0.04 10x3/uL (0.0-0.2); #Eosinophils 0.10 10x3/uL (0.0-0.7); #Monocytes 0.96 10x3/uL (0.11-0.59); #Neutrophils 2.42 10x3/uL (1.40-6.50); %Basophils 0.7 % (0.0-1.0); %Eosinophils 1.8 % (0.0-10.0); %Lymphocytes 36.7 % (21.0-51.0); %Monocytes 17.1 % (0.0-10.0); %Neutrophils 43.2 % (42.0-75.0); Hematocrit 40.0 % (42.0-52.0); Hemoglobin 12.8 g/dL (14.0-18.0); Mean Corpuscular Hemoglobin 31.7 pg (27.0-31.0); Mean Corpuscular Volume 99.0 fL (78.0-98.0); Platelet Count 171 10x3/uL (130-400); Red Blood Cell (RBC) Count 4.04 mill/uL (4.70-6.10); White Blood Cell (WBC) Count 5.61 10x3/uL (4.8-10.8)
[2025-03-02 05:10] LABS: ALT (SGPT) 48 U/L (Less than 45); AST (SGOT) 43 U/L (11-34); Albumin 3.5 g/dL (3.1-4.5); Alkaline Phosphatase 47 U/L (40-110); Anion Gap 15 mmol/L (10-20); BUN (Urea Nitrogen) 20 mg/dL (8.4-25.7); Bilirubin, Total 0.4 mg/dL (0.3-1.2); Calc. Creatinine Clearance 99 mL/min (70-130); Calcium 8.6 mg/dL (7.8-10.44); Carbon Dioxide 22 mmol/L (22-29); Chloride 104 mmol/L (98-107); Globulin 2.8 g/dL (2.4-3.5); Glucose 155 mg/dL (70-105); Potassium 4.8 mmol/L (3.5-5.1); Sodium 136 mmol/L (136-145)
[2025-03-02] MEDS: Carvedilol 25 MG TAB PO SCH (11:51)
[2025-03-02] MEDS: Spironolactone 25 MG TAB PO SCH (11:52)
[2025-03-03 04:56] LABS: #Basophils 0.03 10x3/uL (0.0-0.2); #Eosinophils 0.26 10x3/uL (0.0-0.7); #Monocytes 0.63 10x3/uL (0.11-0.59); #Neutrophils 1.39 10x3/uL (1.40-6.50); %Basophils 0.7 % (0.0-1.0); %Eosinophils 5.7 % (0.0-10.0); %Lymphocytes 48.2 % (21.0-51.0); %Monocytes 13.9 % (0.0-10.0); %Neutrophils 30.6 % (42.0-75.0); Hematocrit 41.8 % (42.0-52.0); Hemoglobin 13.3 g/dL (14.0-18.0); Mean Corpuscular Hemoglobin 31.8 pg (27.0-31.0); Mean Corpuscular Volume 100.0 fL (78.0-98.0); Platelet Count 187 10x3/uL (130-400); Red Blood Cell (RBC) Count 4.18 mill/uL (4.70-6.10); White Blood Cell (WBC) Count 4.54 10x3/uL (4.8-10.8)
[2025-03-03 05:17] LABS: ALT (SGPT) 54 U/L (Less than 45); AST (SGOT) 49 U/L (11-34); Albumin 3.7 g/dL (3.1-4.5); Alkaline Phosphatase 48 U/L (40-110); Anion Gap 17 mmol/L (10-20); BUN (Urea Nitrogen) 24 mg/dL (8.4-25.7); Bilirubin, Total 0.5 mg/dL (0.3-1.2); Calc. Creatinine Clearance 94 mL/min (70-130); Calcium 9.1 mg/dL (7.8-10.44); Carbon Dioxide 22 mmol/L (22-29); Chloride 106 mmol/L (98-107); Globulin 2.8 g/dL (2.4-3.5); Glucose 142 mg/dL (70-105); Potassium 5.2 mmol/L (3.5-5.1); Sodium 140 mmol/L (136-145)
[2025-03-03 10:48] LABS: Anion Gap 18 mmol/L (10-20); BUN (Urea Nitrogen) 24 mg/dL (8.4-25.7); Calc. Creatinine Clearance 96 mL/min (70-130); Calcium 9.4 mg/dL (7.8-10.44); Carbon Dioxide 20 mmol/L (22-29); Chloride 105 mmol/L (98-107); Glucose 204 mg/dL (70-105); Potassium 5.1 mmol/L (3.5-5.1); Sodium 138 mmol/L (136-145)
[2025-03-03 12:30] VITALS: BP 126/84; TEMP 98.4
== END 2025-03-03 13:27 | DRG 682 ==
LOC: ERS 14:24 → EEVIPCON 14:24 → UNDOADMIN 20:56 → 2NO 20:56
PROVIDERS: ADMIT Family Medicine; ATTEND Family Medicine
DX: N17.9 Acute kidney failure, unspecified (principal); J12.82 Pneumonia due to coronavirus disease 2019; U07.1 COVID-19; E87.20 Acidosis, unspecified; I50.22 Chronic systolic (congestive) heart failure; I42.9 Cardiomyopathy, unspecified; I25.2 Old myocardial infarction; I12.9 Hypertensive chronic kidney disease with stage 1 through stage 4 chronic kidney disease, or unspecified chronic kidney disease; E11.22 Type 2 diabetes mellitus with diabetic chronic kidney disease; N18.9 Chronic kidney disease, unspecified; I95.9 Hypotension, unspecified; E27.8 Other specified disorders of adrenal gland; E86.0 Dehydration; E87.5 Hyperkalemia; I25.10 Atherosclerotic heart disease of native coronary artery without angina pectoris; Z95.5 Presence of coronary angioplasty implant and graft; Z79.899 Other long term (current) drug therapy; Z88.8 Allergy status to other drugs, medicaments and biological substances
CPT/HCPCS: 36415; 36416; 71045; 71275; 80053; 81001; 83605; 84484; 85025; 87428; 93005; 93306; 94640; J1815; J7120; J7620; Q0162; Q9967